=== PATIENT | male | born 2005 | race Caucasian/White ===

== ENCOUNTER 2025-04-20 10:02 | Emergency (ER) | payer MEDICAID, SELFPAY ==
--- NOTE | ~2025-04-20 | XR_ITS ---
CLINICAL HISTORY: s p g tube placement Two-view abdomen Comparison: None provided Findings: Contrast was injected via a gastrostomy tube. The gastrostomy tube is at the level of the distal body of the stomach. There is no gastrostomy tube leak. There is gaseous distention of small bowel without dilatation at visualized levels. There is moderate fecal retention within the colon. IMPRESSION: The gastrostomy tube is at the level of the distal body of the stomach. There is no gastrostomy tube leak. This document has been electronically signed by: Jolie Mcneil MD on 04/20/2025 13:07:23
[2025-04-20 10:10] VITALS: BP 112/78; PULSE 88; O2SAT 98
[2025-04-20 10:37] VITALS: BP 96/68; PULSE 90; RESP 22; TEMP 36.9; O2SAT 98; BMI 24.0
[2025-04-20 11:06] VITALS: BP 104/81; PULSE 84; RESP 20; O2SAT 96
--- NOTE | 2025-04-20 11:09 | PC.NURSE ---
19 M presents to ED from [facility] for pulling out his GT tube. PT is anxious, alert, nonverbal at baseline d/t TBI. RR even and elevated likely d/t appearing anxious. No visible s/s of distress.
--- OUTSIDE RECORDS SUMMARY | 2025-04-20 11:25 | XMS_ITS | Encounter Summary ---
Author Organization [facility] Address [address] [place] [address] Care Team Providers Care Vault Mechanic Name Role Phone Konrad Ivy MD Primary Care Provider [phone] Encounter Details Date Type Department Care Team (Late st Contact Info) Description 03/05/2025 Lab Requisition [facility] - Main Lab [address] [facility] [place] [address] Konrad Ivy MD [address] [place] [address] [address] [place] Diffuse traumatic brain injury with loss of consciousness of unspecified duration, sequela (CMS/HCC V24) Social History Tobacco Use Types Packs/Day Years Used Date Smoking Tobacco: Never Assessed Sex and Gender Information Value Date Recorded Sex Assigned at Not on file Legal Sex Male 7:36 AM EDT Gender Identity Not on file Sexual Orientation Not on file documented as of this encounter Plan of Treatment Not on file documented as of this encounter Procedures Procedure Name Priority Date/Time Associated Diagnosis Comments COMPREHENSIVE METABOLIC PANEL Routine 03/05/2025 6:48 AM EDT Diffuse traumatic brain injury with loss of consciousness of unspecified duration, sequela (CMS/HCC V24) documented in this encounter Results * (ABNORMAL) Comprehensive metabolic panel (03/05/2025 6:48 AM EDT) Sodium 129(L) 133 - 145 mmol/L LAB CHEMISTRY METHOD 03/05/2025 8:14 AM T [facility] Potassium 4.8 3.5 - 5.5 mmol/L LAB CHEMISTRY METHOD 03/05/2025 8:14 AM EDT [facility] Comment:Hemolysis present Chloride 98 96 - 110 mmol/L LAB CHEMISTRY METHOD 03/05/2025 8:14 AM [facility] CO2 27 21 - 32 mmol/L LAB CHEMISTRY METHOD 03/05/2025 8:14 AM [facility] Anion Gap 4 3 - 11 LAB CHEMISTRY METHOD 03/05/2025 8:14 AM [facility] Glucose 72 70 - 100 mg/dL LAB CHEMISTRY METHOD 03/05/2025 8:14 AM [facility] BUN 10 5 - 25 mg/dL LAB CHEMISTRY METHOD 03/05/2025 8:14 AM [facility] Creatinine 0.55(L) 0.70 - 1.30 mg/dL LAB CHEMISTRY METHOD 03/05/2025 8:14 AM [facility] eGFR 145 >=60 mL/min/1. 73m2 LAB CHEMISTRY METHOD 03/05/2025 8:14 AM [facility] Comment:Calculation based on the Chronic Kidney Disease Epidemiology Collaboration (CKD-EPI) equation refit without adjustment for race. BUN/Creatinine Ratio 18.2 LAB CHEMISTRY METHOD 03/05/2025 8:14 AM [facility] Calcium 9.4 8.5 - 10.5 mg/dL LAB CHEMISTRY METHOD 03/05/2025 8:14 AM [facility] AST (SGOT) 16 10 - 42 unit/L LAB CHEMISTRY METHOD 03/05/2025 8:14 AM [facility] Comment:Hemolysis present ALT (SGPT) 28 10 - 60 unit/L LAB CHEMISTRY METHOD 03/05/2025 8:14 AM [facility] Alkaline Phosphatase 142(H) 42 - 121 unit/L LAB CHEMISTRY METHOD 03/05/2025 8:14 AM [facility] Total Protein 6.6 6.0 - 8.0 g/dL LAB CHEMISTRY METHOD 03/05/2025 8:14 AM [facility] Albumin 3.8 3.2 - 5.0 g/dL LAB CHEMISTRY METHOD 03/05/2025 8:14 AM EDT [facility] Total Bilirubin 0.2 0.0 - 1.4 mg/dL LAB CHEMISTRY METHOD 03/05/2025 8:14 AM EDT [facility] Blood Venous blood specimen / Unknown 03/05/2025 6:48 AM EDT 03/05/2025 7:37 AM EDT us Konrad Ivy MD LAB BLOOD ORDERABLES Final Resul t [facility] [address] [place] [address], documented in this encounter Visit Diagnoses Diagnosis Diffuse traumatic brain injury with loss of consciousness of unspecified duration, sequela (CMS/HCC V24) documented in this encounter Care Teams Vault Mechanic Relationship Specialty Start Date End Date Konrad Ivy MD [address] [place] [address] Dr [address] [place], [place] PCP - General Internal Medicine 12/03/24 documented as of this encounter
--- OUTSIDE RECORDS SUMMARY | 2025-04-20 11:25 | XMS_ITS | Encounter Summary ---
Author Organization [employer] Address [address] [place] [address] Care Team Providers Care Vacuum Cleaner Operator Name Role Phone Konrad Ivy MD Primary Care Provider [phone] Encounter Details Date Type Department Care Team (Late st Contact Info) Description 12/03/2024 Lab Requisition [facility] - Main Lab [address] [facility] [place] [address] Konrad Ivy MD [address] [place] [address] Dr [address] [place] Epilepsy, unspecified, not intractable, without status epilepticus (CMS/HCC V24, CMS/HCC V28) Social History Tobacco Use Types Packs/Day Years [...] Procedure Name Priority Date/Time Associated Diagnosis Comments CLOBAZAM AND METABOLITE Routine 12/03/2024 7:05 AM EDT Epilepsy, unspecified, not intractable, without status epilepticus (CMS/HCC V24, CMS/HCC V28) LIPID PANEL WITH REFLEX TO DIRECT LDL Routine 12/03/2024 7:05 AM EDT Epilepsy, unspecified, not intractable, without status epilepticus (CMS/HCC V24, CMS/HCC V28) LACOSAMIDE, SERUM OR PLASMA Routine 12/03/2024 7:05 AM EDT Epilepsy, unspecified, not intractable, without status epilepticus (CMS/HCC V24, CMS/HCC V28) CBC WITH AUTO DIFFERENTIAL Routine 12/03/2024 7:05 AM EDT Epilepsy, unspecified, not intractable, without status epilepticus (CMS/HCC V24, CMS/HCC V28) OXCARBAZEPINE LEVEL Routine 12/03/2024 7 :05 AM EDT Epilepsy, unspecified, not intractable, without status epilepticus (CMS/HCC V24, CMS/HCC V28) CBC AND DIFFERENTIAL Routine 12/03/2024 7:05 AM EDT Epilepsy, unspecified, not intractable, without status epilepticus (CMS/HCC V24, CMS/HCC V28) THYROID STIMULATING HORMONE Routine 12/03/2024 7:05 AM EDT Epilepsy, unspecified, not intractable, without status epilepticus (CMS/HCC V24, CMS/HCC V28) COMPREHENSIVE METABOLIC PANEL Routine 12/03/2024 7:05 AM EDT Epilepsy, unspecified, not intractable, without status epilepticus (CMS/HCC V24, CMS/HCC V28) documented in this encounter Results * Lacosamide level (12/03/2024 7:05 AM EDT) [facility] Lacosamide 2.1 mcg/mL 12/12/2024 4:40 PM EDT [facility] Comment: (Note) Expected concentrations of Lacosamide in patients receiving recommended daily dosages: Up to 15.0 mcg/mL.Toxic range not established. This test was developed and its analytical performance characteristics have been determined by [employer]. It has not been cleared or approved by the FDA. This assay has been validated pursuant to the CLIA regulations and is used for clinical purposes. [facility] [address] [place] [address],[address] [facility] [address] Mirna Cano MD, PhD Test Performed at: [facility] [address] [place] [address], [address] [place] [address] James Cano MD, PhD Blood Venous blood specimen / Unknown 12/03/2024 7:05 AM EDT 12/06/2024 12:04 PM EDT us Konrad Ivy MD LAB BLOOD ORDERABLES Final Resul [place] [address] * (ABNORMAL) CBC auto differential (12/03/2024 7:05 AM EDT) WBC 8.8 4.8 - 10.8 K/mcL LAB HEMETOLOGY METHOD 12/03/2024 8:47 AM EDT [facility] RBC 4.60 4.50 - 5.50 M/mcL LAB HEMETOLOGY METHOD 12/03/2024 8:47 AM [facility] Hemoglobin 13.8 13.5 - 17.5 g/dL LAB HEMETOLOGY METHOD 12/03/2024 8:47 AM [facility] Hematocrit 40.8(L) 42.0 - 54.0 % LAB HEMETOLOGY METHOD 12/03/2024 8:47 AM [facility] MCV 89.7 79.0 - 98.0 FL LAB HEMETOLOGY METHOD 12/03/2024 8:47 AM [facility] MCH 30.3 27.0 - 32.0 pcg LAB HEMETOLOGY METHOD 12/03/2024 8:47 AM [facility] MCHC 33.8 32.0 - 37.0 g/dL LAB HEMETOLOGY METHOD 12/03/2024 8:47 AM [facility] RDW 15.3(H) 11.0 - 15.0 % LAB HEMETOLOGY METHOD 12/03/2024 8:47 AM [facility] Platelets 225 130 - 400 K/mcL LAB HEMETOLOGY METHOD 12/03/2024 8:47 AM [facility] Comment:occ plt clump seen o n slide MPV 13.0(H) 7.0 - 11.0 FL LAB HEMETOLOGY METHOD 12/03/2024 8:47 AM [facility] NRBC 0.0 <1.0 % LAB HEMETOLOGY METHOD 12/03/2024 8:47 AM [facility] NRBC Absolute 0.00 <0.10 K/mcL LAB HEMETOLOGY METHOD 12/03/2024 8:47 AM [facility] Neutrophils Relative 48.3 % LAB HEMETOLOGY METHOD 12/03/2024 8:47 AM [facility] Comment:This is an appended report. These results have been appended to a previously preliminary verified report. Lymphocytes Relative 27.5 % LAB HEMETOLOGY METHOD 12/03/2024 8:47 AM [facility] Comment:This is an appended report. These results have been appended to a previously preliminary verified report. Monocytes Relative 21.0 % LAB HEMETOLOGY METHOD 12/03/2024 8:47 AM [facility] Comment:This is an appended report. These results have been appended to a previously preliminary verified report. Eosinophils Relative 2.0 % LAB HEMETOLOGY METHOD 12/03/2024 8:47 AM [facility] Comment:This is an appended report. These results have been appended to a previously preliminary verified report. Basophils Relative 1.1 % LAB HEMETOLOGY METHOD 12/03/2024 8:47 AM [facility] Comment:This is an appended report. These results have been appended to a previously preliminary verified report. Immature Granulocytes Relative 0.1 % LAB HEMETOLOGY METHOD 12/03/2024 8:47 AM [facility] Comment:This is an appended report. These results have been appended to a previously preliminary verified report. Neutrophils Absolute 4.26 1.50 - 7.00 K/mcL LAB HEMETOLOGY METHOD 12/03/2024 8:47 AM [facility] Comment:This is an appended report. These results have been appended to a previously preliminary verified report. Lymphocytes Absolute 2.43 1.00 - 5.00 K/mcL LAB HEMETOLOGY METHOD 12/03/2024 8:47 AM EDT [facility] Comment:This is an appended report. These results have been appended to a previously preliminary verified report. Monocytes Absolute 1.85(H) 0.20 - 1.00 K/[facility] 12/03/2024 8:47 AM EDT [facility] Comment:This is an appended report. These results have been appended to a previously preliminary verified report. Eosinophils Absolute 0.18 0.00 - 0.50 K/[facility] 12/03/2024 8:47 AM EDT [facility] Comment:This is an appended report. These results have been appended to a previously preliminary verified report. Basophils Absolute 0.10 0.00 - 0.20 K/[facility] LAB HEMETOLOGY METHOD 12/03/2024 8:47 AM EDT [facility] Comment:This is an appended report. These results have been appended to a previously preliminary verified report. Immature Granulocytes Absolute 0.01 0.00 - 0.03 K/[facility] 12/03/2024 8:47 AM EDT [facility] Comment:This is an appended report. These results have been appended to a previously preliminary verified report. Blood Venous blood specimen / Unknown 12/03/2024 7:05 AM EDT 12/03/2024 7:44 AM EDT us Konrad Ivy MD LAB BLOOD ORDERABLES Final Resul t [facility] ([facility]) [facility] [address] [place] [address], * Thyroid stimulating hormone (12/03/2024 7:05 AM EDT) TSH 1.04 0.40 - 4.00 mcIU/mL LAB CHEMISTRY METHOD 12/03/2024 10:58 AM EDT [facility] Blood Venous blood specimen / Unknown 12/03/2024 7:05 AM EDT 12/03/2024 7:44 AM EDT us Konrad Ivy MD LAB BLOOD ORDERABLES Final Resul t Performing Organization Address [facility]/ZIP Co de Phone Number [facility] [address] [place] [address], [place] [phone] * Oxcarbazepine level (12/03/2024 7:05 AM EDT) Oxcarbazepine 13.4 10 - 35 ug/mL 12/05/2024 1:46 PM EDT [facility] Comment: If applicable, any drug confirmation testing reported here was developed and the performance characteristics determined by [facility]. This confirmation testing has not been cleared or approved by the FDA. The laboratory is regulated under CLIA as qualified to perform high-complexity testing. This test is used for patient testing purposes. It should not be regarded as investigational or for research. Test performed at [facility], [address], [place] [address] Paris Brand MD, PhD - Fur Storage Clerk Blood Venous blood specimen / Unknown 12/03/2024 7:05 AM EDT 12/03/2024 7:44 AM EDT us Konrad Ivy MD LAB BLOOD ORDERABLES Final Resul t Performing Organization Address City/[facility]/ZIP Co de Phone Number [facility] [address] [place] [address] * (ABNORMAL) Clobazam and metabolite (12/03/2024 7:05 AM EDT) Clobazam 117 30 - 300 ng/mL 12/09/2024 7:43 AM EDT [facility] Comment: INTERPRETIVE INFORMATION: Clobazam and Metabolite, Quant, S/P Clobazam Therapeutic Range: 30-300 ng/mL Toxic Range: Greater than 500 ng/mL N-Desmethylclobazam Therapeutic Range: 300-3000 ng/mL Toxic Range: Greater than 5000 ng/mL Clobazam is a benzodiazepine drug indicated for adjunctive treatment for seizures associated with Erasmo-Gastaut syndrome in patients 2 years and older. The therapeutic range is based on serum, pre-dose (trough) draw collection at steady-state concentration. The pharmacokinetics of clobazam are influenced by drug-drug interactions and by poor [id number] metabolism. The metabolite, N-desmethylclobazam has about 20% activity of clobazam. Adverse effects may include constipation, somnolence, sedation and skin rash. The concomitant use of clobazam with other central nervous system (PROJECT MANAGEMENT DIRECTOR) depressants may increase the risk of somnolence and sedation. Test developed and characteristics determined by [facility] [employer] See Compliance Statement B: Ch[place]/CS N-Desmethylclobazam 3375(H) 300 - 3000 ng/mL 12/09/2024 7:43 AM EDT [facility] Comment: Performed By: [facility] [address] [place] [address] Coin Teller: Emeka Granados MD, PhD CLIA Number: [id number] Blood Venous blood specimen / Unknown 12/03/2024 7:05 AM EDT 12/03/2024 7:44 AM EDT us Konrad Ivy MD LAB BLOOD ORDERABLES Final Resul t [facility] [address] [place] [address] * Lipid panel with reflex to direct LDL (12/03/2024 7:05 AM EDT) [facility] Cholesterol 156 0 - 200 mg/dL LAB CHEMISTRY METHOD 12/03/2024 8:55 AM EDT [facility] Triglycerides 67 0 - 150 mg/dL LAB CHEMISTRY METHOD 12/03/2024 8:55 AM EDT [facility] HDL 52 >=40 mg/dL LAB CHEMISTRY METHOD 12/03/2024 8:55 AM EDT [facility] LDL Calculated 91 0 - 100 mg/dL LAB CHEMISTRY METHOD 12/03/2024 8:55 AM EDT [facility] VLDL Cholesterol Adam 13.4 mg/dL LAB CHEMISTRY METHOD 12/03/2024 8:55 AM [facility] Non HDL Chol. (LDL+VLDL) 104 <145 mg/dL LAB CHEMISTRY METHOD 12/03/2024 8:55 AM T [facility] Chol/HDL Ratio 3.0 0.0 - 4.4 LAB CHEMISTRY METHOD 12/03/2024 8:55 AM [facility] Blood Venous blood specimen / Unknown 12/03/2024 7:05 AM EDT 12/03/2024 7:44 AM EDT us Konrad Ivy MD LAB BLOOD ORDERABLES Final Resul t [facility] [address] [place] [address], [place] [phone] * (ABNORMAL) Comprehensive metabolic panel (12/03/2024 7:05 AM EDT) Sodium 133 133 - 145 mmol/L LAB CHEMISTRY METHOD 12/03/2024 8:55 AM [facility] Potassium 4.3 3.5 - 5.5 mmol/L LAB CHEMISTRY METHOD 12/03/2024 8:55 AM [facility] Comment:Hemolysis present Chloride 101 96 - 110 mmol/L LAB CHEMISTRY METHOD 12/03/2024 8:55 AM [facility] CO2 25 21 - 32 mmol/L LAB CHEMISTRY METHOD 12/03/2024 8:55 AM [facility] Anion Gap 7 3 - 11 LAB CHEMISTRY METHOD 12/03/2024 8:55 AM [facility] Glucose 80 70 - 100 mg/dL LAB CHEMISTRY METHOD 12/03/2024 8:55 AM [facility] BUN 9 5 - 25 mg/dL LAB CHEMISTRY METHOD 12/03/2024 8:55 AM [facility] Creatinine 0.40(L) 0.70 - 1.30 mg/dL LAB CHEMISTRY METHOD 12/03/2024 8:55 AM [facility] eGFR 161 >=60 mL/min/1. 73m2 LAB CHEMISTRY METHOD 12/03/2024 8:55 AM [facility] Comment:Calculation based on the Chronic Kidney Disease Epidemiology Collaboration (CKD-EPI) equation refit without adjustment for race. BUN/Creatinine Ratio 22.5 LAB CHEMISTRY METHOD 12/03/2024 8:55 AM [facility] Calcium 9.4 8.5 - 10.5 mg/dL LAB CHEMISTRY METHOD 12/03/2024 8:55 AM [facility] AST (SGOT) 20 10 - 42 unit/L LAB CHEMISTRY METHOD 12/03/2024 8:55 AM [facility] Comment:Hemolysis present ALT (SGPT) 23 10 - 60 unit/L LAB CHEMISTRY METHOD 12/03/2024 8:55 AM [facility] Alkaline Phosphatase 144(H) 42 - 121 unit/L LAB CHEMISTRY METHOD 12/03/2024 8:55 AM [facility] Total Protein 6.7 6.0 - 8.0 g/dL LAB CHEMISTRY METHOD 12/03/2024 8:55 AM [facility] Albumin 3.5 3.2 - 5.0 g/dL LAB CHEMISTRY METHOD 12/03/2024 8:55 AM [facility] Total Bilirubin 0.3 0.0 - 1.4 mg/dL LAB CHEMISTRY METHOD 12/03/2024 8:55 AM [facility] Blood Venous blood specimen / Unknown 12/03/2024 7:05 AM EDT 12/03/2024 7:44 AM EDT Konrad Ivy MD LAB BLOOD ORDERABLES Final Resul t [facility] ([facility]) [facility] [address] [place] [address], documented in this encounter Visit Diagnoses Diagnosis Epilepsy, unspecified, not intractable, without status epilepticus (CMS/HCC V24, CMS/HCC V28) documented in this encounter Care Teams Vacuum Cleaner Operator Relationship Specialty Start Date End Date Konrad Ivy MD [address] [place] [address] Dr [address] [place], [place] PCP - General Internal Medicine 12/03/24 documented as of this encounter
--- OUTSIDE RECORDS SUMMARY | 2025-04-20 11:26 | XMS_ITS | Clinical Summary ---
Author Organization [address] [facility] Address [address] [place] [address] Phone Care Team Providers Care Mud Mixer Helper Name Role Phone Konrad Ivy MD Primary Care Provider [phone] Encounters Date Type Department Care Team Description 03/28/2025 Lab Requisition [facility] [address] [place] [phone] Konrad Ivy MD Hypo-osmolality and hyponatremia 03/21/2025 Lab Requisition [facility] [address] [place] [phone] Konrad Ivy MD Other senior care (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; Hypo-osmolality and hyponatremia 03/12/2025 Lab Requisition [facility] [address] [place] [phone] Konrad Ivy MD Other senior care (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 03/05/2025 Lab Requisition [facility] [address] [place] [phone] Konrad Ivy MD Diffuse traumatic brain injury with loss of consciousness of unspecified duration, sequela (CMS/HCC V24) from Last 3 Months Social History Tobacco Use Types Packs/Day Years Used Date Smoking Tobacco: Never Assessed Sex and Gender Information Value Date Recorded Sex Assigned at Not on file Legal Sex Male 7:36 AM EDT Gender Identity Not on file Sexual Orientation Not on file Plan of Treatment Health Maintenance Due Date Last Done Comments Varicella Vaccines (1 of 2 - 13+ 2-dose series) 2017 HPV Vaccines (1 - Male 3-dos e series) 10/08/2019 Meningococcal B Vaccine (1 o f 2 - Standard) 2020 DTaP,Tdap,and Td Vaccines (1 - Tdap) 10/08/2023 Hepatitis B Vaccines (1 of 3 - 19+ 3-dose series) 10/08/2023 Depression Screening 07/31/2024 Annual Well Child Visit (3-2 1 years old) 12/03/2024 HIV Screening 12/03/2024 Hepatitis C Screening 12/03/2024 Social Influencers of Health Screening 12/03/2024 COVID-19 Vaccine (1 - 2023-2 5 season) 2025 Influenza Vaccine (#1) 2025 Cholesterol Screening (Lipid Panel) 12/03/2029 12/03/2024 RSV Immunization Adult Patie nts (1 - 1-dose 75+ series) 10/08/2079 HIB Vaccines Aged Out No longer eligi ble based on patient's age to complete this topic Hepatitis A Vaccines Aged Out No long er eligible based on patient's age to complete this topic IPV Vaccines Aged Out No longer eligi ble based on patient's age to complete this topic MMR Vaccines Aged Out No longer eligi ble based on patient's age to complete this topic Meningococcal ACWY Vaccine Aged Out N o longer eligible based on patient's age to complete this topic Pneumococcal Vaccine: Pediat rics (0 to 5 Years) and At-Risk Patients (6 to 49 Years) Aged Out No longer eligi ble based on patient's age to complete this topic RSV Immunization Patients Un felipe 20 months Aged Out No longer eligible b ased on patient's age to complete this topic Procedures Procedure Name Priority Date/Time Associated Diagnosis Comments COMPREHENSIVE METABOLIC PANEL Routine 03/28/2025 7:12 AM EDT Hypo-osmolality and hyponatremia OXCARBAZEPINE LEVEL Routine 03/21/2025 6 :15 AM EDT 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 Hypo-osmolality and hyponatremia BASIC METABOLIC PANEL Routine 03/21/2025 6:15 AM EDT Other senior care (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 Hypo-osmolality and hyponatremia COMPREHENSIVE METABOLIC PANEL Routine 03/12/2025 6:15 AM EDT Other senior care (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 COMPREHENSIVE METABOLIC PANEL Routine 03/05/2025 6:48 AM EDT Diffuse traumatic brain injury with loss of consciousness of unspecified duration, sequela ([facility] V24) LIPID PANEL WITH REFLEX TO DIRECT LDL Routine 12/03/2024 7:05 AM EDT Epilepsy, unspecified, not intractable, without status epilepticus ([facility] V24, [facility] V28) from Last 3 Months or Most Recently Relevant to Health Maintenance Results * (ABNORMAL) Comprehensive metabolic panel (03/28/2025 7:12 AM EDT) Only the most recent of3 resultswithin the time period is included. Sodium 131(L) 133 - 145 mmol/L LAB CHEMISTRY METHOD 03/28/2025 8:26 AM [facility] Potassium 4.8 3.5 - 5.5 mmol/L LAB CHEMISTRY METHOD 03/28/2025 8:26 AM [facility] Chloride 97 96 - 110 mmol/L LAB CHEMISTRY METHOD 03/28/2025 8:26 AM [facility] CO2 29 21 - 32 mmol/L LAB CHEMISTRY METHOD 03/28/2025 8:26 AM [facility] Anion Gap 5 3 - 11 LAB CHEMISTRY METHOD 03/28/2025 8:26 AM [facility] Glucose 76 70 - 100 mg/dL LAB CHEMISTRY METHOD 03/28/2025 8:26 AM [facility] BUN 12 5 - 25 mg/dL LAB CHEMISTRY METHOD 03/28/2025 8:26 AM [facility] Creatinine 0.53(L) 0.70 - 1.30 mg/dL LAB CHEMISTRY METHOD 03/28/2025 8:26 AM [facility] eGFR 147 >=60 mL/min/1. 73m2 LAB CHEMISTRY METHOD 03/28/2025 8:26 AM [facility] Comment:Calculation based on the Chronic Kidney Disease Epidemiology Collaboration (CKD-EPI) equation refit without adjustment for race. BUN/Creatinine Ratio 22.6 LAB CHEMISTRY METHOD 03/28/2025 8:26 AM T [facility] Calcium 9.2 8.5 - 10.5 mg/dL LAB CHEMISTRY METHOD 03/28/2025 8:26 AM [facility] AST (SGOT) 16 10 - 42 unit/L LAB CHEMISTRY METHOD 03/28/2025 8:26 AM [facility] ALT (SGPT) 26 10 - 60 unit/L LAB CHEMISTRY METHOD 03/28/2025 8:26 AM [facility] Alkaline Phosphatase 141(H) 42 - 121 unit/L LAB CHEMISTRY METHOD 03/28/2025 8:26 AM [facility] Total Protein 6.7 6.0 - 8.0 g/dL LAB CHEMISTRY METHOD 03/28/2025 8:26 AM [facility] Albumin 3.8 3.2 - 5.0 g/dL LAB CHEMISTRY METHOD 03/28/2025 8:26 AM [facility] Total Bilirubin 0.3 0.0 - 1.4 mg/dL LAB CHEMISTRY METHOD 03/28/2025 8:26 AM [facility] Blood Venous blood specimen / Unknown 03/28/2025 7:12 AM EDT 03/28/2025 7:58 AM EDT us Konrad Ivy MD LAB BLOOD ORDERABLES Final Resul t [facility] [address] [place] [address], * Oxcarbazepine level (03/21/2025 6:15 AM EDT) Oxcarbazepine 29.7 10 - 35 ug/mL 03/24/2025 2:40 PM EDT [facility] Comment: If applicable, any drug confirmation testing reported here was developed and the performance characteristics determined by [facility]. This confirmation testing has not been cleared or approved by the FDA. The laboratory is regulated under CLIA as qualified to perform high-complexity testing. This test is used for patient testing purposes. It should not be regarded as investigational or for research. Test performed at [facility], [address], [place] [address] Paris Brand MD, PhD - Team Facilitator Blood Venous blood specimen / Unknown 03/21/2025 6:15 AM EDT 03/21/2025 6:52 AM EDT us Konrad Ivy MD LAB BLOOD ORDERABLES Final Resul t [facility] [address] [place] [address] * (ABNORMAL) Basic metabolic panel (03/21/2025 6:15 AM EDT) Sodium 128(L) 133 - 145 mmol/L LAB CHEMISTRY METHOD 03/21/2025 7:30 AM [facility] Potassium 5.5 3.5 - 5.5 mmol/L LAB CHEMISTRY METHOD 03/21/2025 7:30 AM [facility] Chloride 95(L) 96 - 110 mmol/L LAB CHEMISTRY METHOD 03/21/2025 7:30 AM [facility] CO2 24 21 - 32 mmol/L LAB CHEMISTRY METHOD 03/21/2025 7:30 AM [facility] Anion Gap 9 3 - 11 LAB CHEMISTRY METHOD 03/21/2025 7:30 AM [facility] Glucose 73 70 - 100 mg/dL LAB CHEMISTRY METHOD 03/21/2025 7:30 AM [facility] BUN 11 5 - 25 mg/dL LAB CHEMISTRY METHOD 03/21/2025 7:30 AM [facility] Creatinine 0.42(L) 0.70 - 1.30 mg/dL LAB CHEMISTRY METHOD 03/21/2025 7:30 AM EDT [facility] eGFR 158 >=60 mL/min/1. 73m2 LAB CHEMISTRY METHOD 03/21/2025 7:30 AM T [facility] Comment:Calculation based on the Chronic Kidney Disease Epidemiology Collaboration (CKD-EPI) equation refit without adjustment for race. BUN/Creatinine Ratio 26.2 LAB CHEMISTRY METHOD 03/21/2025 7:30 AM [facility] Calcium 9.5 8.5 - 10.5 mg/dL LAB CHEMISTRY METHOD 03/21/2025 7:30 AM [facility] Blood Venous blood specimen / Unknown 03/21/2025 6:15 AM EDT 03/21/2025 6:52 AM EDT us Konrad Ivy MD LAB BLOOD ORDERABLES Final Resul t [facility] [address] [place] [address], [place] [phone] * Lipid panel with reflex to direct LDL (12/03/2024 7:05 AM EDT) Cholesterol 156 0 - 200 mg/dL LAB CHEMISTRY METHOD 12/03/2024 8:55 AM [facility] Triglycerides 67 0 - 150 mg/dL LAB CHEMISTRY METHOD 12/03/2024 8:55 AM EDT [facility] HDL 52 >=40 mg/dL LAB CHEMISTRY METHOD 12/03/2024 8:55 AM EDT [facility] LDL Calculated 91 0 - 100 mg/dL LAB CHEMISTRY METHOD 12/03/2024 8:55 AM T [facility] VLDL Cholesterol Adam 13.4 mg/dL LAB CHEMISTRY METHOD 12/03/2024 8:55 AM EDT [facility] Non HDL Chol. (LDL+VLDL) 104 <145 mg/dL LAB CHEMISTRY METHOD 12/03/2024 8:55 AM EDT [facility] Chol/HDL Ratio 3.0 0.0 - 4.4 LAB CHEMISTRY METHOD 12/03/2024 8:55 AM EDT [facility] Blood Venous blood specimen / Unknown 12/03/2024 7:05 AM EDT 12/03/2024 7:44 AM EDT us Konrad Ivy MD LAB BLOOD ORDERABLES Final Resul t [facility] [address] [place] [address], from Last 3 Months or Most Recently Relevant to Health Maintenance Insurance MEDICAID - [place] [facility] Care Teams Mud Mixer Helper Relationship Specialty Start Date End Date Konrad Ivy MD [address] [place] [address] [address] DIL[place]aff[place] PCP - General Internal Medicine 12/03/24
--- OUTSIDE RECORDS SUMMARY | 2025-04-20 11:26 | XMS_ITS | Encounter Summary ---
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 Social History Tobacco Use Types Packs/Day Years [...] Associated Diagnosis Comments COMPREHENSIVE METABOLIC PANEL Routine 03/12/2025 6:15 AM EDT Other correction (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 documented in this encounter Results * (ABNORMAL) Comprehensive metabolic panel (03/12/2025 6:15 AM EDT) Sodium 132(L) 133 - 145 mmol/L LAB CHEMISTRY METHOD 03/12/2025 8:11 AM EDT [facility] Potassium 4.7 3.5 - 5.5 mmol/L LAB CHEMISTRY METHOD 03/12/2025 8:11 AM EDT [facility] Chloride 98 96 - 110 mmol/L LAB CHEMISTRY METHOD 03/12/2025 8:11 AM [facility] CO2 28 21 - 32 mmol/L LAB CHEMISTRY METHOD 03/12/2025 8:11 AM [facility] Anion Gap 6 3 - 11 LAB CHEMISTRY METHOD 03/12/2025 8:11 AM [facility] Glucose 70 70 - 100 mg/dL LAB CHEMISTRY METHOD 03/12/2025 8:11 AM [facility] BUN 8 5 - 25 mg/dL LAB CHEMISTRY METHOD 03/12/2025 8:11 AM [facility] Creatinine 0.47(L) 0.70 - 1.30 mg/dL LAB CHEMISTRY METHOD 03/12/2025 8:11 AM [facility] eGFR 153 >=60 mL/min/1. 73m2 LAB CHEMISTRY METHOD 03/12/2025 8:11 AM [facility] Comment:Calculation based on the Chronic Kidney Disease Epidemiology Collaboration (CKD-EPI) equation refit without adjustment for race. BUN/Creatinine Ratio 17.0 LAB CHEMISTRY METHOD 03/12/2025 8:11 AM [facility] Calcium 9.3 8.5 - 10.5 mg/dL LAB CHEMISTRY METHOD 03/12/2025 8:11 AM [facility] AST (SGOT) 17 10 - 42 unit/L LAB CHEMISTRY METHOD 03/12/2025 8:11 AM [facility] ALT (SGPT) 21 10 - 60 unit/L LAB CHEMISTRY METHOD 03/12/2025 8:11 AM [facility] Alkaline Phosphatase 170(H) 42 - 121 unit/L LAB CHEMISTRY METHOD 03/12/2025 8:11 AM [facility] Total Protein 7.4 6.0 - 8.0 g/dL LAB CHEMISTRY METHOD 03/12/2025 8:11 AM [facility] Albumin 4.0 3.2 - 5.0 g/dL LAB CHEMISTRY METHOD 03/12/2025 8:11 AM [facility] Total Bilirubin 0.3 0.0 - 1.4 mg/dL LAB CHEMISTRY METHOD 03/12/2025 8:11 AM EDT [facility] Blood Venous blood specimen / Unknown 03/12/2025 6:15 AM EDT 03/12/2025 6:47 AM EDT us Konrad Ivy MD LAB BLOOD ORDERABLES Final Resul t [facility] [address] [place] [address], documented in this encounter Visit Diagnoses Diagnosis 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
--- OUTSIDE RECORDS SUMMARY | 2025-04-20 11:26 | XMS_ITS | Encounter Summary ---
[facility] Address [address] [place] [address] Care Team Providers Care Head Still Operator Name Role Phone Konrad Ivy MD Primary Care Provider [phone] Encounter Details Date Type Department Care Team (Late st Contact Info) Description 03/28/[address] [facility] - Main Lab [address] [place] [address] Konrad Ivy MD [address] [place] [address] Dr [address] [place] Hypo-osmolality and hyponatremia Social History Tobacco Use Types Packs/Day Years [...] 03/28/2025 7:12 AM EDT Hypo-osmolality and hyponatremia documented in this encounter Results * (ABNORMAL) Comprehensive metabolic panel (03/28/2025 7:12 AM EDT) Sodium 131(L) 133 - 145 mmol/L LAB CHEMISTRY METHOD 03/28/2025 8:26 AM EDT [facility] Potassium 4.8 3.5 - 5.5 mmol/L LAB CHEMISTRY METHOD 03/28/2025 8:26 AM EDT [facility] Chloride 97 96 - 110 mmol/L LAB CHEMISTRY METHOD 03/28/2025 8:26 AM T [facility] CO2 29 21 - 32 mmol/L LAB CHEMISTRY METHOD 03/28/2025 8:26 AM [facility] Anion Gap 5 3 - 11 LAB CHEMISTRY METHOD 03/28/2025 8:26 AM [facility] Glucose 76 70 - 100 mg/dL LAB CHEMISTRY METHOD 03/28/2025 8:26 AM [facility] BUN 12 5 - 25 mg/dL LAB CHEMISTRY METHOD 03/28/2025 8:26 AM [facility] Creatinine 0.53(L) 0.70 - 1.30 mg/dL LAB CHEMISTRY METHOD 03/28/2025 8:26 AM [facility] eGFR 147 >=60 mL/min/1. 73m2 LAB CHEMISTRY METHOD 03/28/2025 8:26 AM [facility] Comment:Calculation based on the Chronic Kidney Disease Epidemiology Collaboration (CKD-EPI) equation refit without adjustment for race. BUN/Creatinine Ratio 22.6 LAB CHEMISTRY METHOD 03/28/2025 8:26 AM [facility] Calcium 9.2 8.5 - 10.5 mg/dL LAB CHEMISTRY METHOD 03/28/2025 8:26 AM [facility] AST (SGOT) 16 10 - 42 unit/L LAB CHEMISTRY METHOD 03/28/2025 8:26 AM [facility] ALT (SGPT) 26 10 - 60 unit/L LAB CHEMISTRY METHOD 03/28/2025 8:26 AM [facility] Alkaline Phosphatase 141(H) 42 - 121 unit/L LAB CHEMISTRY METHOD 03/28/2025 8:26 AM [facility] Total Protein 6.7 6.0 - 8.0 g/dL LAB CHEMISTRY METHOD 03/28/2025 8:26 AM [facility] Albumin 3.8 3.2 - 5.0 g/dL LAB CHEMISTRY METHOD 03/28/2025 8:26 AM [facility] Total Bilirubin 0.3 0.0 - 1.4 mg/dL LAB CHEMISTRY METHOD 03/28/2025 8:26 AM EDT [facility] Blood Venous blood specimen / Unknown 03/28/2025 7:12 AM EDT 03/28/2025 7:58 AM EDT us Konrad Ivy MD LAB BLOOD ORDERABLES Final Resul t [facility] [address] [place] [address], documented in this encounter Visit Diagnoses Diagnosis Hypo-osmolality and hyponatremia documented in this encounter Care Teams Head Still Operator Relationship Specialty Start Date End Date Konrad Ivy MD [address] [place] [address] Dr [address] [place], [place] PCP - General Internal Medicine 12/03/24 documented as of this encounter
--- OUTSIDE RECORDS SUMMARY | 2025-04-20 11:26 | XMS_ITS | Encounter Summary ---
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; Hypo-osmolality and hyponatremia Social History Tobacco Use [...] Procedure Name Priority Date/Time Associated Diagnosis Comments OXCARBAZEPINE LEVEL Routine 03/21/2025 6 :15 AM EDT 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 This confirmation testing has not been cleared or approved by the FDA. The laboratory is regulated under CLIA as qualified to perform high-complexity testing. This test is used for patient testing purposes. It should not be regarded as investigational or for research. Test performed at [facility], [address], [place] [address] Paris Brand MD, PhD - Retail Supervisor Blood Venous blood specimen / Unknown 03/21/2025 6:15 AM EDT 03/21/2025 6:52 AM EDT us Konrad Ivy MD LAB BLOOD ORDERABLES Final Resul t [facility] [address] [place] [address] * (ABNORMAL) Basic metabolic panel (03/21/2025 6:15 AM EDT) Sodium 128(L) 133 - 145 mmol/L LAB CHEMISTRY METHOD 03/21/2025 7:30 AM [facility] Potassium 5.5 3.5 - 5.5 mmol/L LAB CHEMISTRY METHOD 03/21/2025 7:30 AM [facility] Chloride 95(L) 96 - 110 mmol/L LAB CHEMISTRY METHOD 03/21/2025 7:30 AM [facility] CO2 24 21 - 32 mmol/L LAB CHEMISTRY METHOD 03/21/2025 7:30 AM [facility] Anion Gap 9 3 - 11 LAB CHEMISTRY METHOD 03/21/2025 7:30 AM [facility] Glucose 73 70 - 100 mg/dL LAB CHEMISTRY METHOD 03/21/2025 7:30 AM [facility] BUN 11 5 - 25 mg/dL LAB CHEMISTRY METHOD 03/21/2025 7:30 AM [facility] Creatinine 0.42(L) 0.70 - 1.30 mg/dL LAB CHEMISTRY METHOD 03/21/2025 7:30 AM [facility] eGFR 158 >=60 mL/min/1. 73m2 LAB CHEMISTRY METHOD 03/21/2025 7:30 AM EDT [facility] Comment:Calculation based on the Chronic Kidney Disease Epidemiology Collaboration (CKD-EPI) equation refit without adjustment for race. 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
--- NOTE | 2025-04-20 11:31 | ED_ITS ---
HPI - General Adult General Chief complaint: General Medical Stated complaint: g-tube out Time Seen by Provider: 04/20/25 10:25 Source: EMS and RN notes reviewed Mode of arrival: EMS Limitations: no limitations History of Present Illness ED Provider: DR. Baker HPI narrative: 19-year-old male from care 1 came in by ambulance for G-tube placement. Patient is nonverbal non historian old records are not available to review patient's history. Related Data Allergies Allergy/AdvReac Type Severity Reaction Status Date / Time cefepime Allergy Unknown Verified 04/20/25 10:42 Sulfa (Sulfonamide Allergy Unknown Verified 04/20/25 10:42 Antibiotics) trimethoprim Allergy Unknown Verified 04/20/25 10:42 Review of Systems Review of Systems: All other systems are reviewed and are negative Constitutional: Reports as per HPI and Reports no additional constitutional complaints Eyes: Reports as per HPI and Reports no additional eye complaints Reports system reviewed and no additional complaints, except as documented Cardiovascular: Reports as per HPI and Reports no additional cardiovascular complaints Respiratory: Reports as per HPI and Reports no additional respiratory complaints Gastrointestinal: Reports as per HPI and Reports no additional gastrointestinal complaints Genitourinary: Reports no additional female genitourinary complaints Musculoskeletal: Reports no additional musculoskeletal complaints Skin/Breast: Reports system reviewed and no additional complaints, except as docu Psychiatric: Reports no additional psychiatric complaints Endocrine: Reports no additional endocrine complaints Hematologic/Lymphatic: Reports no additional hematologic/lymphatic complaints Allergic/Immunologic: Reports no additional allergic/immunologic complaints Reports system reviewed and no additional complaints, except as documented and Reports Abnormal speech present [facility] Social History Social History Smoked in Last 30 Days: No Advance Directives: No Advance Directives Information Provided: No Do you have a plan to hurt others: No Plan Physical Exam ED Vital Signs: Vital Signs - 24 hr 04/20/25 10:37 04/20/25 11:06 04/20/25 12:00 Temperature 98.5 F 97.4 F Pulse Rate 90 84 91 Respiratory Rate 22 H 20 16 Blood Pressure 96/68 104/81 94/54 L Pulse Oximetry 98 96 95 Oxygen Delivery Method Room Air Room Air Room Air BMI result Body Mass Index 24.0 Vital signs have been reviewed and appear to be correct. Blood pressure elevated. Heart rate normal. Respiratory rate normal. Temperature normal. Oxygen saturation normal. Appearance: Alert. Nonverbal, No acute distress. Head: Normal external exam. Normocephalic. Atraumatic. No Suarez signs noted. No raccoon eyes noted Eyes: PERRLA. EOMI. Conjunctiva and sclera normal. Eyelids normal. ENT: TM's Normal. Pharynx normal. Uvula midline. Moist mucous membranes. No trismus noted. No drooling noted. No muffled voice noted. Neck: Normal inspection. Neck supple. FROM. No adenopathy. Thyroid Normal. No meningeal signs. No neck mass noted. CVS: Normal heart rate and rhythm. Heart sound normal. No murmurs noted. Pulses normal throughout. Respiratory: No respiratory distress. Painless inspiration. Breath sounds normal. No wheezes/rales/rhonchi noted. Chest nontender. No accessory muscle usage noted or decreased air movement noted. Abdomen: Soft and nontender. Bowel sounds normal in all 4 quadrants. No distention noted. No organomegaly noted. No visible injury noted. Back: No CVA tenderness. Full range of motion noted. Skin: Skin warm and dry. Normal skin color. Normal skin turgor. No rashes/lesions/lacerations noted. Extremities: No lower extremity edema. Extremities exhibit normal range of motion. Extremities nontender. Neuro: Nonverbal. Course Reevaluation(s) Reevaluation #1: G-tube placement, KUB with Gastrografin confirmed placement. Time: 12:30 Medications Administered Discontinued Medications Generic Name Dose Route Start Last Admin Trade Name Freq PRN Reason Stop Dose Admin Diatrizoate Meglum/Diatrizoate Sod 30 ml 04/20/25 11:55 04/20/25 11:56 Diatrizoate Meglumine, Sodium 30 Ml Solution PO 04/20/25 11:56 30 ml ONCE ONE Administration Medical Decision Making Differential Diagnosis Differential Diagnoses: The differential diagnosis associated with the presentation includes (G-tube insertion, small-bowel obstruction.) Admission/Observation Consideration of admission/observation: Escalation of care including admission/observation considered Independent Interpretation I performed an independent interpretation of an: Plain X-Ray (KUB with Gastrografin:Time: Date: 04/20/25 Provider: DR. Baker Patient in physician observation for psychiatric evaluation.? No acute events reported overnight. No current complaints. VS stable.? Patient is in bed search status. Will continue to monitor.) Radiology Impression Discussion of test interpretation with radiology: I have reviewed the radiologist's reading. Discharge Plan Discharge Clinical Impression: Gastrojejunostomy tube dislodgement Patient Disposition: Home, Self-Care Instructions: Tube Feeding (DC) Print Language: Croatian
[2025-04-20 12:00] VITALS: BP 94/54; PULSE 91; RESP 16; TEMP 36.3; O2SAT 95
--- NOTE | 2025-04-20 13:36 | PHA.MEDREC ---
Addendum entered by Dinora Ignacio RPh 04/20/25 16:31: MED REC REVIEWED BY [facility] Original Note: Pharmacy Consult ? Medication Reconciliation Pharmacy has completed the medication reconciliation. Utilized list from [facility] to confirm med list.
[2025-04-20 14:28] VITALS: BP 105/42; RESP 20
--- NOTE | 2025-04-20 14:32 | PC.NURSE ---
Report called to [facility] Ye[place] ROMERO. Report accept. Ambulance ride en-route.
== END 2025-04-20 15:01 ==
PROVIDERS: Emergency Provider Emergency Medicine; PCP Hospitalist
DX: K94.23 Gastrostomy malfunction (principal)
CPT/HCPCS: 74018; 99283; 99284

== ENCOUNTER → 2025-04-20 11:29 | Outpatient (BNV) | payer MEDICAID, SELFPAY | PROVIDERS: Emergency Provider Emergency Medicine; PCP Hospitalist; Visit Provider Radiology Diagnostic Radiology | DX: Z46.82 Encounter for fitting and adjustment of non-vascular catheter (principal) | CPT/HCPCS: 74018 ==

== ENCOUNTER 2025-04-21 18:02 | Emergency (ER) | payer OTHER, MEDICAID, SELFPAY ==
--- OUTSIDE RECORDS SUMMARY | 2025-04-17 10:30 | XMS_ITS | Encounter Summary ---
Author Organization [facility] Address [address] [place] [address] Care Team Providers Care Ui Lead Developer Name Role Phone Unavailable Primary Care Provider Unavailabl e Encounter Details Date Type Department Care Team (Late st Contact Info) Description 04/17/2025 10:30 AM EDT Office Visit [facility] [address] [place] [address] Daphne Luther, DDS [address] [place] [address] Social History Tobacco Use Types Packs/Day Years Used Date Smoking Tobacco: Never Assessed Sex and Gender Information Value Date Recorded Sex Assigned at Male 02/11/2025 2:23 PM EDT Legal Sex Male 2:12 PM EDT Gender Identity Male 02/11/2025 2:24 PM EDT Sexual Orientation Don't know 02/11/2025 2: 23 PM EDT documented as of this encounter Last Filed Vital Signs Vital Sign Reading Time Taken Comments Blood Pressure - - Pulse - - Temperature - - Respiratory Rate - - Oxygen Saturation - - Inhaled Oxygen Concentration - - Weight 65.3 kg (144 lb) 04/17/2025 9:00 AM EDT Height - - Body Mass Index - - documented in this encounter Progress Notes * Cher Baer DDS - 04/17/2025 10:30 AM EDT INTAKE Chief complaint: Desns appointment Time out performed verifying patient's name and Manufacturing Quality Manager needed: No VITALS Height: No data recorded Weight: 144 lb (65.3 kg) BMI: No previous contact with both weight and height data on file. MEDICAL HISTORY Medical History[1] Current Medications[2] Allergies[3] DENTAL HISTORY Brushing: Yes Flossing: No FINDINGS FROM EXAM Fabio: Unable to assess Mallampati: unable to assess Extraoral soft tissue: No significant findings Intraoral soft tissue: Patient has inflamed and bleeding gingiva Oral hygiene: Poor Radiographic: unable to obtain Caries present: No caries DENTAL OCCLUSION Dental Exam TREATMENT RECOMMENDATIONS Patient has oral thrush, patient for 1 additional month continue brushing the tongue with oral thrush, thrush appears to have improved greatly since last visit. Some coating on tongue remains, but not as significant as last visit. Speech therapist will work with the patient on keeping his mouth open for appointments. DISCUSSION Presented treatment recommendations- risks, benefits, and alternatives including no treatment. Shared decision-making approach used. Age-appropriate anticipatory guidance given (oral hygiene, fluoride, diet/nutrition, non-nutritive habits, trauma prevention, and growth and development). Discussed to contact [facility] during business hours or report to [facility] after hours in the event of a dental emergency. Parent/legal guardian had all questions answered. TREATMENT PROVIDED Dental procedures in this visit D9910 - DESENSITIZATION TREATMENT (Completed) Service provider: Cher Baer DDS Billing provider: Daphne Luther DDS [id number] - CASE PRESENTATION, DETAILED AND EXTENSIVE TREATMENT PLANNING (Completed) Service provider: Cher Baer DDS Billing provider: Daphne Luther DDS DENTAL PROVIDERS Dental Live Games Dealer: Ariella Fletcher Resident: Cher Baer DDS Attending: Daphne Luther DDS BEHAVIOR Frankl rating: F1 Behavior description: Patient had great improvement since last appointment, patient was able to receive a cleaning, light scaling on the lower right side, and fluoride varnish. Patient seemed to respond very well to the suction, something he was familiar with. He actually was able to keep his mouthopen without prompting when the suction was involved. I think at the next appointment it is something we should incorporate more to encourage mouth opening. The patient and care team will work on opening his mouth and oral stimulation activities. 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 of consciousness (more than 24 hours) without return to pre- existing level, subsequent encounter Other constipation Other hydrocephalus (CMS/HCC) Other nonspecific abnormal finding of lung field Other specified paralytic syndromes (CMS/HCC) Personal history of pneumonia (recurrent) Presence of cerebrospinal fluid drainage device Seborrheic dermatitis, unspecified Unspecified protein-calorie malnutrition ([facility]) [2] Current Outpatient Medications: acetaminophen (Tylenol) 160 MG/5ML suspension, Take 650 mg by mouth every 6 (six) hours if needed for mild pain., Disp: , Rfl: adapalene (Differin) 0.1 % cream, Apply 1 Application. topically at bedtime., Disp: , Rfl: aspirin 81 MG EC tablet, Take 81 mg by mouth Once per day., Disp: , Rfl: baclofen (Lioresal) 10 MG tablet, Take by mouth 3 times daily., Disp: , Rfl: baclofen (Lioresal) 10 MG tablet, Take by mouth 3 times daily., Disp: , Rfl: bisacodyl (Fleet Bisacodyl) 10 MG/30ML enema, Insert 10 mg into the rectum 1 (one) time., Disp: , Rfl: cloBAZam 20 MG film, Take 20 mg by mouth every 12 (twelve) hours., Disp: , Rfl: diazePAM (Valium) 5 mg/mL solution auto-injector injection, Inject 5 mg into the muscle if needed.,Disp: , Rfl: gabapentin (Neurontin) 300 MG capsule, Take 300 mg by mouth 3 times daily., Disp: , Rfl: ketoconazole (NIZOral) 2 % shampoo, Apply 1 Application. topically 2 (two) times a week., Disp: , Rfl: lacosamide (Vimpat) 10 mg/mL oral liquid, 200 mg by Per G Tube route every 12 (twelve) hours., Disp: , Rfl: magnesium hydroxide (Milk of Magnesia) 400 MG/5ML suspension, Take 30 mL by mouth at bedtime., Disp: , Rfl: OXcarbazepine (Trileptal) 300 MG tablet, 300 mg by Per G Tube route in the morning and 300 mg in the evening., Disp: , Rfl: polyethylene glycol, PEG, 3350 (Glycolax) 17 GM/SCOOP powder, 17 g by Per G Tube route 1 (one) time., Disp: , Rfl: white petrolatum gel, Apply 1 Application. topically if needed for dry skin., Disp: , Rfl: [3] Allergies Allergen Reactions Cefepime Chiaqu-Hmeiy-Ciywsvjrbfnz Allergic to adhesive tape Sulfadiazine Sulfamerazine Unknown Trimethoprim Unknown Vancomycin Unknown * Daphne Luther DDS - 04/17/2025 10:30 AM EDT I saw and evaluated the patient, participating in the russell portions of the service. I reviewed the resident???s note. I agree with the resident???s findings and plan. Daphne Luther DDS * Daphne Luther DDS - 04/17/2025 10:30 AM EDT I saw and evaluated the patient, participating in the russell portions of the service. I reviewed the resident???s note. I agree with the resident???s findings and plan. Daphne Luther DDS * Daphne Luther DDS - 04/17/2025 10:30 AM EDT I saw and evaluated the patient, participating in the russell portions of the service. I reviewed the resident???s note. I agree with the resident???s findings and plan. Daphne Luther DDS documented in this encounter Plan of Treatment Upcoming Encounters Date Type Department Care Team (Late st Contact Info) Description 05/22/2025 10:30 AM EDT Office Visit [facility] [address], [place] [id number] Arminda Harrell, CED [address] [place] [address] documented as of this encounter Procedures Procedure Name Priority Date/Time Associated Diagnosis Comments DESENSITIZATION TREATMENT Routine 2024 10:30 AM EDT CASE PRESENTATION, DETAILED AND EXTENSIVE TREATMENT PLANNING Routine 04/17/2025 10:30 AM EDT documented in this encounter Visit Diagnoses Not on filedocumented in this encounter
--- NOTE | ~2025-04-21 | XR_ITS ---
CLINICAL HISTORY: s p g tube placement 2 view abdomen Comparison: CR - XR KUB - 04/20/25 11:38 EDT Findings: No pneumoperitoneum or pneumatosis. No abnormal calcifications. No acute fractures. Left upper quadrant percutaneous gastrostomy tube is seen. The injected oral contrast is seen within the gastric fundus. No extravasation of the contrast is identified. IMPRESSION: Left upper quadrant percutaneous gastrostomy tube with injected oral contrast noted within the gastric fundus. No extravasation of the contrast is identified. This document has been electronically signed by: Brooke De La O MD on 04/21/2025 20:02:42
[2025-04-21 18:12] VITALS: BP 110/54; PULSE 71; RESP 16; TEMP 36.3; O2SAT 99
[2025-04-21 18:13] VITALS: BP 118/70; PULSE 73; O2SAT 97
[2025-04-21 18:17] VITALS: BMI 20.2
--- NOTE | 2025-04-21 18:25 | ED.GENADULT ---
HPI - General Adult General Chief complaint: General Medical Stated complaint: G-tube placement Time Seen by Provider: 04/21/25 18:09 Source: patient, EMS, RN notes reviewed and old records reviewed Mode of arrival: EMS Limitations: no limitations History of Present Illness ED Provider: DR. Baker HPI narrative: 19-year-old male history of TBI, nonverbal, bed ridden, came in for replacement of the G-tube. patient was here yesterday for G-tube replacement. Related Data Home Medications ?Medication ?Instructions ?Recorded ?Confirmed acetaminophen 160 mg/5 mL oral 650 mg feeding tube Q6H PRN Fever 04/20/25 04/20/25 elixir Or Pain adapalene 0.1 % topical cream 1 appl topical BEDTIME 04/20/25 04/20/25 (Differin) aspirin 81 mg chewable tablet 81 mg feeding tube DAILY 04/20/25 04/20/25 baclofen 10 mg tablet 30 mg feeding tube TID 04/20/25 04/20/25 bisacodyl 10 mg rectal suppository 10 mg GA DAILY PRN Constipation 04/20/25 04/20/25 clobazam 20 mg tablet 20 mg feeding tube BID 04/20/25 04/20/25 diazepam 5 mg/mL injection solution 5 mg IM ONCE PRN Seizures 04/20/25 04/20/25 docusate sodium 50 mg/5 mL oral 100 mg feeding tube DAILY PRN 04/20/25 04/20/25 liquid Constipation gabapentin 300 mg/6 mL (6 mL) oral 600 mg feeding tube TID 04/20/25 04/20/25 solution ketoconazole 2 % shampoo 1 appl topical MOWEFRSA 04/20/25 04/20/25 lacosamide 10 mg/mL oral solution 200 mg feeding tube BID 04/20/25 04/20/25 magnesium hydroxide 400 mg/5 mL 30 ml feeding tube DAILY PRN 04/20/25 04/20/25 oral suspension (Milk of Magnesia) Constipation nystatin 100,000 unit/mL oral 15 ml PO BID 04/20/25 04/20/25 suspension oxcarbazepine 300 mg/5 mL (60 900 mg feeding tube BID 04/20/25 04/20/25 mg/mL) oral suspension polyethylene glycol 3350 17 17 g feeding tube DAILY 04/20/25 04/20/25 gram/dose oral powder (Miralax) sennosides 8.8 mg/5 mL oral syrup 10 ml feeding tube Q48H PRN 04/20/25 04/20/25 (senna) Constipation sodium phosphates 19 gram-7 118 ml GA DAILY PRN Constipation 04/20/25 04/20/25 gram/118 mL enema (Fleet Enema) white petrolatum 1 appl topical Q2H PRN 04/20/25 04/20/25 dryness/irritation Allergies Allergy/AdvReac Type Severity Reaction Status Date / Time cefepime Allergy Unknown Verified 04/21/25 18:18 Sulfa (Sulfonamide Allergy Unknown Verified 04/21/25 18:18 Antibiotics) trimethoprim Allergy Unknown Verified 04/21/25 18:18 Review of Systems Review of Systems: Yes Unobtainable due to mental condition [facility] Social History Social History Advance Directives: No Advance Directives Information Provided: No Physical Exam ED Vital Signs: Vital Signs - 24 hr 04/21/25 18:12 Temperature 97.4 F Pulse Rate 71 Respiratory Rate 16 Blood Pressure 110/54 L Pulse Oximetry 99 Oxygen Delivery Method Room Air BMI result Body Mass Index 20.2 Vital signs have been reviewed and appear to be correct. Blood pressure elevated. Heart rate normal. Respiratory rate normal. Temperature normal. Oxygen saturation normal. Appearance: Alert. nonverbal, No acute distress. Head: Normal external exam. Normocephalic. Atraumatic. No Suarez signs noted. No raccoon eyes noted Eyes: PERRLA. EOMI. Conjunctiva and sclera normal. Eyelids normal. ENT: TM's Normal. Pharynx normal. Uvula midline. Moist mucous membranes. No trismus noted. No drooling noted. No muffled voice noted. Neck: Normal inspection. Neck supple. FROM. No adenopathy. Thyroid Normal. No meningeal signs. No neck mass noted. CVS: Normal heart rate and rhythm. Heart sound normal. No murmurs noted. Pulses normal throughout. Respiratory: No respiratory distress. Painless inspiration. Breath sounds normal. No wheezes/rales/rhonchi noted. Chest nontender. No accessory muscle usage noted or decreased air movement noted. Abdomen: Soft and nontender. Bowel sounds normal in all 4 quadrants. No distention noted. No organomegaly noted. No visible injury noted. Back: No CVA tenderness. Full range of motion noted. Skin: Skin warm and dry. Normal skin color. Normal skin turgor. No rashes/lesions/lacerations noted. Extremities: No lower extremity edema. Extremities exhibit normal range of motion. Extremities nontender. Neuro: nonverbal. Cranial nerve exam: II-XII are grossly intact No motor deficit. No sensory deficit. Reflexes normal. Course Reevaluation(s) Reevaluation #1: s/p G-tube placement in the ED with post placement x-ray confirmation. Will discharge the patient back to the [facility]. Time: 20:17 Medications Administered Discontinued Medications Generic Name Dose Route Start Last Admin Trade Name Freq PRN Reason Stop Dose Admin Diatrizoate Meglum/Diatrizoate Sod 30 ml 04/21/25 18:47 04/21/25 18:48 Diatrizoate Meglumine, Sodium 30 Ml Solution PO 04/21/25 18:48 30 ml ONCE ONE Administration Procedures Procedure Narrative Procedure Narrative: Placement of gastrostomy tube. Under sterile technique size 18 G-tube was easily passed through the hole in the left upper quadrant area, inflated with 10 cc of normal saline, Gastrografin was injected through the tube and x-ray post procedure confirmed placement. Medical Decision Making Differential Diagnosis Differential Diagnoses: The differential diagnosis associated with the presentation includes ( G-tube placement, Small-bowel obstruction.) Discharge Plan Discharge Clinical Impression: Gastrojejunostomy tube dislodgement Patient Disposition: Xfer SNF Instructions: Tube Feeding (DC) Prescriptions: No Action docusate sodium 50 mg/5 mL Liquid 100 mg feeding tube DAILY PRN (Reason: Constipation) Rx Instructions: If M.O.M ineffective nystatin 100,000 unit/mL suspension 15 ml PO BID Rx Instructions: use toothbrush wit nystatin solution to brush tongue ketoconazole 2 % shampoo 1 appl topical MOWEFRSA Rx Instructions: apply to scalp sennosides [senna] 8.8 mg/5 mL Syrup 10 ml feeding tube Q48H PRN (Reason: Constipation) adapalene [Differin] 0.1 % Cream 1 appl TOPICAL BEDTIME Rx Instructions: apply to back/neck and trunk magnesium hydroxide [Milk of Magnesia] 400 mg/5 mL Suspension 30 ml feeding tube DAILY PRN (Reason: Constipation) Rx Instructions: If no BM in 3 days white petrolatum Ointment 1 appl TOPICAL Q2H PRN (Reason: dryness/irritation) Rx Instructions: while awake Fleet Enema 19-7 gram/118 mL Enema 118 ml GA DAILY PRN (Reason: Constipation) Rx Instructions: If Bisacodyl Supp. ineffective polyethylene glycol 3350 [Miralax] 17 gram/dose Powder 17 g feeding tube DAILY oxcarbazepine 300 mg/5 mL (60 mg/mL) suspension 900 mg feeding tube BID lacosamide 10 mg/mL solution 200 mg feeding tube BID gabapentin 300 mg/6 mL (6 mL) Solution 600 mg feeding tube TID diazepam 5 mg/mL solution 5 mg IM ONCE PRN (Reason: Seizures) Rx Instructions: MAY REPEAT AFTER 5 MINUTES IF INEFFECTIVE baclofen 10 mg tablet 30 mg feeding tube TID bisacodyl 10 mg Suppository 10 mg GA DAILY PRN (Reason: Constipation) aspirin 81 mg Tablet,Chewable 81 mg feeding tube DAILY acetaminophen 160 mg/5 mL Elixir 650 mg feeding tube Q6H PRN (Reason: Fever Or Pain) clobazam 20 mg tablet 20 mg feeding tube BID Print Language: Taiwanese
--- NOTE | 2025-04-21 19:09 | PC.NURSE ---
this RN assumed care of this pt @1900, pending xray result, mother at the bedside, repositioned for comfort, no apparent distress noted
--- OUTSIDE RECORDS SUMMARY | 2025-04-21 19:32 | XMS_ITS | Encounter Summary ---
Author Organization [facility] Address [address] [place] [address] Phone Care Team Providers Care Sharepoint Application Architect Name Role Phone Nisa Starks MD Primary Care Provider [phone] Encounter Details Date Type Department Care Team (Late st Contact Info) Description 08/04/2015 Documentation [facility] [place] [address] [place] [address] Family Medicine, Physician [address] [place] [address] Social History Tobacco Use Types Packs/Day Years Used Date Smoking Tobacco: Never Assessed Sex and Gender Information Value Date Recorded Sex Assigned at Male 03/03/2023 6:16 PM EDT Legal Sex Male 3:44 PM EST Gender Identity Male 03/03/2023 6:16 PM EDT Sexual Orientation Straight 03/03/2023 6: 16 PM EDT documented as of this encounter Plan of Treatment Not on file documented as of this encounter Visit Diagnoses Not on filedocumented in this encounter Care Teams Sharepoint Application Architect Relationship Specialty Start Date End Date Nisa Starks MD [address] [place] [address] PCP - General 05/13/22 documented as of this encounter
--- OUTSIDE RECORDS SUMMARY | 2025-04-21 19:32 | XMS_ITS | Encounter Summary ---
Author Organization [facility] Address [address] [place] [address] Phone Care Team Providers Care Jawbone Puller Name Role Phone Nisa Starks MD Primary Care Provider [phone] Encounter Details Date Type Department Care Team (Late st Contact Info) Description 08/31/2022 Conversion Encounter [facility] [address] [place] [address] [address] [place] [address] Rossana Tijerina MD [address] [place] [address] [address] [place] [address] Social History Tobacco Use Types Packs/Day Years Used Date Smoking Tobacco: Never Comments:never used-aware of risks Sex and Gender Information Value Date Recorded Sex Assigned at Male 03/03/2023 6:16 PM EDT Legal Sex Male 3:44 PM EST Gender Identity Male 03/03/2023 6:16 PM EDT Sexual Orientation Straight 03/03/2023 6: 16 PM EDT documented as of this encounter Plan of Treatment Not on file documented as of this encounter Visit Diagnoses Not on filedocumented in this encounter Care Teams Jawbone Puller Relationship Specialty Start Date End Date Nisa Starks MD [address] [place] [phone] PCP - General 05/13/22 documented as of this encounter
--- OUTSIDE RECORDS SUMMARY | 2025-04-21 19:32 | XMS_ITS | Encounter Summary ---
Author Organization [facility] Address [address] [place] [address] Phone Care Team Providers Care Transit Bus Operator Name Role Phone Nisa Starks MD Primary Care Provider [phone] Encounter Details Date Type Department Care Team (Late st Contact Info) Description 08/15/2018 Immunization [facility] [place] [address] [place] [address] Family Medicine, Physician Count includes the [facility] [place] [address] Social History Tobacco Use Types Packs/Day Years [...] on filedocumented in this encounter Care Teams Transit Bus Operator Relationship Specialty Start Date End Date Nisa Starks MD [address] [place] [address] PCP - General 05/13/22 documented as of this encounter
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
--- OUTSIDE RECORDS SUMMARY | 2025-04-21 19:32 | XMS_ITS | Clinical Summary ---
Author Organization [employer] [facility] Address [address] [facility] [address] [place] [address] Care Team Providers Care Manager Education Name Role Phone Unavailable Primary Care Provider Unavailabl e Allergies Active Allergy Reactions Criticality Noted Date Comments Cefepime 02/14/2025 Bpzfpr-Vgdyn-Mdysuqpjwfdy 02/14/2025 Allergic to adhesive tape Sulfadiazine 02/14/2025 Sulfamerazine Unknown 02/14/2025 Trimethoprim Unknown 02/14/2025 Vancomycin Unknown 02/14/2025 Medications acetaminophen (Tylenol) 160 MG/5ML suspension Take 650 mg by mouth every 6 (six) hours if needed for mild pain. Active aspirin 81 MG EC tablet Take 81 mg by mouth Once per day. Active baclofen (Lioresal) 10 MG tablet Take by mouth 3 times daily. Active baclofen (Lioresal) 10 MG tablet Take by mouth 3 times daily. Active bisacodyl (Fleet Bisacodyl) 10 MG/30ML enema Insert 10 mg into the rectum 1 (one) time. Active cloBAZam 20 MG film Take 20 mg by mouth every 12 (twelve) hours. Active diazePAM (Valium) 5 mg/mL solution auto-injector injection Inject 5 mg into the muscle if needed. Active adapalene (Differin) 0.1 % cream Apply 1 Application. topically at bedtime. Active gabapentin (Neurontin) 300 MG capsule Take 300 mg by mouth 3 times daily. Active ketoconazole (NIZOral) 2 % shampoo Apply 1 Application. topically 2 (two) times a week. Active lacosamide (Vimpat) 10 mg/mL oral liquid 200 mg by Per G Tube route every 12 (twelve) hours. Active magnesium hydroxide (Milk of Magnesia) 400 MG/5ML suspension Take 30 mL by mouth at bedtime. Active polyethylene glycol, PEG, 3350 (Glycolax) 17 GM/SCOOP powder 17 g by Per G Tube route 1 (one) time. Active OXcarbazepine (Trileptal) 300 MG tablet 300 mg by Per G Tube route in the morning and 300 mg in the evening. Active white petrolatum gel Apply 1 Application. topically if needed for dry skin. Active Encounters Date Type Department Care Team Description 04/17/2025 10:30 AM EDT Office Visit [facility] [address] [place] [phone] Daphne Luther DDS 02/17/2025 Telephone [facility] [address] [place] [phone] Cher Baer DDS 02/14/2025 8:15 AM EDT Office Visit [facility] [address] [place] [phone] Cher aBer DDS from Last 3 Months Social History Tobacco Use Types Packs/Day Years Used Date Smoking Tobacco: Never Assessed Sex and Gender Information Value Date Recorded Sex Assigned at Male 02/11/2025 2:23 PM EDT Legal Sex Male 2:12 PM EDT Gender Identity Male 02/11/2025 2:24 PM EDT Sexual Orientation Don't know 02/11/2025 2: 23 PM EDT Last Filed Vital Signs Vital Sign Reading Time Taken Comments Blood Pressure - - Pulse - - Temperature - - Respiratory Rate - - Oxygen Saturation - - Inhaled Oxygen Concentration - - Weight 65.3 kg (144 lb) 04/17/2025 9:00 AM EDT Height - - Body Mass Index - - Plan of Treatment Upcoming Encounters Date Type Department Care Team (Late st Contact Info) Description 05/22/2025 10:30 AM EDT Office Visit [facility] [address] [place] [phone] Arminda Harrell DDS [address] [place] [phone] Health Maintenance Due Date Last Done Comments Chlamydia and Gonorrhea Screening 2004 Dental X-Ray: Bitewings 2004 Dental X-Ray: Full Mouth 2004 Depression Screening 2004 HIV Screening 2004 SDOH Screening 2004 Disability Screening 2004 Alcohol/Substance Use Screening 2016 Tobacco Screening 2016 Family Planning (PISQ) 10/08/2019 HPV Vaccines (1 - Male 3-dos e series) 10/08/2019 Meningococcal B Vaccine (1 o f 2 - Standard) 2020 Hepatitis C Screening 2022 DTaP/Tdap/Td Vaccines (1 - Tdap) 10/08/2023 Hepatitis B Vaccines (1 of 3 - 19+ 3-dose series) 10/08/2023 COVID-19 Vaccine (1 - 2023-2 5 season) 2025 Influenza Vaccine (#1) 2025 Dental Oral Exam 08/18/2025 02/14/2025 Dental Prophylaxis 08/18/2025 02/14/2025 Zoster Vaccines (1 of 2) 2054 RSV Patients and Pa tients Aged 60 years or older (1 - 1-dose 75+ series) 10/08/2079 HIB Vaccines Aged Out No longer eligi ble based on patient's age to complete this topic Hepatitis A Vaccines Aged Out No long er eligible based on patient's age to complete this topic IPV Vaccines Aged Out No longer eligi ble based on patient's age to complete this topic Meningococcal Vaccine Aged Out No mehnaz salomon eligible based on patient's age to complete this topic Pneumococcal Vaccine: Pediat rics (0 to 5 Years) and At-Risk Patients (6 to 49) Years Aged Out No longer eligi ble based on patient's age to complete this topic RSV under 20 months Aged Out No longe r eligible based on patient's age to complete this topic Rotavirus Vaccines Aged Out No longer eligible based on patient's age to complete this topic Procedures Procedure Name Priority Date/Time Associated Diagnosis Comments CASE PRESENTATION, DETAILED AND EXTENSIVE TREATMENT PLANNING Routine 04/17/2025 10:30 AM EDT DESENSITIZATION TREATMENT Routine 2024 10:30 AM EDT CASE PRESENTATION, DETAILED AND EXTENSIVE TREATMENT PLANNING Routine 02/14/2025 8:15 AM EDT TOPICAL APPLICATION OF FLUORIDE VARNISH Routine 02/14/2025 8:15 AM EDT ORAL HYGIENE INSTRUCTIONS Routine 2024 8:15 AM EDT PROPHYLAXIS - ADULT Routine 02/14/2025 8 :15 AM EDT COMPREHENSIVE ORAL EVALUATION - NEW OR ESTABLISHED PATIENT Routine 02/14/2025 8:15 AM EDT from Last 3 Months Insurance DENTAL - [facility] MEDICAID DDS CHILD
[2025-04-21 20:33] VITALS: BP 93/63; PULSE 78; RESP 16; TEMP 36.3; O2SAT 94
[2025-04-21 21:09] VITALS: BP 93/63; PULSE 78; RESP 16; TEMP 36.3; O2SAT 94
== END 2025-04-21 21:15 | disposition skilled nursing facility (03) ==
PROVIDERS: Emergency Provider Emergency Medicine
DX: K94.23 Gastrostomy malfunction (principal); R10.2 Pelvic and perineal pain; Z79.899 Other long term (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
CPT/HCPCS: 43762; 74019; 99283; 99284

== ENCOUNTER → 2025-04-21 18:14 | Outpatient (BNV) | payer OTHER, MEDICAID, SELFPAY | PROVIDERS: Emergency Provider Emergency Medicine; Visit Provider Student in an Organized Health Care Education/Training Program | DX: Z46.82 Encounter for fitting and adjustment of non-vascular catheter (principal) | CPT/HCPCS: 74019 ==

== ENCOUNTER 2025-05-15 20:01 | Inpatient (IN) | payer OTHER, MEDICAID, SELFPAY ==
--- NOTE | ~2025-05-15 | XR_ITS ---
CLINICAL HISTORY: SHUNT SERIES 1 view abdomen Comparison: X-ray of the abdomen from 04/21/2025 Findings: Mild left basilar atelectasis and/or scarring. No defined defect of the imaged catheter from left hemithorax with likely termination of the right hemiabdomen. Portions of the catheter obscured in the abdomen with coiling and loops. Severe stool burden noted, including cecum and distally. Partly obscured by apparent enteric contrast. No small bowel obstruction defined. Imaged rib deformities appear old/chronic. Spine and pelvis are mostly obscured. Superficial opacities noted. IMPRESSION: 1. No defined defect of the imaged catheter for PAPER SALES REPRESENTATIVE shunt. 2. Severe stool burden with enteric contrast. 3. No small bowel obstruction. This document has been electronically signed by: Freddy Chen MD on 05/15/2025 22:34:49
--- NOTE | ~2025-05-15 | CT_ITS ---
CLINICAL HISTORY: TBI hx, AMS non focal CT head without contrast Comparison: None provided Findings: No acute intracranial hemorrhages accounting for dural thickening, scarring, and multifocal calcifications. Comminution of the intra-axial extra-axial calcifications noted. Of note, encephalomalacia includes right perirolandic gyri. Hydrocephalus is nonspecific and likely mild-moderate accentuated by multifocal encephalomalacia, including frontal lobes and both temporal lobes. No significant midline shift at this time. Left posterior approach ventricular catheter noted for MEMBER CERTIFICATION MANAGER shunt. Opaque portions of the shunt catheter appear contiguous, with left superficial convexity reservoir. Bony remodeling and resorption including about right convexity craniotomy changes. Including revisions considered by imaging. No definite acute skull fracture accounting for lucencies, vessel channels, and previous catheter tracts, including left frontal bone. Mild fluid and mucosal thickening of the paranasal sinuses. Imaged mastoid air cells are well aerated. Asymmetric pneumatization of the petrous apices. IMPRESSION: 1. No acute intracranial hemorrhage. 2. Ventriculomegaly is nonspecific without comparison imaging. Combination of the mild-moderate hydrocephalus and volume loss status encephalomalacia are considered at this time. 3. Left posterior approach MEMBER CERTIFICATION MANAGER shunt catheter noted. 5. No significant midline shift. This document has been electronically signed by: Freddy Chen MD on 05/15/2025 21:58:14
--- NOTE | ~2025-05-15 | XR_ITS ---
CLINICAL HISTORY: SHUNT SERIES 1 view cervical spine Comparison: None provided Findings: Frontal radiograph is performed with partial occlusion of the cervical spine. No definite discontinuity of the partially imaged left-sided catheter for BRAZER RESISTANCE shunt. Imaged lung apices are unremarkable. Left clavicle deformity appears old/chronic in the [id number]. IMPRESSION: No defined defect of the imaged left-sided catheter for BRAZER RESISTANCE shunt. This document has been electronically signed by: Freddy Chen MD on 05/15/2025 22:26:27
--- NOTE | ~2025-05-15 | XR_ITS ---
CLINICAL HISTORY: ams, TBI pt, hypotension 1 view chest x-ray Comparison: None provided Findings: Left-sided catheter likely BROTH SETTER shunt partly obscured. Enteric contrast noted in the [id number]. Bilateral pulmonary opacities nonspecific and may reflect combination of the atelectasis/pneumonitis; left worse than right. No definite pneumothorax or pleural effusion with obscuration of the left lung base. Imaged rib deformities appear old/chronic. Borderline cardiomegaly accentuated by AP technique. Surgical clips of the left chest wall appears superficial. IMPRESSION: Mild bibasilar atelectasis/pneumonitis, left worse than right. Scarring also considered given old left-sided rib fractures. This document has been electronically signed by: Freddy Chen MD on 05/15/2025 21:05:59
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
[2025-05-15 20:15] VITALS: BP 90/53
[2025-05-15 20:17] VITALS: BP 77/41; BP 91/50; PULSE 55; PULSE 60; RESP 15; TEMP 36.8; O2SAT 97; BMI 21.9
[2025-05-15 20:20] VITALS: BP 90/55
[2025-05-15 20:30] VITALS: BP 94/61; PULSE 59; O2SAT 97
--- OUTSIDE RECORDS SUMMARY | 2025-05-15 20:38 | XMS_ITS | Encounter Summary ---
Author Organization [facility] Address [address] [place] [address] Phone Care Team Providers Care Research Librarian Name Role Phone Nisa Starks MD Primary Care Provider [phone] Encounter Details Date Type Department Care Team (Late st Contact Info) Description 08/04/2015 Documentation [facility] Family Medicine [address] [place] [address] Family Medicine, Physician [address] [place] [address] Social History Tobacco Use Types Packs/Day Years [...] on filedocumented in this encounter Care Teams Research Librarian Relationship Specialty Start Date End Date Nsia Starks MD [address] [place] [address] PCP - General 05/13/22 documented as of this encounter
--- OUTSIDE RECORDS SUMMARY | 2025-05-15 20:39 | XMS_ITS | Encounter Summary ---
Author Organization [facility] Address [address] [place] [address] Phone Care Team Providers Care Preschool Teacher'S Assistant Name Role Phone Nisa Starks MD Primary Care Provider [phone] Encounter Details Date Type Department Care Team (Late st Contact Info) Description 08/15/2018 Immunization [facility] Family Medicine [address] [place] [address] Family Medicine, Physician [facility] [place] [address] Social History Tobacco Use Types Packs/Day Years [...] on filedocumented in this encounter Care Teams Preschool Teacher'S Assistant Relationship Specialty Start Date End Date Nisa Starks MD [address] [place] [address] PCP - General 05/13/22 documented as of this encounter"
--- OUTSIDE RECORDS SUMMARY | 2025-05-15 20:39 | XMS_ITS | Encounter Summary ---
Author Organization [facility] Address [address] [place] [address] Phone Care Team Providers Care Electrotherapist Name Role Phone Nisa Starks MD Primary Care Provider [phone] Encounter Details Date Type Department Care Team (Late st Contact Info) Description 08/31/2022 Conversion Encounter [facility] [address] [place] [address] [address] [place] [address] Rossana Tijerina MD [address] [place] [address] [address] [place] [address] Social History Tobacco Use Types Packs/Day Years [...] on filedocumented in this encounter Care Teams Electrotherapist Relationship Specialty Start Date End Date Nisa Starks MD [address] [place] [id number] PCP - General 05/13/22 documented as of this encounter
--- OUTSIDE RECORDS SUMMARY | 2025-05-15 20:39 | XMS_ITS | Clinical Summary ---
Author Organization [employer] [facility] Address [address] [place] [address] Care Team Providers Care Regulatory Affairs Analyst Name Role Phone Unavailable Primary Care Provider Unavailabl e Allergies Active Allergy Reactions Criticality Noted Date Comments Cefepime 02/14/2025 [id number] 02/14/2025 Allergic to adhesive tape Sulfadiazine 02/14/2025 [...] Description 04/17/2025 10:30 AM EDT Office Visit [facility] [address] [place] [id number] Daphne Luther DDS 02/17/2025 Telephone [facility] [address] [place] [phone] Cher Baer DDS 02/14/2025 8:15 AM EDT Office Visit [facility] [address] [place] [id number] Cher Baer DDS from Last 3 Months Social History [...] Description 05/22/2025 10:30 AM EDT Office Visit [facility] [address] [place] [id number] Arminda Harrell DDS [address] [place] [id number] Health Maintenance Due Date Last Done Comments [...] from Last 3 Months Insurance DENTAL - [facility] MEDICAID DDS CHILD
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
[2025-05-15 20:45] VITALS: BP 98/54; PULSE 59; RESP 16
[2025-05-15 20:52] LABS: MANUAL DIFF FLAG NO
--- NOTE | 2025-05-15 21:15 | PC.NURSE ---
500mL NSS was meant to be a bolus dose, MD verbal.
[2025-05-15 21:36] LABS: MANUAL DIFF FLAG NO
[2025-05-15 21:37] LABS: Hematocrit 36.1 % (42.0-52.0); Hemoglobin 12.8 g/dl (14.0-18.0); Imm Gran Abs Auto 0.01 X10*3/uL (0.00-0.03); Imm Gran Pct Auto 0.1 % (0.0-0.4); Lymphocytes Absolute Auto 3.3 X10*3/uL (1.2-4.9); Mean Corpuscular HGB Conc 35.5 g/dl (31.0-36.0); Mean Corpuscular Hemoglobin 33.4 pg (27.0-33.0); Mean Corpuscular Volume 94.3 fL (80.0-98.0); NRBC Abs Auto 0.000 X10*3/uL (0.0-0.012); NRBC Pct Auto 0.0 /100WBC (0.0-0.2); Platelet Count 394 X10*3/uL (160-400); Red Blood Count 3.83 X10*6/uL (4.60-5.80); Reticulocytes Absolute 0.080 X10*6/uL (0.026-0.095); White Blood Count 10.3 X10*3/uL (4.8-10.8)
[2025-05-15 21:49] LABS: Glucose, Whole Blood 201 mg/dL (60-115)
[2025-05-15 21:49] LABS: Glucose, Whole Blood 56 mg/dL (60-115)
[2025-05-15 21:49] LABS: Glucose, Whole Blood 183 mg/dL (60-115)
[2025-05-15 21:53] LABS: Iron 23 mcg/dL (45-160); Percent Iron Saturation 11 % (15-50); Total Iron Binding Capacity 214 mcg/dL (228-428); Unsaturated Iron Binding 191 ug/dL
[2025-05-15 21:57] LABS: Anion Gap 12 (12-20); Blood Urea Nitrogen 10 mg/dL (9-16); Calcium 8.5 mg/dL (8.4-10.2); Carbon Dioxide 23 mmol/L (22-29); Chloride 98 mmol/L (96-108); Creatinine Clr Calc Pharmacy 226.3; Estimated Glomerular Filt Rate > 60; Magnesium 2.0 mg/dL (1.6-2.6); Potassium 3.7 mmol/L (3.3-5.1); Sodium 129 mmol/L (135-145)
[2025-05-15 22:24] LABS: Appearance Urine Cloudy; Glucose Urine UA 250 mg/dL (Negative); PH 7.5 (5.0-9.0); Specific Gravity - Urine 1.015 (1.005-1.025)
[2025-05-15 22:34] LABS: Cannabinoid Screen Urine Not Detected (Not Detect)
[2025-05-16] VITALS (8 sets, daily range): BP systolic 93–101; BP diastolic 38–68; PULSE 68–82; RESP 13–22; TEMP 36.5–37.2; O2SAT 95–98; BMI 21.9; BMI 22.2
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
[2025-05-16] MEDS: 0.9 % Sodium Chloride Flush 3 ML SYRINGE IVFLUSH ×2 (07:21→15:39)
--- NOTE | 2025-05-16 07:22 | PC.NURSE ---
This Rn assumed care of patient @ 0700 Patient awake Mother at bedside Right gerard in place on patient, to prevent pulling at g tube IV 22 left hand VSS and up to date Patient awaiting bed placement
[2025-05-16 07:35] LABS: Glucose, Whole Blood 83 mg/dL (60-115)
--- NOTE | 2025-05-16 09:00 | PHA.MEDREC ---
Addendum entered by Dinora Ignacio RPh 05/16/25 10:53: MED REC REVIEWED BY [facility] Original Note: Pharmacy Consult ? Medication Reconciliation Pharmacy has reviewed the medication reconciliation done by nursing. Utilized list from [facility] to confirm med list.
[2025-05-16 09:14] LABS: MANUAL DIFF FLAG NO
[2025-05-16 09:16] LABS: Hematocrit 37.1 % (42.0-52.0); Hemoglobin 13.1 g/dl (14.0-18.0); Imm Gran Abs Auto 0.02 X10*3/uL (0.00-0.03); Imm Gran Pct Auto 0.3 % (0.0-0.4); Lymphocytes Absolute Auto 2.0 X10*3/uL (1.2-4.9); Mean Corpuscular HGB Conc 35.3 g/dl (31.0-36.0); Mean Corpuscular Hemoglobin 33.2 pg (27.0-33.0); Mean Corpuscular Volume 94.2 fL (80.0-98.0); NRBC Abs Auto 0.000 X10*3/uL (0.0-0.012); NRBC Pct Auto 0.0 /100WBC (0.0-0.2); Platelet Count 311 X10*3/uL (160-400); Red Blood Count 3.94 X10*6/uL (4.60-5.80); White Blood Count 7.8 X10*3/uL (4.8-10.8)
--- NOTE | 2025-05-16 09:31 | PC.NURSE ---
Patient noted to be incontinent of urine Patient unable to communicate needs [place] cath placed on patient Patient tolerated cath placement Mom remains at bedside
[2025-05-16 09:49] LABS: Alanine Aminotransferase 18 U/L (0-40); Albumin Level 4.0 g/dL (3.5-5.0); Alkaline Phosphatase 133 U/L (39-117); Anion Gap 11 (12-20); Aspartate Amino Transferase 18 U/L (5-37); Blood Urea Nitrogen 8 mg/dL (9-16); Calcium 8.8 mg/dL (8.4-10.2); Carbon Dioxide 24 mmol/L (22-29); Chloride 99 mmol/L (96-108); Creatinine Clr Calc Pharmacy 217.3; Estimated Glomerular Filt Rate > 60; Potassium 4.9 mmol/L (3.3-5.1); Sodium 129 mmol/L (135-145); Total Protein 6.6 g/dL (6.5-8.0)
--- NOTE | 2025-05-16 09:54 | MHC.CM.PN ---
CM met with Patient and his Mother/Guardian/Frances at bedside, in the ED. Patient will return to [facility] at time of dc, via BLS; CM has initiated and will follow for dc planning.PCP is Dr. Nisa Starks.
--- NOTE | 2025-05-16 10:21 | MHC.CLN ---
CONSULT PT IS NONVERBAL AND UNRESPONSIVE PT HAS PEG TUBE; PULLED OUT X4 OVER LAST 4 DAYS AND REPLACED AT [facility] PT WITH RIGHT MITT ON HAND TO PREVENT PULLING OUT TUBE PT USES LIQUID HOPE TUBE FEEDING BROUGHT IN WITH FAMILY FOR TUBE FEEDING ORDER LIQUID HOPE (12OZ PACK EACH) TF BOLUS QID GIVEN AT 8AM, 12PM, 4PM AND 8PM WITH 300ML FREE WATER FLUSHES Q 6 HRS TO PROVIDE 1728KCALS (25KCALS/KG), 86G PROTEIN (1.2G/KG), 1912ML TOTAL WATER FROM FORMULA AND FLUSHES (27ML/KG) MONITOR TOLERANCE AND LYTES; FOLLOW SERUM NA CLOSELY SEE FULL CLINICAL NUTRITION ASSESSMENT DATED 05/16/25
[2025-05-16 10:58] LABS: Osmolality, Serum 265 mosm/kg (281-305)
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
[2025-05-16] MEDS: GABAPENTIN 250 MG/5 ML 600 EACH G-TUBE (20:35)
[2025-05-16] MEDS: Lacosamide Oral Solution 100 MG/10 ML SOLUTION 200 MG G-TUBE (20:53)
[2025-05-16 21:55] LABS: Glucose, Whole Blood 80 mg/dL (60-115)
[2025-05-16 23:07] LABS: Glucose, Whole Blood 84 mg/dL (60-115)
[2025-05-17] MEDS: 0.9 % Sodium Chloride Flush 3 ML SYRINGE IVFLUSH (01:18)
[2025-05-17 03:56] VITALS: BP 95/53; PULSE 64; RESP 18; TEMP 36.5; O2SAT 96
[2025-05-17 06:01] LABS: Glucose, Whole Blood 80 mg/dL (60-115)
[2025-05-17 07:45] VITALS: BP 102/55; PULSE 74; RESP 18; TEMP 36.6; O2SAT 99
[2025-05-17 07:55] LABS: Glucose, Whole Blood 61 mg/dL (60-115)
[2025-05-17] MEDS: GABAPENTIN 250 MG/5 ML 600 EACH G-TUBE ×3 (08:18→20:07)
[2025-05-17 09:39] LABS: Osmolality, Serum 275 mosm/kg (281-305)
[2025-05-17 09:51] LABS: Anion Gap 16 (12-20); Blood Urea Nitrogen 9 mg/dL (9-16); Calcium 9.4 mg/dL (8.4-10.2); Carbon Dioxide 22 mmol/L (22-29); Chloride 100 mmol/L (96-108); Creatinine Clr Calc Pharmacy 230.2; Estimated Glomerular Filt Rate > 60; Potassium 4.9 mmol/L (3.3-5.1); Sodium 133 mmol/L (135-145)
[2025-05-17] MEDS: Lacosamide Oral Solution 100 MG/10 ML SOLUTION 200 MG G-TUBE ×2 (09:57→20:08)
[2025-05-17 11:35] VITALS: BP 107/58; PULSE 72; RESP 18; TEMP 36.6; O2SAT 98
[2025-05-17 11:57] LABS: Glucose, Whole Blood 79 mg/dL (60-115)
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
[2025-05-17 15:16] VITALS: BP 93/48; PULSE 62; RESP 18; TEMP 37; O2SAT 98
[2025-05-17 16:12] LABS: Glucose, Whole Blood 84 mg/dL (60-115)
[2025-05-17 19:33] VITALS: BP 92/64; PULSE 77; RESP 18; TEMP 36.7; O2SAT 96
[2025-05-17 20:05] LABS: Glucose, Whole Blood 79 mg/dL (60-115)
[2025-05-17 23:51] VITALS: BP 88/49; PULSE 61; O2SAT 93
[2025-05-18] LABS: Glucose, Whole Blood 85 mg/dL (60-115)
[2025-05-18] MEDS: 0.9 % Sodium Chloride Flush 3 ML SYRINGE IVFLUSH (00:09)
--- NOTE | 2025-05-18 00:24 | PC.NURSE ---
05/17/25 Nursing Note [id number]. Patient's mother at bedside, reports son appears to be back at baseline mentation and would like to give her son the next schedule tube feeding bolus at 1999 with scheduled medications. Per Nursing communication order, providers have granted permission for mother to administer patient's own tube feed as patient receives bolus feeds 4x day with none given overnight.. IVF's completed as ordered and patient POC 79 prior to receiving nutrition. Patient linens and gown changed and personal care provided. Camera provided in the room as patient's mom requested as she went home to sleep for the night. Seizure precautions in place, Assessment as documented and report provided to oncalana Castano RN.
[2025-05-18 00:39] VITALS: BP 96/53; PULSE 57
[2025-05-18 02:19] VITALS: BP 104/51; PULSE 53
[2025-05-18 04:00] VITALS: BP 91/46; PULSE 65; RESP 18; TEMP 37.2; O2SAT 96
[2025-05-18 06:59] LABS: Glucose, Whole Blood 75 mg/dL (60-115)
[2025-05-18 07:39] VITALS: PULSE 64; RESP 18; TEMP 36.7
[2025-05-18] MEDS: Lacosamide Oral Solution 100 MG/10 ML SOLUTION 200 MG G-TUBE (09:07)
[2025-05-18 09:22] LABS: Anion Gap 14 (12-20); Blood Urea Nitrogen 7 mg/dL (9-16); Calcium 9.1 mg/dL (8.4-10.2); Carbon Dioxide 24 mmol/L (22-29); Chloride 100 mmol/L (96-108); Creatinine Clr Calc Pharmacy 235.1; Estimated Glomerular Filt Rate > 60; Potassium 4.6 mmol/L (3.3-5.1); Sodium 133 mmol/L (135-145)
[2025-05-18] MEDS: GABAPENTIN 250 MG/5 ML 600 EACH G-TUBE ×2 (10:38→15:26)
[2025-05-18 10:55] VITALS: BP 96/53; PULSE 83; RESP 18; TEMP 36.8; O2SAT 95
[2025-05-18 10:58] LABS: Glucose, Whole Blood 77 mg/dL (60-115)
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
--- NOTE | 2025-05-18 15:27 | MHC.CM.PN ---
PT MEDICALLY CLEARED TO DC BACK TO [facility] CM SPOKE TO RN SALES ARCHITECT AT [facility], UPDATES WERE FAXED SHE DOES NOT HAVE ACCESS TO [facility] SHE REQUESTED PT RETURN BEFORE 1700 HOURS SO SHE CAN COMPLETE THE ADMISSION DURING HER SHIFT BLS TRANSPORT BOOKED WITH [facility] FOR 1600 HOURS PTS MOTHER INFORMED AT BEDSIDE
[2025-05-18 16:00] VITALS: BP 94/52; PULSE 73; RESP 18; TEMP 36.7; O2SAT 96
== END 2025-05-18 16:29 | DRG 394 ==
LOC: HO.ED 05-16 00:44 → HO.EDOVER 05-16 01:14 → HO.IMC 05-16 20:04
PROVIDERS: Emergency Medicine; Nurse Practitioner Family; Admitting Provider Internal Medicine; Emergency Provider Emergency Medicine; Visit Provider Hospitalist
DX: K94.23 Gastrostomy malfunction (principal); E22.2 Syndrome of inappropriate secretion of antidiuretic hormone; G91.9 Hydrocephalus, unspecified; S06.9XAS Unspecified intracranial injury with loss of consciousness status unknown, sequela; V89.2XXS Person injured in unspecified motor-vehicle accident, traffic, sequela; E86.1 Hypovolemia; J98.4 Other disorders of lung; G40.909 Epilepsy, unspecified, not intractable, without status epilepticus; K59.00 Constipation, unspecified; W06.XXXA Fall from bed, initial encounter; Z98.2 Presence of cerebrospinal fluid drainage device; E16.2 Hypoglycemia, unspecified; Z74.01 Bed confinement status; Z79.82 Long term (current) use of aspirin; Z79.899 Other long term (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
CPT/HCPCS: 36415; 70450; 71045; 72020; 74018; 80048; 80053; 80235; 80307; 80339; 81003; 82550; 82947; 83540; 83605; 83615; 83735; 83930; 83935; 84300; 84443; 85025; 85045; 86850; 86900; 86901; 87040; 99285; J1650; J1956

== ENCOUNTER → 2025-05-15 20:09 | Outpatient (BNV) | payer OTHER, MEDICAID, SELFPAY | PROVIDERS: Emergency Provider Emergency Medicine; Visit Provider Radiology Neuroradiology | DX: I95.9 Hypotension, unspecified (principal); Z45.41 Encounter for adjustment and management of cerebrospinal fluid drainage device; R41.82 Altered mental status, unspecified; Z87.820 Personal history of traumatic brain injury | CPT/HCPCS: 70450; 71045; 72020; 74018 ==

== ENCOUNTER → 2025-05-16 01:09 | Outpatient (BNV) | payer OTHER, MEDICAID, SELFPAY | PROVIDERS: Admitting Provider Internal Medicine; Emergency Provider Emergency Medicine; Visit Provider Psychiatry & Neurology Neurology | DX: R40.0 Somnolence (principal) | CPT/HCPCS: 99222 ==

== ENCOUNTER → 2025-05-16 01:09 | Outpatient (BNV) | payer OTHER, MEDICAID, SELFPAY | PROVIDERS: Admitting Provider Internal Medicine; Emergency Provider Emergency Medicine; Visit Provider Nurse Practitioner Family | DX: E16.2 Hypoglycemia, unspecified (principal); Z78.9 Other specified health status; E87.1 Hypo-osmolality and hyponatremia; Z93.1 Gastrostomy status; K59.00 Constipation, unspecified; R32 Unspecified urinary incontinence; R15.9 Full incontinence of feces; D50.9 Iron deficiency anemia, unspecified; R40.0 Somnolence; Z98.2 Presence of cerebrospinal fluid drainage device; S06.9XAA Unspecified intracranial injury with loss of consciousness status unknown, initial encounter; R56.9 Unspecified convulsions; R47.01 Aphasia | CPT/HCPCS: 99223; 99233; 99239 ==

== ENCOUNTER 2025-06-17 11:43 | Emergency (ER) | payer OTHER, MEDICAID, SELFPAY ==
--- NOTE | ~2025-06-17 | XR_ITS ---
EXAMINATION: XR CHEST CLINICAL INFORMATION: vp strategy shunt eval COMPARISON: Previous chest x-ray April 2025 TECHNIQUE: Frontal view of the chest was obtained. FINDINGS: CHIEF ULTRASOUND TECHNOLOGIST shunt catheter ejects over the the left neck and left and midline chest. This appears similar to prior chest x-ray and intact. Lungs are clear. Cardiac and mediastinal contours are stable. No pleural effusion or pneumothorax. Old left rib fractures. Surgical clip in the left lateral chest wall. Curvature of the lower thoracic spine to the left. XR/XR chest 1V IMPRESSION: Intact appearing CHIEF ULTRASOUND TECHNOLOGIST shunt catheter. Electronically signed by: Kinsey Pimentel MD 06/17/2025 02:05 PM JEANINE
--- NOTE | ~2025-06-17 | XR_ITS ---
EXAMINATION: XR SOFT TISSUE NECK CLINICAL INDICATION: JOCKEY AGENT shunt eval COMPARISON: Head CT and cervical spine x-ray April 2025 TECHNIQUE: 2 views of the soft tissue neck were obtained. FINDINGS: JOCKEY AGENT shunt catheter in the left neck. Catheter appears intact and unchanged from prior exams. No bone or soft tissue abnormality. XR/XR soft tissue neck IMPRESSION: Intact JOCKEY AGENT shunt catheter. Electronically signed by: Kinsey Pimentel MD 06/17/2025 02:09 PM JEANINE
--- NOTE | ~2025-06-17 | XR_ITS ---
EXAMINATION: XR ABDOMEN KUB CLINICAL INDICATION: group marketing vp shunt eval COMPARISON: Previous KUB April 2025 TECHNIQUE: AP view of the abdomen. FINDINGS: PRESSER HAND shunt catheter in the right abdomen with tip coiled in the central pelvis. The PRESSER HAND shunt catheter is intact. Question G-tube projecting over the stomach new from prior exam. Increased stool in the colon and constipation. No free air. No suspicious calcifications. Mild curvature of the lumbar sacral spine to the right. XR/XR KUB IMPRESSION: Intact PRESSER HAND shunt catheter. Electronically signed by: Kinsey Pimentel MD 06/17/2025 02:07 PM EST
--- NOTE | 2025-06-17 11:50 | ECG_ITS ---
Test Reason : SEIZURE Blood Pressure : */* mmHG Vent. Rate : 77 BPM Atrial Rate : 77 BPM P-R Int : 164 ms QRS Dur : 94 ms QT Int : 370 ms P-R-T Axes : 57 35 40 degrees QTcB Int : 418 ms Normal sinus rhythm Incomplete right bundle branch block Borderline ECG No previous ECGs available Referred By: Shandra Trimble Electronically Signed By: DESEAN SCALES
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
[2025-06-17 11:56] VITALS: BP 73/68; PULSE 90; O2SAT 97
[2025-06-17 11:57] VITALS: BP 117/64; PULSE 77; RESP 18; TEMP 37.2; O2SAT 98; BMI 19.2
[2025-06-17 12:22] LABS: MANUAL DIFF FLAG NO
[2025-06-17 12:34] LABS: Hematocrit 41.8 % (42.0-52.0); Hemoglobin 14.4 g/dl (14.0-18.0); Imm Gran Abs Auto 0.02 X10*3/uL (0.00-0.03); Imm Gran Pct Auto 0.2 % (0.0-0.4); Lymphocytes Absolute Auto 2.4 X10*3/uL (1.2-4.9); Mean Corpuscular HGB Conc 34.4 g/dl (31.0-36.0); Mean Corpuscular Hemoglobin 33.4 pg (27.0-33.0); Mean Corpuscular Volume 97.0 fL (80.0-98.0); NRBC Abs Auto 0.000 X10*3/uL (0.0-0.012); NRBC Pct Auto 0.0 /100WBC (0.0-0.2); Platelet Count 371 X10*3/uL (160-400); Red Blood Count 4.31 X10*6/uL (4.60-5.80); White Blood Count 8.9 X10*3/uL (4.8-10.8)
[2025-06-17 12:49] LABS: Alanine Aminotransferase 23 U/L (0-40); Albumin Level 4.4 g/dL (3.5-5.0); Alkaline Phosphatase 135 U/L (39-117); Anion Gap 12 (12-20); Aspartate Amino Transferase 21 U/L (5-37); Blood Urea Nitrogen 10 mg/dL (9-16); Calcium 9.4 mg/dL (8.4-10.2); Carbon Dioxide 24 mmol/L (22-29); Chloride 101 mmol/L (96-108); Creatinine Clr Calc Pharmacy 185.4; Estimated Glomerular Filt Rate > 60; Potassium 4.7 mmol/L (3.3-5.1); Sodium 132 mmol/L (135-145); Total Protein 7.3 g/dL (6.5-8.0)
[2025-06-17 13:00] LABS: Resp Syncy Virus RNA Qual PCR NEGATIVE (Negative); SARS COV2 PCR INHOUSE NEGATIVE (Negative)
[2025-06-17 13:27] LABS: Glucose, Whole Blood 95 mg/dL (60-115)
[2025-06-17 13:37] LABS: Appearance Urine Cloudy; Glucose Urine UA Negative (Negative); PH 8.5 (5.0-9.0); Specific Gravity - Urine 1.010 (1.005-1.025); UMIC TRIGGER UACC YES
[2025-06-17 14:13] LABS: Other Crystals Urine Present
--- NOTE | 2025-06-17 17:56 | PC.NURSE ---
IV removed, report given to ems, Mom given copy of discharge paperwork
[2025-06-17 17:57] VITALS: BP 117/64; PULSE 77; RESP 18; TEMP 37.2; O2SAT 98
--- NOTE | 2025-06-17 17:59 | PC.NURSE ---
Report given to NICK Perez at [facility], mom aware of transfer
== END 2025-06-17 17:59 | disposition home or self-care (01) ==
PROVIDERS: Registered Nurse Emergency; Emergency Provider Emergency Medicine; PCP Hospitalist
DX: R56.9 Unspecified convulsions (principal); Z93.1 Gastrostomy status; Z87.820 Personal history of traumatic brain injury; Z98.2 Presence of cerebrospinal fluid drainage device; Z03.818 Encounter for observation for suspected exposure to other biological agents ruled out; Z88.1 Allergy status to other antibiotic agents; Z88.2 Allergy status to sulfonamides; Z88.8 Allergy status to other drugs, medicaments and biological substances
CPT/HCPCS: 36415; 51701; 70360; 71045; 74018; 80053; 81001; 82947; 83605; 85025; 87637; 93005; 99283; 99284

== ENCOUNTER → 2025-06-17 11:50 | Outpatient (BNV) | payer OTHER, MEDICAID, SELFPAY | PROVIDERS: Emergency Provider Emergency Medicine; PCP Hospitalist; Visit Provider Internal Medicine | DX: I45.10 Unspecified right bundle-branch block (principal) | CPT/HCPCS: 93010 ==

== ENCOUNTER → 2025-06-17 11:55 | Outpatient (BNV) | payer OTHER, MEDICAID, SELFPAY | PROVIDERS: Emergency Provider Emergency Medicine; PCP Hospitalist; Visit Provider Radiology Diagnostic Radiology | DX: Z98.2 Presence of cerebrospinal fluid drainage device (principal) | CPT/HCPCS: 70360; 71045; 74018 ==

== ENCOUNTER 2025-07-23 13:53 | Outpatient (AMB) | payer OTHER, MEDICAID, SELFPAY ==
--- OUTSIDE RECORDS SUMMARY | 2025-07-23 13:55 | XMS_ITS | Encounter Summary ---
Author Organization [facility] Address [address] [place] [address] Care Team Providers Care Used Car Sales Supervisor Name Role Phone Konrad Ivy MD Primary Care Provider [phone] Encounter Details Date Type Department Care Team (Late st Contact Info) Description 03/05/2025 Lab Requisition [facility] - Main Lab 299 [facility] [place] [address] Kornad Ivy MD [address] [place] [address] Dr [address] [place] Diffuse traumatic brain injury with loss of [...] LAB CHEMISTRY METHOD 03/05/2025 8:14 AM T [facility] Potassium 4.8 3.5 - 5.5 mmol/L LAB CHEMISTRY METHOD 03/05/2025 8:14 AM EDT [facility] Comment:Hemolysis present Chloride 98 96 - 110 mmol/L LAB CHEMISTRY METHOD 03/05/2025 8:14 AM [facility] CO2 27 21 - 32 mmol/L LAB CHEMISTRY METHOD 03/05/2025 8:14 AM [facility] Anion Gap 4 3 - 11 LAB CHEMISTRY METHOD 03/05/2025 8:14 AM [facility] Glucose 72 70 - 100 mg/dL LAB CHEMISTRY METHOD 03/05/2025 8:14 AM [facility] BUN 10 5 - 25 mg/dL LAB CHEMISTRY METHOD 03/05/2025 8:14 AM [facility] Creatinine 0.55(L) 0.70 - 1.30 mg/dL LAB CHEMISTRY METHOD 03/05/2025 8:14 AM [facility] eGFR 145 >=60 mL/min/1. 73m2 LAB CHEMISTRY METHOD 03/05/2025 8:14 AM [facility] Comment:Calculation based on the Chronic Kidney Disease Epidemiology Collaboration (CKD-EPI) equation refit without adjustment for race. BUN/Creatinine Ratio 18.2 LAB CHEMISTRY METHOD 03/05/2025 8:14 AM [facility] Calcium 9.4 8.5 - 10.5 mg/dL LAB CHEMISTRY METHOD 03/05/2025 8:14 AM [facility] AST (SGOT) 16 10 - 42 unit/L LAB CHEMISTRY METHOD 03/05/2025 8:14 AM [facility] Comment:Hemolysis present ALT (SGPT) 28 10 - 60 unit/L LAB CHEMISTRY METHOD 03/05/2025 8:14 AM [facility] Alkaline Phosphatase 142(H) 42 - 121 unit/L LAB CHEMISTRY METHOD 03/05/2025 8:14 AM [facility] Total Protein 6.6 6.0 - 8.0 g/dL LAB CHEMISTRY METHOD 03/05/2025 8:14 AM [facility] Albumin 3.8 3.2 - 5.0 g/dL LAB CHEMISTRY METHOD 03/05/2025 8:14 AM EDT [facility] Total Bilirubin 0.2 0.0 - 1.4 mg/dL LAB CHEMISTRY METHOD 03/05/2025 8:14 AM EDT [facility] Blood Venous blood specimen / Unknown 03/05/2025 6:48 AM EDT 03/05/2025 7:37 AM EDT us Konrad Ivy MD LAB BLOOD ORDERABLES Final Resul t [facility] [address] [place] [address], documented in this encounter Visit Diagnoses Diagnosis Diffuse traumatic brain injury with loss of consciousness of unspecified duration, sequela (CMS/HCC V24) documented in this encounter Care Teams Used Car Sales Supervisor Relationship Specialty Start Date End Date Konrad Ivy MD [address] [place] [address] Dr [address] [place], [place] PCP - General Internal Medicine 12/03/24 documented as of this encounter
--- OUTSIDE RECORDS SUMMARY | 2025-07-23 13:56 | XMS_ITS | Encounter Summary ---
[facility] Organization [facility] Address [address] [place] [address] Care Team Providers Care Primary Therapist Name Role Phone Konrad Ivy MD Primary Care Provider [phone] Encounter Details Date Type Department Care Team (Late st Contact Info) Description 05/30/2025 Lab Requisition [facility] - Main Lab 299 [facility] [place] [address] Konrad Ivy MD [address] [place] [address] Dr [address] [place], [place] Hypo-osmolality and hyponatremia Social History Tobacco Use [...] Associated Diagnosis Comments COMPREHENSIVE METABOLIC PANEL Routine 05/30/2025 6:50 AM EDT Hypo-osmolality and hyponatremia documented in this encounter Results * (ABNORMAL) Comprehensive metabolic panel (05/30/2025 6:50 AM EDT) Sodium 133 133 - 145 mmol/L LAB CHEMISTRY METHOD 05/30/2025 8:21 AM EDT [facility] Potassium 4.6 3.5 - 5.5 mmol/L LAB CHEMISTRY METHOD 05/30/2025 8:21 AM EDT [facility] Chloride 97 96 - 110 mmol/L LAB CHEMISTRY METHOD 05/30/2025 8:21 AM EDT [facility] CO2 31 21 - 32 mmol/L LAB CHEMISTRY METHOD 05/30/2025 8:21 AM EDT [facility] Anion Gap 5 3 - 11 LAB CHEMISTRY METHOD 05/30/2025 8:21 AM [facility] Glucose 84 70 - 100 mg/dL LAB CHEMISTRY METHOD 05/30/2025 8:21 AM [facility] BUN 12 5 - 25 mg/dL LAB CHEMISTRY METHOD 05/30/2025 8:21 AM [facility] Creatinine 0.50(L) 0.70 - 1.30 mg/dL LAB CHEMISTRY METHOD 05/30/2025 8:21 AM [facility] eGFR 150 >=60 mL/min/1. 73m2 LAB CHEMISTRY METHOD 05/30/2025 8:21 AM [facility] Comment:Calculation based on the Chronic Kidney Disease Epidemiology Collaboration (CKD-EPI) equation refit without adjustment for race. BUN/Creatinine Ratio 24.0 LAB CHEMISTRY METHOD 05/30/2025 8:21 AM [facility] Calcium 9.3 8.5 - 10.5 mg/dL LAB CHEMISTRY METHOD 05/30/2025 8:21 AM [facility] AST (SGOT) 14 10 - 42 unit/L LAB CHEMISTRY METHOD 05/30/2025 8:21 AM [facility] ALT (SGPT) 31 10 - 60 unit/L LAB CHEMISTRY METHOD 05/30/2025 8:21 AM [facility] Alkaline Phosphatase 150(H) 42 - 121 unit/L LAB CHEMISTRY METHOD 05/30/2025 8:21 AM [facility] Total Protein 7.1 6.0 - 8.0 g/dL LAB CHEMISTRY METHOD 05/30/2025 8:21 AM [facility] Albumin 3.6 3.2 - 5.0 g/dL LAB CHEMISTRY METHOD 05/30/2025 8:21 AM [facility] Total Bilirubin 0.2 0.0 - 1.4 mg/dL LAB CHEMISTRY METHOD 05/30/2025 8:21 AM EDT [facility] Blood Venous blood specimen / Unknown 05/30/2025 6:50 AM EDT 05/30/2025 7:19 AM EDT us Konrad Ivy MD LAB BLOOD ORDERABLES Final Resul t [facility] [address] [place] [address], documented in this encounter Visit Diagnoses Diagnosis Hypo-osmolality and hyponatremia documented in this encounter Care Teams Primary Therapist Relationship Specialty Start Date End Date Konrad Ivy MD [address] [place] [address] Dr [address] [place], [place] PCP - General Internal Medicine 12/03/24 documented as of this encounter
--- OUTSIDE RECORDS SUMMARY | 2025-07-23 13:56 | XMS_ITS | Encounter Summary ---
Author Organization [facility] Address [address] [place] [address] Care Team Providers Care Railroad Signal Operator Name Role Phone Konrad Ivy MD Primary Care Provider [phone] Encounter Details Date Type Department Care Team (Late st Contact Info) Description 07/08/2025 Lab Requisition [facility] - Main Lab 299 [facility] [place] [address] Konrad Ivy MD [address] [place] [address] [address] [place] Hypo-osmolality and hyponatremia; Epilepsy, unspecified, not intractable, without status epilepticus (CMS/HCC V24, CMS/[facility] V28) Social History Tobacco Use Types Packs/Day [...] Associated Diagnosis Comments COMPREHENSIVE METABOLIC PANEL Routine 07/08/2025 6:23 AM EST Hypo-osmolality and hyponatremia Epilepsy, unspecified, not intractable, without status epilepticus (CMS/[facility] V24, CMS/[facility] V28) documented in this encounter Results * (ABNORMAL) Comprehensive metabolic panel (07/08/2025 6:23 AM EST) Sodium 141 133 - 145 mmol/L 07/08/2025 8:24 AM EST [facility] Potassium 4.2 3.5 - 5.5 mmol/L 07/08/2025 8:24 AM EST [facility] Chloride 103 96 - 110 mmol/L 07/08/2025 8:24 AM [facility] CO2 28 21 - 32 mmol/L 07/08/2025 8:24 AM [facility] Anion Gap 10 3 - 11 07/08/2025 8:24 AM [facility] Glucose 74 70 - 100 mg/dL 07/08/2025 8:24 AM [facility] BUN 14 5 - 25 mg/dL 07/08/2025 8:24 AM [facility] Creatinine 0.70 0.70 - 1.30 mg/dL 07/08/2025 8:24 AM [facility] eGFR 135 >=60 mL/min/1. 73m2 07/08/2025 8:24 AM [facility] Comment:Calculation based on the Chronic Kidney Disease Epidemiology Collaboration (CKD-EPI) equation refit without adjustment for race. BUN/Creatinine Ratio 20.0 07/08/2025 8:24 AM [facility] Calcium 9.3 8.5 - 10.5 mg/dL 07/08/2025 8:24 AM [facility] AST (SGOT) 15 10 - 42 unit/L 07/08/2025 8:24 AM [facility] ALT (SGPT) 19 10 - 60 unit/L 07/08/2025 8:24 AM [facility] Alkaline Phosphatase 136(H) 42 - 121 unit/L 07/08/2025 8:24 AM [facility] Total Protein 7.0 6.0 - 8.0 g/dL 07/08/2025 8:24 AM [facility] Albumin 4.3 3.2 - 5.0 g/dL 07/08/2025 8:24 AM [facility] Total Bilirubin 0.4 0.0 - 1.4 mg/dL 07/08/2025 8:24 AM EST [facility] Blood Venous blood specimen / Unknown 07/08/2025 6:23 AM EST 07/08/2025 7:02 AM EST us Konrad Ivy MD LAB BLOOD ORDERABLES Final Resul t [facility] [address] [place] [address], documented in this encounter Visit Diagnoses Diagnosis Hypo-osmolality and hyponatremia Epilepsy, unspecified, not intractable, without status epilepticus (CMS/HCC V24, CMS/HCC V28) documented in this encounter Care Teams Railroad Signal Operator Relationship Specialty Start Date End Date Konrad Ivy MD [address] [place] [address] Dr [address] [place], [place] PCP - General Internal Medicine 12/03/24 documented as of this encounter
--- OUTSIDE RECORDS SUMMARY | 2025-07-23 13:56 | XMS_ITS | Encounter Summary ---
[facility] Address [address] [place] [address] Care Team Providers Care Construction Plant Operator Name Role Phone Konrad Ivy MD Primary Care Provider [phone] Encounter Details Date Type Department Care Team (Late st Contact Info) Description 05/21/2025 Lab Requisition [facility] - Main Lab 299 [facility] [place] [address] Konrad Ivy MD [address] [place] [address] Dr [address] [place], [place] Other disorders of electrolyte and fluid balance, not elsewhere classified Social History Tobacco Use Types Packs/Day Years [...] Associated Diagnosis Comments COMPREHENSIVE METABOLIC PANEL Routine 05/21/2025 7:05 AM EDT Other disorders of electrolyte and fluid balance, not elsewhere classified documented in this encounter Results * (ABNORMAL) Comprehensive metabolic panel (05/21/2025 7:05 AM EDT) Sodium 130(L) 133 - 145 mmol/L LAB CHEMISTRY METHOD 05/21/2025 10:12 AM EDT [facility] Potassium 4.9 3.5 - 5.5 mmol/L LAB CHEMISTRY METHOD 05/21/2025 10:12 AM T [facility] Chloride 94(L) 96 - 110 mmol/L LAB CHEMISTRY METHOD 05/21/2025 10:12 AM [facility] CO2 31 21 - 32 mmol/L LAB CHEMISTRY METHOD 05/21/2025 10:12 AM [facility] Anion Gap 5 3 - 11 LAB CHEMISTRY METHOD 05/21/2025 10:12 AM [facility] Glucose 84 70 - 100 mg/dL LAB CHEMISTRY METHOD 05/21/2025 10:12 AM [facility] BUN 8 5 - 25 mg/dL LAB CHEMISTRY METHOD 05/21/2025 10:12 AM [facility] Creatinine 0.52(L) 0.70 - 1.30 mg/dL LAB CHEMISTRY METHOD 05/21/2025 10:12 AM [facility] eGFR 148 >=60 mL/min/1. 73m2 LAB CHEMISTRY METHOD 05/21/2025 10:12 AM [facility] Comment:Calculation based on the Chronic Kidney Disease Epidemiology Collaboration (CKD-EPI) equation refit without adjustment for race. BUN/Creatinine Ratio 15.4 LAB CHEMISTRY METHOD 05/21/2025 10:12 AM [facility] Calcium 9.5 8.5 - 10.5 mg/dL LAB CHEMISTRY METHOD 05/21/2025 10:12 AM [facility] AST (SGOT) 13 10 - 42 unit/L LAB CHEMISTRY METHOD 05/21/2025 10:12 AM [facility] ALT (SGPT) 25 10 - 60 unit/L LAB CHEMISTRY METHOD 05/21/2025 10:12 AM [facility] Alkaline Phosphatase 150(H) 42 - 121 unit/L LAB CHEMISTRY METHOD 05/21/2025 10:12 AM [facility] Total Protein 7.2 6.0 - 8.0 g/dL LAB CHEMISTRY METHOD 05/21/2025 10:12 AM [facility] Albumin 3.8 3.2 - 5.0 g/dL LAB CHEMISTRY METHOD 05/21/2025 10:12 AM [facility] Total Bilirubin 0.5 0.0 - 1.4 mg/dL LAB CHEMISTRY METHOD 05/21/2025 10:12 AM EDT [facility] Blood Venous blood specimen / Unknown 05/21/2025 7:05 AM EDT 05/21/2025 7:39 AM EDT us Konrad Ivy MD LAB BLOOD ORDERABLES Final Resul t [facility] [address] [place] [address], [place] [phone] documented in this encounter Visit Diagnoses Diagnosis Other disorders of electrolyte and fluid balance, not elsewhere classified documented in this encounter Care Teams Construction Plant Operator Relationship Specialty Start Date End Date Konrad Ivy MD [address] [place] [address] Dr [address] [place] PCP - General Internal Medicine 12/03/24 documented as of this encounter
--- OUTSIDE RECORDS SUMMARY | 2025-07-23 13:56 | XMS_ITS | Encounter Summary ---
Author Organization [facility] Address [address] [place] [address] Care Team Providers Care Cartoonist Special Effects Name Role Phone Konrad Ivy MD Primary Care Provider [phone] Encounter Details Date Type Department Care Team (Late st Contact Info) Description 06/11/[address] [facility] - Main Lab 299 [facility] [place] [address] Konrad Ivy MD [address] [place] [address] Dr [address] [place] Epilepsy, unspecified, not intractable, without status epilepticus (CMS/HCC V24, CMS/HCC V28); Other seizures (CMS/HCC V24, CMS/HCC V28); [facility] 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 Social History Tobacco Use [...] Associated Diagnosis Comments CLOBAZAM AND METABOLITE Routine 06/11/2025 7:05 AM EST Epilepsy, unspecified, not intractable, without status epilepticus (CMS/HCC V24, CMS/HCC V28) Other seizures (CMS/HCC V24, CMS/HCC V28) Other 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 counterman (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 LACOSAMIDE, SERUM OR PLASMA Routine 06/11/2025 7:05 AM EST Epilepsy, unspecified, not intractable, without status epilepticus (CMS/HCC V24, CMS/HCC V28) Other seizures (CMS/HCC V24, CMS/HCC V28) [place] 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 LAVENDER - EDTA Routine 06/11/2025 7:05 AM EST Epilepsy, unspecified, not intractable, without status epilepticus (CMS/HCC V24, CMS/HCC V28) Other seizures (CMS/HCC V24, CMS/HCC V28) Other parts counterman (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 OXCARBAZEPINE LEVEL Routine 06/11/2025 7 :05 AM EST Epilepsy, unspecified, not intractable, without status epilepticus (CMS/HCC V24, CMS/HCC V28) Other seizures (CMS/HCC V24, CMS/HCC V28) Other parts counterman (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 COMPREHENSIVE METABOLIC PANEL Routine 06/11/2025 7:05 AM EST Epilepsy, unspecified, not intractable, without status epilepticus (CMS/HCC V24, CMS/HCC V28) Other seizures (CMS/HCC V24, CMS/HCC V28) Other [place] [facility] (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 documented in this encounter Results * Lavender tube (06/11/2025 7:05 AM EST) Extra Tube Hold for add-ons. 06/11/2025 9:01 AM EST [facility] Comment:Auto resulted. Blood Venous blood specimen / Unknown 06/11/2025 7:05 AM EST 06/11/2025 7:55 AM EST us Konrad Ivy MD LAB BLOOD ORDERABLES Final Resul t [facility] [address] [place] [address], * Lacosamide level (06/11/2025 7:05 AM EST) Lacosamide 4.5 mcg/mL 06/18/2025 10:38 AM EST [facility] Comment: (Note) Expected concentrations of Lacosamide in patients receiving recommended daily dosages: Up to 15.0 mcg/mL.Toxic range not established. This test was developed and its analytical performance characteristics have been determined by [facility]. It has not been cleared or approved by the FDA. This assay has been validated pursuant to the CLIA regulations and is used for clinical purposes. [facility] [address] [facility] [address] Mirna Cano MD, PhD Test Performed at: [facility] [address], [address] [place] [address] James Cano MD, PhD Blood Venous blood specimen / Unknown 06/11/2025 7:05 AM EST 06/11/2025 7:55 AM EST us Konrad Ivy MD LAB BLOOD ORDERABLES Final Resul t [facility] [address] [place] [address] * Oxcarbazepine level (06/11/2025 7:05 AM EST) Pathologist [facility] Oxcarbazepine 17.9 10 - 35 ug/mL 06/13/2025 1:23 PM EST [facility] Comment: If applicable, any drug confirmation testing reported here was developed and the performance characteristics determined by [facility]. This confirmation testing has not been cleared or approved by the FDA. The laboratory is regulated under CLIA as qualified to perform high-complexity testing. This test is used for patient testing purposes. It should not be regarded as investigational or for research. Test performed at [facility], [address] [facility], [place] [address] Paris Brand MD, PhD - Front Desk Assistant Blood Venous blood specimen / Unknown 06/11/2025 7:05 AM EST 06/11/2025 7:55 AM EST us Konrad Ivy MD LAB BLOOD ORDERABLES Final Resul t [facility] [address] [place] [address] * Clobazam and metabolite (06/11/2025 7:05 AM EST) Clobazam 202 30 - 300 ng/mL 06/18/2025 5:44 PM EST [facility] Comment: INTERPRETIVE INFORMATION: Clobazam and Metabolite, Quant, S/P Clobazam Therapeutic Range: 30-300 ng/mL Toxic Range: Greater than 500 ng/mL N-Desmethylclobazam Therapeutic Range: 300-3000 ng/mL Toxic Range: Greater than 5000 ng/mL Clobazam is a benzodiazepine drug indicated for adjunctive treatment for seizures associated with [place]-Gast[place] syndrome in patients 2 years and older. The therapeutic range is based on serum, pre-dose (trough) draw collection at steady-state concentration. The pharmacokinetics of clobazam are influenced by drug-drug interactions and by poor [id number] metabolism. The metabolite, N-desmethylclobazam has about 20% activity of clobazam. Adverse effects may include constipation, somnolence, sedation and skin rash. The concomitant use of clobazam with other central nervous system (DINKEY MECHANIC) depressants may increase the risk of somnolence and sedation. Test developed and characteristics determined by [facility]. See Compliance Statement B: [employer]/CS N-Desmethylclobazam 1764 300 - 3000 ng/mL 06/18/2025 5:44 PM EST [facility] Comment: Performed By: [facility] [address] [place] [address] Senior Officer: Emeka Granados MD, PhD CLIA Number: [id number] Blood Venous blood specimen / Unknown 06/11/2025 7:05 AM EST 06/11/2025 7:55 AM EST us Konrad Ivy MD LAB BLOOD ORDERABLES Final Resul t [facility] [address] [place] [address] * (ABNORMAL) Comprehensive metabolic panel (06/11/2025 7:05 AM EST) Sodium 139 133 - 145 mmol/L LAB CHEMISTRY METHOD 06/11/2025 8:32 AM EST [facility] Potassium 4.4 3.5 - 5.5 mmol/L LAB CHEMISTRY METHOD 06/11/2025 8:[address] [facility] Chloride 102 96 - 110 mmol/L LAB CHEMISTRY METHOD 06/11/2025 8:[address] [facility] CO2 32 21 - 32 mmol/L LAB CHEMISTRY METHOD 06/11/2025 8:[address] [facility] Anion Gap 5 3 - 11 LAB CHEMISTRY METHOD 06/11/2025 8:[address] [facility] Glucose 90 70 - 100 mg/dL LAB CHEMISTRY METHOD 06/11/2025 8:[address] [facility] BUN 15 5 - 25 mg/dL LAB CHEMISTRY METHOD 06/11/2025 8:[address] [facility] Creatinine 0.51(L) 0.70 - 1.30 mg/dL LAB CHEMISTRY METHOD 06/11/2025 8:[address] [facility] eGFR 149 >=60 mL/min/1. 73m2 LAB CHEMISTRY METHOD 06/11/2025 8:[address] [facility] Comment:Calculation based on the Chronic Kidney Disease Epidemiology Collaboration (CKD-EPI) equation refit without adjustment for race. BUN/Creatinine Ratio 29.4 LAB CHEMISTRY METHOD 06/11/2025 8:[address] [facility] Calcium 9.6 8.5 - 10.5 mg/dL LAB CHEMISTRY METHOD 06/11/2025 8:[address] [facility] AST (SGOT) 16 10 - 42 unit/L LAB CHEMISTRY METHOD 06/11/2025 8:[address] [facility] ALT (SGPT) 33 10 - 60 unit/L LAB CHEMISTRY METHOD 06/11/2025 8:[address] [facility] Alkaline Phosphatase 139(H) 42 - 121 unit/L LAB CHEMISTRY METHOD 06/11/2025 8:[address] [facility] Total Protein 6.9 6.0 - 8.0 g/dL LAB CHEMISTRY METHOD 06/11/2025 8:32 AM EST [facility] Albumin 3.7 3.2 - 5.0 g/dL LAB CHEMISTRY METHOD 06/11/2025 8:32 AM EST [facility] Total Bilirubin 0.3 0.0 - 1.4 mg/dL LAB CHEMISTRY METHOD 06/11/2025 8:32 AM EST [facility] Blood Venous blood specimen / Unknown 06/11/2025 7:05 AM EST 06/11/2025 7:55 AM EST us Konrad Ivy MD LAB BLOOD ORDERABLES Final Resul t [facility] [address] [place] [address], [place] [phone] documented in this encounter Visit Diagnoses Diagnosis Epilepsy, unspecified, not intractable, without status epilepticus (CMS/HCC V24, CMS/HCC V28) Other seizures (CMS/HCC V24, CMS/HCC V28) Other parts counterman (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 documented in this encounter Care Teams Cartoonist Special Effects Relationship Specialty Start Date End Date Konrad Ivy MD [address] [address] [place] [address] [place] [address] [place] PCP - General Internal Medicine 12/03/24 documented as of this encounter
--- OUTSIDE RECORDS SUMMARY | 2025-07-23 13:56 | XMS_ITS | Encounter Summary ---
[facility] Address [address] [place] [address] Care Team Providers Care Cooperative Manager Name Role Phone Konrad Ivy MD Primary Care Provider [phone] Encounter Details Date Type Department Care Team (Late st Contact Info) Description 03/28/2025 Lab Requisition [facility] - Main Lab [address] [place] [address] Konrad Ivy MD [address] [place] [address] Dr [address] [place] Hypo-osmolality and hyponatremia Social History Tobacco Use [...] LAB CHEMISTRY METHOD 03/28/2025 8:26 AM EDT [facility] Potassium 4.8 3.5 - 5.5 mmol/L LAB CHEMISTRY METHOD 03/28/2025 8:26 AM EDT [facility] Chloride 97 96 - 110 mmol/L LAB CHEMISTRY METHOD 03/28/2025 8:26 AM T [facility] CO2 29 21 - 32 mmol/L LAB CHEMISTRY METHOD 03/28/2025 8:26 AM [facility] Anion Gap 5 3 - 11 LAB CHEMISTRY METHOD 03/28/2025 8:26 AM [facility] Glucose 76 70 - 100 mg/dL LAB CHEMISTRY METHOD 03/28/2025 8:26 AM [facility] BUN 12 5 - 25 mg/dL LAB CHEMISTRY METHOD 03/28/2025 8:26 AM [facility] Creatinine 0.53(L) 0.70 - 1.30 mg/dL LAB CHEMISTRY METHOD 03/28/2025 8:26 AM [facility] eGFR 147 >=60 mL/min/1. 73m2 LAB CHEMISTRY METHOD 03/28/2025 8:26 AM [facility] Comment:Calculation based on the Chronic Kidney Disease Epidemiology Collaboration (CKD-EPI) equation refit without adjustment for race. BUN/Creatinine Ratio 22.6 LAB CHEMISTRY METHOD 03/28/2025 8:26 AM [facility] Calcium 9.2 8.5 - 10.5 mg/dL LAB CHEMISTRY METHOD 03/28/2025 8:26 AM [facility] AST (SGOT) 16 10 - 42 unit/L LAB CHEMISTRY METHOD 03/28/2025 8:26 AM [facility] ALT (SGPT) 26 10 - 60 unit/L LAB CHEMISTRY METHOD 03/28/2025 8:26 AM [facility] Alkaline Phosphatase 141(H) 42 - 121 unit/L LAB CHEMISTRY METHOD 03/28/2025 8:26 AM [facility] Total Protein 6.7 6.0 - 8.0 g/dL LAB CHEMISTRY METHOD 03/28/2025 8:26 AM [facility] Albumin 3.8 3.2 - 5.0 g/dL LAB CHEMISTRY METHOD 03/28/2025 8:26 AM [facility] Total Bilirubin 0.3 0.0 - 1.4 mg/dL LAB CHEMISTRY METHOD 03/28/2025 8:26 AM EDT [facility] Blood Venous blood specimen / Unknown 03/28/2025 7:12 AM EDT 03/28/2025 7:58 AM EDT us Konrad Ivy MD LAB BLOOD ORDERABLES Final Resul t [facility] [address] [place] [address], documented in this encounter Visit Diagnoses Diagnosis Hypo-osmolality and hyponatremia documented in this encounter Care Teams Cooperative Manager Relationship Specialty Start Date End Date Konrad Ivy MD [address] [place] [address] Dr [address] [place], [place] PCP - General Internal Medicine 12/03/24 documented as of this encounter
--- OUTSIDE RECORDS SUMMARY | 2025-07-23 13:56 | XMS_ITS | Encounter Summary ---
Author Organization [employer] Address [address] [place] [address] Care Team Providers Care Bead Wrapper Name Role Phone Konrad Ivy MD Primary Care Provider [phone] Encounter Details Date Type Department Care Team (Late st Contact Info) Description 06/06/2025 Lab Requisition [facility] - Main Lab [address] [facility] [place] [address] Konrad Ivy MD [address] [place] [address] Dr [address] [place] Epilepsy, unspecified, not intractable, without status epilepticus (CMS/HCC V24, CMS/HCC V28); Other half-way (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; Hypo-osmolality and hyponatremia Social [...] Associated Diagnosis Comments CLOBAZAM AND METABOLITE Routine 06/06/2025 7:30 AM EST Epilepsy, unspecified, not intractable, without status epilepticus (CMS/HCC V24, CMS/HCC V28) Other half-way (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 Hypo-osmolality and hyponatremia SST - GOLD Routine 06/06/2025 7:30 AM EST Epilepsy, unspecified, not intractable, without status epilepticus (CMS/HCC V24, CMS/HCC V28) 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 (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 Hypo-osmolality and hyponatremia LIPID PANEL WITH REFLEX TO DIRECT LDL Routine 06/06/2025 7:30 AM EST Epilepsy, unspecified, not intractable, without status epilepticus (CMS/HCC V24, CMS/HCC V28) Other half-way (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 Hypo-osmolality and hyponatremia LACOSAMIDE, SERUM OR PLASMA Routine 06/06/2025 7:30 AM EST Epilepsy, unspecified, not intractable, without status epilepticus (CMS/HCC V24, CMS/HCC V28) Other half-way (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 Hypo-osmolality and hyponatremia CBC WITH AUTO DIFFERENTIAL Routine 06/06/2025 7:30 AM EST Epilepsy, unspecified, not intractable, without status epilepticus (CMS/HCC V24, CMS/HCC V28) Other half-way (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 Hypo-osmolality and hyponatremia LAVENDER - EDTA Routine 06/06/2025 7:30 AM EST Epilepsy, unspecified, not intractable, without status epilepticus (CMS/HCC V24, CMS/HCC V28) Other half-way (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 Hypo-osmolality and hyponatremia OXCARBAZEPINE LEVEL Routine 06/06/2025 7 :30 AM EST Epilepsy, unspecified, not intractable, without status epilepticus (CMS/HCC V24, CMS/HCC V28) 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 (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 Hypo-osmolality and hyponatremia CBC AND DIFFERENTIAL Routine 06/06/2025 7:30 AM EST Epilepsy, unspecified, not intractable, without status epilepticus (CMS/HCC V24, CMS/HCC V28) 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 (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 Hypo-osmolality and hyponatremia THYROID STIMULATING HORMONE Routine 06/06/2025 7:30 AM EST Epilepsy, unspecified, not intractable, without status epilepticus (CMS/HCC V24, CMS/HCC V28) Other half-way (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 Hypo-osmolality and hyponatremia COMPREHENSIVE METABOLIC PANEL Routine 06/06/2025 7:30 AM EST Epilepsy, unspecified, not intractable, without status epilepticus (CMS/HCC V24, CMS/HCC V28) Other half-way (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 Hypo-osmolality and hyponatremia documented in this encounter Results * Lavender tube (06/06/2025 7:30 AM EST) Extra Tube Hold for add-ons. 06/06/2025 10:02 AM EST [facility] Comment:Auto resulted. Blood Venous blood specimen / Unknown 06/06/2025 7:30 AM EST 06/06/2025 8:32 AM EST us Konrad Ivy MD LAB BLOOD ORDERABLES Final Resul t Performing Organization Address [facility]/ZIP Co de Phone Number [facility] [address] [place] [address], [place] [phone] * SST tube (06/06/2025 7:30 AM EST) Extra Tube Hold for add-ons. 06/06/2025 10:02 AM EST [facility] Comment:Auto resulted. Blood Venous blood specimen / Unknown 06/06/2025 7:30 AM EST 06/06/2025 8:32 AM EST us Konrad Ivy MD LAB BLOOD ORDERABLES Final Resul t Performing Organization Address City/[facility]/ZIP Co de Phone Number [facility] [address] [place] [address], [place] [phone] * (ABNORMAL) Clobazam and metabolite (06/06/2025 7:30 AM EST) Clobazam 240 30 - 300 ng/mL 06/12/2025 3:08 PM EST [facility] Comment: INTERPRETIVE INFORMATION: Clobazam and Metabolite, [...] influenced by drug-drug interactions and by poor [id number] metabolism. The metabolite, N-desmethylclobazam has about 20% activity of clobazam. Adverse effects may include constipation, somnolence, sedation and skin rash. The concomitant use of clobazam with other central nervous system (OPEN DEVELOPER OPERATOR) depressants may increase the risk of somnolence and sedation. Test developed and characteristics determined by [employer]. See Compliance Statement B: [employer] N-Desmethylclobazam 3004(H) 300 - 3000 ng/mL 06/12/2025 3:08 PM EST [facility] Comment: Performed By: [facility] [address] [place] [id number] [employer]: Emeka Granados MD, PhD CLIA Number: [id number] Blood Venous blood specimen / Unknown 06/06/2025 7:30 AM EST 06/06/2025 8:32 AM EST us Konrad Ivy MD LAB BLOOD ORDERABLES Final Resul t [facility] [address] [place] [address] * (ABNORMAL) CBC auto differential (06/06/2025 7:30 AM EST) WBC 10.1 4.8 - 10.8 K/mcL LAB HEMETOLOGY METHOD 06/06/2025 8:44 AM EST [facility] RBC 4.00(L) 4.50 - 5.50 M/mcL LAB HEMETOLOGY METHOD 06/06/2025 8:44 AM EST [facility] Hemoglobin 13.1(L) 13.5 - 17.5 g/dL LAB HEMETOLOGY METHOD 06/06/2025 8:44 AM EST [facility] Hematocrit 39.0(L) 42.0 - 54.0 % LAB HEMETOLOGY METHOD 06/06/2025 8:44 AM [facility] MCV 98.5(H) 79.0 - 98.0 FL LAB HEMETOLOGY METHOD 06/06/2025 8:44 AM [facility] MCH 33.1(H) 27.0 - 32.0 pcg LAB HEMETOLOGY METHOD 06/06/2025 8:44 AM [facility] MCHC 33.6 32.0 - 37.0 g/dL LAB HEMETOLOGY METHOD 06/06/2025 8:44 AM [facility] RDW 12.7 11.0 - 15.0 % LAB HEMETOLOGY METHOD 06/06/2025 8:44 AM [facility] Platelets 455(H) 130 - 400 K/mcL LAB HEMETOLOGY METHOD 06/06/2025 8:44 AM [facility] MPV 10.5 7.0 - 11.0 FL LAB HEMETOLOGY METHOD 06/06/2025 8:44 AM [facility] NRBC 0.0 <1.0 % LAB HEMETOLOGY METHOD 06/06/2025 8:44 AM [facility] NRBC Absolute 0.00 <0.10 K/mcL LAB HEMETOLOGY METHOD 06/06/2025 8:44 AM [facility] Neutrophils Relative 67.2 % LAB HEMETOLOGY METHOD 06/06/2025 8:44 AM [facility] Lymphocytes Relative 16.9 % LAB HEMETOLOGY METHOD 06/06/2025 8:44 AM [facility] Monocytes Relative 13.5 % LAB HEMETOLOGY METHOD 06/06/2025 8:44 AM [facility] Eosinophils Relative 1.2 % LAB HEMETOLOGY METHOD 06/06/2025 8:44 AM [facility] Basophils Relative 0.9 % LAB HEMETOLOGY METHOD 06/06/2025 8:44 AM EST [facility] Immature Granulocytes Relative 0.3 % LAB HEMETOLOGY METHOD 06/06/2025 8:44 AM EST [facility] Neutrophils Absolute 6.79 1.50 - 7.00 K/mcL LAB HEMETOLOGY METHOD 06/06/2025 8:44 AM EST [facility] Lymphocytes Absolute 1.71 1.00 - 5.00 K/mcL LAB HEMETOLOGY METHOD 06/06/2025 8:44 AM EST [facility] Monocytes Absolute 1.36(H) 0.20 - 1.00 K/mcL LAB HEMETOLOGY METHOD 06/06/2025 8:44 AM EST [facility] Eosinophils Absolute 0.12 0.00 - 0.50 K/mcL LAB HEMETOLOGY METHOD 06/06/2025 8:44 AM EST [facility] Basophils Absolute 0.09 0.00 - 0.20 K/mcL LAB HEMETOLOGY METHOD 06/06/2025 8:44 AM EST [facility] Immature Granulocytes Absolute 0.03 0.00 - 0.03 K/mcL LAB HEMETOLOGY METHOD 06/06/2025 8:44 AM EST [facility] Blood Venous blood specimen / Unknown 06/06/2025 7:30 AM EST 06/06/2025 8:32 AM EST Konrad Ivy MD LAB BLOOD ORDERABLES Final Resul t [facility] [address] [place] [address], * Oxcarbazepine level (06/06/2025 7:30 AM EST) Oxcarbazepine 25.0 10 - 35 ug/mL 06/09/2025 11:19 AM EST [facility] Comment: If applicable, any drug confirmation testing reported here was developed and the performance characteristics determined by [facility]. This confirmation testing has not been cleared or approved by the FDA. The laboratory is regulated under CLIA as qualified to perform high-complexity testing. This test is used for patient testing purposes. It should not be regarded as investigational or for research. Test performed at [facility], [address] , [place] [address] Paris Brand MD, PhD - Stockroom Helper Blood Venous blood specimen / Unknown 06/06/2025 7:30 AM EST 06/06/2025 8:32 AM EST us Konrad Ivy MD LAB BLOOD ORDERABLES Final Resul t Performing Organization Address City/[facility]/ZIP Co de Phone Number [facility] [address] [place] [address] * Thyroid stimulating hormone (06/06/2025 7:30 AM EST) TSH 0.89 0.40 - 4.00 mcIU/mL LAB CHEMISTRY METHOD 06/06/2025 10:31 AM EST [facility] Blood Venous blood specimen / Unknown 06/06/2025 7:30 AM EST 06/06/2025 8:32 AM EST us Konrad Ivy MD LAB BLOOD ORDERABLES Final Resul t Performing Organization Address City/[facility]/ZIP Co de Phone Number [facility] [address] [place] [address], [place] [phone] * Lacosamide level (06/06/2025 7:30 AM EST) Lacosamide 4.9 mcg/mL 06/14/2025 1:44 AM EST [facility] Comment: (Note) Expected concentrations of Lacosamide in patients receiving recommended daily dosages: Up to 15.0 mcg/mL.Toxic range not established. This test was developed and its analytical performance characteristics have been determined by [employer]. It has not been cleared or approved by the FDA. This assay has been validated pursuant to the CLIA regulations and is used for clinical purposes. [facility] [address] [facility] [address] [facility] [address] Mirna Cano MD, PhD Test Performed at: [facility] [address], [address] [place] [address] James Cano MD, PhD Blood Venous blood specimen / Unknown 06/06/2025 7:30 AM EST 06/06/2025 8:32 AM EST us Konrad Ivy MD LAB BLOOD ORDERABLES Final Resul t [facility] [address] [place] [address] * (ABNORMAL) Lipid panel with reflex to direct LDL (06/06/2025 7:30 AM EST) Cholesterol 197 0 - 200 mg/dL LAB CHEMISTRY METHOD 06/06/2025 9:13 AM [facility] Triglycerides 55 0 - 150 mg/dL LAB CHEMISTRY METHOD 06/06/2025 9:13 AM [facility] HDL 66 >=40 mg/dL LAB CHEMISTRY METHOD 06/06/2025 9:13 AM [facility] LDL Calculated 120(H) 0 - 100 mg/dL LAB CHEMISTRY METHOD 06/06/2025 9:13 AM [facility] Comment:Estimated LDL Calcul ated using equation: Total cholesterol - HDL cholesterol - (Triglycerides/5) VLDL Cholesterol Adam 11 mg/dL LAB CHEMISTRY METHOD 06/06/2025 9:13 AM [facility] Non HDL Chol. (LDL+VLDL) 131 <145 mg/dL LAB CHEMISTRY METHOD 06/06/2025 9:13 AM [facility] Chol/HDL Ratio 3.0 0.0 - 4.4 LAB CHEMISTRY METHOD 06/06/2025 9:13 AM [facility] Blood Venous blood specimen / Unknown 06/06/2025 7:30 AM EST 06/06/2025 8:32 AM EST us Konrad Ivy MD LAB BLOOD ORDERABLES Final Resul t [facility] [address] [place] [address], [place] [phone] * (ABNORMAL) Comprehensive metabolic panel (06/06/2025 7:30 AM EST) Sodium 132(L) 133 - 145 mmol/L LAB CHEMISTRY METHOD 06/06/2025 9:13 AM [facility] Potassium 4.7 3.5 - 5.5 mmol/L LAB CHEMISTRY METHOD 06/06/2025 9:13 AM [facility] Chloride 98 96 - 110 mmol/L LAB CHEMISTRY METHOD 06/06/2025 9:13 AM [facility] CO2 30 21 - 32 mmol/L LAB CHEMISTRY METHOD 06/06/2025 9:13 AM [facility] Anion Gap 4 3 - 11 LAB CHEMISTRY METHOD 06/06/2025 9:13 AM [facility] Glucose 81 70 - 100 mg/dL LAB CHEMISTRY METHOD 06/06/2025 9:13 AM [facility] BUN 10 5 - 25 mg/dL LAB CHEMISTRY METHOD 06/06/2025 9:13 AM [facility] Creatinine 0.50(L) 0.70 - 1.30 mg/dL LAB CHEMISTRY METHOD 06/06/2025 9:13 AM [facility] eGFR 150 >=60 mL/min/1. 73m2 LAB CHEMISTRY METHOD 06/06/2025 9:13 AM [facility] Comment:Calculation based on the Chronic Kidney Disease Epidemiology Collaboration (CKD-EPI) equation refit without adjustment for race. BUN/Creatinine Ratio 20.0 LAB CHEMISTRY METHOD 06/06/2025 9:13 AM [facility] Calcium 9.1 8.5 - 10.5 mg/dL LAB CHEMISTRY METHOD 06/06/2025 9:13 AM [facility] AST (SGOT) 11 10 - 42 unit/L LAB CHEMISTRY METHOD 06/06/2025 9:13 AM [facility] ALT (SGPT) 29 10 - 60 unit/L LAB CHEMISTRY METHOD 06/06/2025 9:13 AM [facility] Alkaline Phosphatase 140(H) 42 - 121 unit/L LAB CHEMISTRY METHOD 06/06/2025 9:13 AM [facility] Total Protein 6.8 6.0 - 8.0 g/dL LAB CHEMISTRY METHOD 06/06/2025 9:13 AM [facility] Albumin 3.6 3.2 - 5.0 g/dL LAB CHEMISTRY METHOD 06/06/2025 9:13 AM [facility] Total Bilirubin 0.3 0.0 - 1.4 mg/dL LAB CHEMISTRY METHOD 06/06/2025 9:13 AM EST [facility] Blood Venous blood specimen / Unknown 06/06/2025 7:30 AM EST 06/06/2025 8:32 AM EST us Konrad Ivy MD LAB BLOOD ORDERABLES Final Resul t [facility] [address] [place] [address], documented in this encounter Visit Diagnoses Diagnosis Epilepsy, unspecified, not intractable, without status epilepticus (CMS/HCC V24, CMS/HCC V28) 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
--- OUTSIDE RECORDS SUMMARY | 2025-07-23 13:56 | XMS_ITS | Encounter Summary ---
[facility] Organization [facility] Address [address] [place] [address] Care Team Providers Care Director Of Restaurants Name Role Phone Konrad Ivy MD Primary Care Provider [phone] Encounter Details Date Type Department Care Team (Late st Contact Info) Description 06/27/2025 Lab Requisition [facility] - Main Lab [address] [facility] [place] [address] Konrad Ivy MD [address] [place] [address] Dr [address] [place] Other terminal makeup operator (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 Social History Tobacco [...] Associated Diagnosis Comments COMPREHENSIVE METABOLIC PANEL Routine 06/27/2025 6:20 AM EST Other terminal makeup operator (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 documented in this encounter Results * (ABNORMAL) Comprehensive metabolic panel (06/27/2025 6:20 AM EST) Sodium 137 133 - 145 mmol/L 06/27/2025 8:10 AM EST [facility] Potassium 4.8 3.5 - 5.5 mmol/L 06/27/2025 8:10 AM EST [facility] Chloride 98 96 - 110 mmol/L 06/27/2025 8:10 AM EST [facility] CO2 30 21 - 32 mmol/L 06/27/2025 8:10 AM EST [facility] Anion Gap 9 3 - 11 06/27/2025 8:[address] [facility] Glucose 80 70 - 100 mg/dL 06/27/2025 8:[address] [facility] BUN 10 5 - 25 mg/dL 06/27/2025 8:[address] [facility] Creatinine 0.60(L) 0.70 - 1.30 mg/dL 06/27/2025 8:[address] [facility] eGFR 142 >=60 mL/min/1. 73m2 06/27/2025 8:[address] [facility] Comment:Calculation based on the Chronic Kidney Disease Epidemiology Collaboration (CKD-EPI) equation refit without adjustment for race. BUN/Creatinine Ratio 16.7 06/27/2025 8:[address] [facility] Calcium 9.5 8.5 - 10.5 mg/dL 06/27/2025 8:[address] [facility] AST (SGOT) 17 10 - 42 unit/L 06/27/2025 8:[address] [facility] ALT (SGPT) 20 10 - 60 unit/L 06/27/2025 8:[address] [facility] Alkaline Phosphatase 144(H) 42 - 121 unit/L 06/27/2025 8:[address] [facility] Total Protein 7.0 6.0 - 8.0 g/dL 06/27/2025 8:[address] [facility] Albumin 4.3 3.2 - 5.0 g/dL 06/27/2025 8:[address] [facility] Total Bilirubin 0.3 0.0 - 1.4 mg/dL 06/27/2025 8:[address] [facility] Blood Venous blood specimen / Unknown 06/27/2025 6:20 AM EST 06/27/2025 6:51 AM EST us Konrad Ivy MD LAB BLOOD ORDERABLES Final Resul t [facility] [address] [place] [address], documented in this encounter Visit Diagnoses Diagnosis Other fdc (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 documented in this encounter Care Teams Director Of Restaurants Relationship Specialty Start Date End Date Konrad Ivy MD [address] [place] [address] Dr [address] [place], [place] PCP - General Internal Medicine 12/03/24 documented as of this encounter
--- OUTSIDE RECORDS SUMMARY | 2025-07-23 13:56 | XMS_ITS | Encounter Summary ---
[facility] Organization [facility] Address [address] [place] [address] Care Team Providers Care Coal Handler Name Role Phone Konrad Ivy MD Primary Care Provider [phone] Encounter Details Date Type Department Care Team (Late st Contact Info) Description 07/22/2025 Lab Requisition [facility] - Main Lab [address] [facility] [place] [address] Konrad Ivy MD [address] [place] [address] [address] [place] Other disorders of electrolyte and fluid balance, [...] Associated Diagnosis Comments COMPREHENSIVE METABOLIC PANEL Routine 07/22/2025 7:15 AM EST Other disorders of electrolyte and fluid balance, not elsewhere classified documented in this encounter Results * (ABNORMAL) Comprehensive metabolic panel (07/22/2025 7:15 AM EST) Sodium 135 133 - 145 mmol/L 07/22/2025 8:33 AM EST [facility] Potassium 4.6 3.5 - 5.5 mmol/L 07/22/2025 8:33 AM EST [facility] Chloride 98 96 - 110 mmol/L 07/22/2025 8:[address] [facility] CO2 29 21 - 32 mmol/L 07/22/2025 8:33 AM EST [facility] Anion Gap 8 3 - 11 07/22/2025 8:[address] [facility] Glucose 85 70 - 100 mg/dL 07/22/2025 8:[address] [facility] BUN 8 5 - 25 mg/dL 07/22/2025 8:[address] [facility] Creatinine 0.57(L) 0.70 - 1.30 mg/dL 07/22/2025 8:[address] [facility] eGFR 144 >=60 mL/min/1. 73m2 07/22/2025 8:[address] [facility] Comment:Calculation based on the Chronic Kidney Disease Epidemiology Collaboration (CKD-EPI) equation refit without adjustment for race. BUN/Creatinine Ratio 14.0 07/22/2025 8:[address] [facility] Calcium 9.1 8.5 - 10.5 mg/dL 07/22/2025 8:[address] [facility] AST (SGOT) 17 10 - 42 unit/L 07/22/2025 8:[address] [facility] ALT (SGPT) 21 10 - 60 unit/L 07/22/2025 8:[address] [facility] Alkaline Phosphatase 134(H) 42 - 121 unit/L 07/22/2025 8:[address] [facility] Total Protein 7.0 6.0 - 8.0 g/dL 07/22/2025 8:[address] [facility] Albumin 4.2 3.2 - 5.0 g/dL 07/22/2025 8:[address] [facility] Total Bilirubin 0.3 0.0 - 1.4 mg/dL 07/22/2025 8:[address] [facility] Blood Venous blood specimen / Unknown 07/22/2025 7:15 AM EST 07/22/2025 8:02 AM EST us Konrad Ivy MD LAB BLOOD ORDERABLES Final Resul t [facility]) [facility] [address] [place] [address], documented in this encounter Visit Diagnoses Diagnosis Other disorders of electrolyte and fluid balance, not elsewhere classified documented in this encounter Care Teams Coal Handler Relationship Specialty Start Date End Date Konrad Ivy MD [address] [place], [place] PCP - General Internal Medicine 12/03/24 documented as of this encounter
--- OUTSIDE RECORDS SUMMARY | 2025-07-23 13:56 | XMS_ITS | Encounter Summary ---
Author Organization [facility] Address [address] [place] [address] Care Team Providers Care Decorative Greens Cutter Name Role Phone Konrad Ivy MD Primary Care Provider [phone] Encounter Details Date Type Department Care Team (Late st Contact Info) Description 05/23/2025 Lab Requisition [facility] - Main Lab [address] [facility] [place] [address] Konrad Ivy MD [address] [place] [address] [address] [place] Other custodial (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; Hypo-osmolality and hyponatremia Social [...] Associated Diagnosis Comments CLOBAZAM AND METABOLITE Routine 05/23/2025 6:35 AM EDT Other custodial (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 Hypo-osmolality and hyponatremia SST - GOLD Routine 05/23/2025 6:35 AM EDT Other custodial (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 Hypo-osmolality and hyponatremia LACOSAMIDE, SERUM OR PLASMA Routine 05/23/2025 6:35 AM EDT Other custodial (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 Hypo-osmolality and hyponatremia LAVENDER - EDTA Routine 05/23/2025 6:35 AM EDT Other custodial (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 Hypo-osmolality and hyponatremia OXCARBAZEPINE LEVEL Routine 05/23/2025 6 :35 AM EDT Other custodial (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 Hypo-osmolality and hyponatremia COMPREHENSIVE METABOLIC PANEL Routine 05/23/2025 6:35 AM EDT Other custodial (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 Hypo-osmolality and hyponatremia documented in this encounter Results * Lavender tube (05/23/2025 6:35 AM EDT) Extra Tube Hold for add-ons. 05/23/2025 9:01 AM EDT [facility] Comment:Auto resulted. Blood Venous blood specimen / Unknown 05/23/2025 6:35 AM EDT 05/23/2025 7:30 AM EDT us Konrad Ivy MD LAB BLOOD ORDERABLES Final Resul t Performing Organization Address [facility]/ZIP Co de Phone Number [facility] [address] [place] [address], [place] [phone] * SST tube (05/23/2025 6:35 AM EDT) Extra Tube Hold for add-ons. 05/23/2025 9:01 AM EDT [facility] Comment:Auto resulted. Blood Venous blood specimen / Unknown 05/23/2025 6:35 AM EDT 05/23/2025 7:30 AM EDT us Konrad Ivy MD LAB BLOOD ORDERABLES Final Resul t Performing Organization Address [facility]/ZIP Co de Phone Number [facility] [address] [place] [address], [place] [phone] * Clobazam and metabolite (05/23/2025 6:35 AM EDT) Clobazam 212 30 - 300 ng/mL 05/29/2025 2:24 PM EDT [facility] Comment: INTERPRETIVE INFORMATION: Clobazam and [...] influenced by drug-drug interactions and by poor [id number] metabolism. The metabolite, N-desmethylclobazam has about 20% activity of clobazam. Adverse effects may include constipation, somnolence, sedation and skin rash. The concomitant use of clobazam with other central nervous system (INTAKE COORDINATOR) depressants may increase the risk of somnolence and sedation. Test developed and characteristics determined by [facility]. See Compliance Statement B: [employer] N-Desmethylclobazam 2333 300 - 3000 ng/mL 05/29/2025 2:24 PM EDT [facility] Comment: Performed By: [facility] [address] [place] [address] Donor Relations Associate: Emeka Granados MD, PhD CLIA Number: [id number] Blood Venous blood specimen / Unknown 05/23/2025 6:35 AM EDT 05/23/2025 7:30 AM EDT us Konrad Ivy MD LAB BLOOD ORDERABLES Final Resul t [facility] [address] [place] [address] * Lacosamide level (05/23/2025 6:35 AM EDT) Lacosamide 5.9 mcg/mL 05/29/2025 4:37 PM EDT [facility] Comment: (Note) Expected concentrations of Lacosamide in patients receiving recommended daily dosages: Up to 15.0 mcg/mL.Toxic range not established. This test was developed and its analytical performance characteristics have been determined by [employer]. It has not been cleared or approved by the FDA. This assay has been validated pursuant to the CLIA regulations and is used for clinical purposes. [facility] [address] [facility] [address] Mirna Cano MD, PhD Test Performed at: [facility] [address], [address] [place] [address] James Cano MD, PhD Blood Venous blood specimen / Unknown 05/23/2025 6:35 AM EDT 05/23/2025 7:30 AM EDT us Konrad Ivy MD LAB BLOOD ORDERABLES Final Resul t Performing Organization Address City/[facility]/ZIP Co de Phone Number [facility] [address] [place] [address] * Oxcarbazepine level (05/23/2025 6:35 AM EDT) Oxcarbazepine 24.0 10 - 35 ug/mL 05/26/2025 11:02 AM EDT [facility] Comment: If applicable, any drug confirmation testing reported here was developed and the performance characteristics determined by [facility]. This confirmation testing has not been cleared or approved by the FDA. The laboratory is regulated under CLIA as qualified to perform high-complexity testing. This test is used for patient testing purposes. It should not be regarded as investigational or for research. Test performed at [facility], [address] [place] [address] Paris Brand MD, PhD - Returned Materials Inspector Blood Venous blood specimen / Unknown 05/23/2025 6:35 AM EDT 05/23/2025 7:30 AM EDT us Konrad Ivy MD LAB BLOOD ORDERABLES Final Resul t Performing Organization Address City/[facility]/ZIP Co de Phone Number [facility] [address] [place] [address] * (ABNORMAL) Comprehensive metabolic panel (05/23/2025 6:35 AM EDT) Sodium 128(L) 133 - 145 mmol/L LAB CHEMISTRY METHOD 05/23/2025 8:11 AM [facility] Potassium 4.2 3.5 - 5.5 mmol/L LAB CHEMISTRY METHOD 05/23/2025 8:11 AM [facility] Chloride 91(L) 96 - 110 mmol/L LAB CHEMISTRY METHOD 05/23/2025 8:11 AM [facility] CO2 29 21 - 32 mmol/L LAB CHEMISTRY METHOD 05/23/2025 8:11 AM [facility] Anion Gap 8 3 - 11 LAB CHEMISTRY METHOD 05/23/2025 8:11 AM [facility] Glucose 85 70 - 100 mg/dL LAB CHEMISTRY METHOD 05/23/2025 8:11 AM [facility] BUN 8 5 - 25 mg/dL LAB CHEMISTRY METHOD 05/23/2025 8:11 AM [facility] Creatinine 0.42(L) 0.70 - 1.30 mg/dL LAB CHEMISTRY METHOD 05/23/2025 8:11 AM [facility] eGFR 158 >=60 mL/min/1. 73m2 LAB CHEMISTRY METHOD 05/23/2025 8:11 AM [facility] Comment:Calculation based on the Chronic Kidney Disease Epidemiology Collaboration (CKD-EPI) equation refit without adjustment for race. BUN/Creatinine Ratio 19.0 LAB CHEMISTRY METHOD 05/23/2025 8:11 AM [facility] Calcium 8.8 8.5 - 10.5 mg/dL LAB CHEMISTRY METHOD 05/23/2025 8:11 AM [facility] AST (SGOT) 11 10 - 42 unit/L LAB CHEMISTRY METHOD 05/23/2025 8:11 AM [facility] ALT (SGPT) 16 10 - 60 unit/L LAB CHEMISTRY METHOD 05/23/2025 8:11 AM EDT [facility] Alkaline Phosphatase 130(H) 42 - 121 unit/L LAB CHEMISTRY METHOD 05/23/2025 8:11 AM EDT [facility] Total Protein 6.4 6.0 - 8.0 g/dL LAB CHEMISTRY METHOD 05/23/2025 8:11 AM EDT [facility] Albumin 3.4 3.2 - 5.0 g/dL LAB CHEMISTRY METHOD 05/23/2025 8:11 AM EDT [facility] Total Bilirubin 0.4 0.0 - 1.4 mg/dL LAB CHEMISTRY METHOD 05/23/2025 8:11 AM EDT [facility] Blood Venous blood specimen / Unknown 05/23/2025 6:35 AM EDT 05/23/2025 7:30 AM EDT us Konrad Ivy MD LAB BLOOD ORDERABLES Final Resul t [facility] [address] [place] [address], [place] [phone] documented in this encounter Visit Diagnoses Diagnosis 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
--- OUTSIDE RECORDS SUMMARY | 2025-07-23 13:56 | XMS_ITS | Encounter Summary ---
Author Organization 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; Other nonspecific abnormal finding of lung field Social History Tobacco Use Types Packs/Day Years [...] Procedure Name Priority Date/Time Associated Diagnosis Comments COMPLETE BLOOD COUNT Routine 05/09/2025 7:10 AM EDT Other 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 Hemoglobin 13.6 13.5 - 17.5 g/dL LAB HEMETOLOGY METHOD 05/09/2025 8:29 AM [facility] Hematocrit 38.9(L) 42.0 - 54.0 % LAB HEMETOLOGY METHOD 05/09/2025 8:29 AM [facility] MCV 94.6 79.0 - 98.0 FL LAB HEMETOLOGY METHOD 05/09/2025 8:29 AM [facility] MCH 33.1(H) 27.0 - 32.0 pcg LAB HEMETOLOGY METHOD 05/09/2025 8:29 AM [facility] MCHC 35.0 32.0 - 37.0 g/dL LAB HEMETOLOGY METHOD 05/09/2025 8:29 AM [facility] RDW 12.7 11.0 - 15.0 % LAB HEMETOLOGY METHOD 05/09/2025 8:29 AM [facility] Platelets 516(H) 130 - 400 K/mcL LAB HEMETOLOGY METHOD 05/09/2025 8:29 AM [facility] MPV 9.8 7.0 - 11.0 FL LAB HEMETOLOGY METHOD 05/09/2025 8:29 AM [facility] NRBC 0.0 <1.0 % LAB HEMETOLOGY METHOD 05/09/2025 8:29 AM [facility] NRBC Absolute 0.00 <0.10 K/mcL LAB HEMETOLOGY METHOD 05/09/2025 8:29 AM [facility] Blood Venous blood specimen / Unknown 05/09/2025 7:10 AM EDT 05/09/2025 8:18 AM EDT us Konrad Ivy MD LAB BLOOD ORDERABLES Final Resul t [facility] [address] [place] [address], * (ABNORMAL) Basic metabolic panel (05/09/2025 7:10 AM EDT) Sodium 135 133 - 145 mmol/L LAB CHEMISTRY METHOD 05/09/2025 8:[address] [facility] Potassium 4.8 3.5 - 5.5 mmol/L LAB CHEMISTRY METHOD 05/09/2025 8:59 AM [facility] Chloride 100 96 - 110 mmol/L LAB CHEMISTRY METHOD 05/09/2025 8:59 AM [facility] CO2 29 21 - 32 mmol/L LAB CHEMISTRY METHOD 05/09/2025 8:59 AM [facility] Anion Gap 6 3 - 11 LAB CHEMISTRY METHOD 05/09/2025 8:59 AM [facility] Glucose 86 70 - 100 mg/dL LAB CHEMISTRY METHOD 05/09/2025 8:59 AM [facility] BUN 8 5 - 25 mg/dL LAB CHEMISTRY METHOD 05/09/2025 8:59 AM [facility] Creatinine 0.46(L) 0.70 - 1.30 mg/dL LAB CHEMISTRY METHOD 05/09/2025 8:59 AM [facility] eGFR 154 >=60 mL/min/1. 73m2 LAB CHEMISTRY METHOD 05/09/2025 8:59 AM [facility] Comment:Calculation based on the Chronic Kidney Disease Epidemiology Collaboration (CKD-EPI) equation refit without adjustment for race. BUN/Creatinine Ratio 17.4 LAB CHEMISTRY METHOD 05/09/2025 8:59 AM [facility] Calcium 9.5 8.5 - 10.5 mg/dL LAB CHEMISTRY METHOD 05/09/2025 8:59 AM [facility] Blood Venous blood specimen / Unknown 05/09/2025 7:10 AM EDT 05/09/2025 8:18 AM EDT Konrad Ivy MD LAB BLOOD ORDERABLES Final Resul t [facility] (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
--- OUTSIDE RECORDS SUMMARY | 2025-07-23 13:56 | XMS_ITS | Encounter Summary ---
[facility] Address [address] [place] [address] Care Team Providers Care Senior Erp Consultant Name Role Phone Konrad Ivy MD Primary Care Provider [phone] Encounter Details Date Type Department Care Team (Late st Contact Info) Description 03/12/2025 Lab Requisition [facility] - Main Lab [address] [facility] [place] [address] Konrad Ivy MD [address] [place] [address] [address] [place] Other long winder tender (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 Social History Tobacco Use [...] PANEL Routine 03/12/2025 6:15 AM EDT Other long winder tender (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 documented in this encounter Results * (ABNORMAL) Comprehensive metabolic panel (03/12/2025 6:15 AM EDT) Sodium 132(L) 133 - 145 mmol/L LAB CHEMISTRY METHOD 03/12/2025 8:11 AM EDT [facility] Potassium 4.7 3.5 - 5.5 mmol/L LAB CHEMISTRY METHOD 03/12/2025 8:11 AM EDT [facility] Chloride 98 96 - 110 mmol/L LAB CHEMISTRY METHOD 03/12/2025 8:11 AM [facility] CO2 28 21 - 32 mmol/L LAB CHEMISTRY METHOD 03/12/2025 8:11 AM [facility] Anion Gap 6 3 - 11 LAB CHEMISTRY METHOD 03/12/2025 8:11 AM [facility] Glucose 70 70 - 100 mg/dL LAB CHEMISTRY METHOD 03/12/2025 8:11 AM [facility] BUN 8 5 - 25 mg/dL LAB CHEMISTRY METHOD 03/12/2025 8:11 AM [facility] Creatinine 0.47(L) 0.70 - 1.30 mg/dL LAB CHEMISTRY METHOD 03/12/2025 8:11 AM [facility] eGFR 153 >=60 mL/min/1. 73m2 LAB CHEMISTRY METHOD 03/12/2025 8:11 AM [facility] Comment:Calculation based on the Chronic Kidney Disease Epidemiology Collaboration (CKD-EPI) equation refit without adjustment for race. BUN/Creatinine Ratio 17.0 LAB CHEMISTRY METHOD 03/12/2025 8:11 AM [facility] Calcium 9.3 8.5 - 10.5 mg/dL LAB CHEMISTRY METHOD 03/12/2025 8:11 AM [facility] AST (SGOT) 17 10 - 42 unit/L LAB CHEMISTRY METHOD 03/12/2025 8:11 AM [facility] ALT (SGPT) 21 10 - 60 unit/L LAB CHEMISTRY METHOD 03/12/2025 8:11 AM [facility] Alkaline Phosphatase 170(H) 42 - 121 unit/L LAB CHEMISTRY METHOD 03/12/2025 8:11 AM [facility] Total Protein 7.4 6.0 - 8.0 g/dL LAB CHEMISTRY METHOD 03/12/2025 8:11 AM [facility] Albumin 4.0 3.2 - 5.0 g/dL LAB CHEMISTRY METHOD 03/12/2025 8:11 AM [facility] Total Bilirubin 0.3 0.0 - 1.4 mg/dL LAB CHEMISTRY METHOD 03/12/2025 8:11 AM EDT [facility] Blood Venous blood specimen / Unknown 03/12/2025 6:15 AM EDT 03/12/2025 6:47 AM EDT us Konrad Ivy MD LAB BLOOD ORDERABLES Final Resul t [facility] [address] [place] [address], documented in this encounter Visit Diagnoses Diagnosis Other long winder tender (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 documented in this encounter Care Teams Senior Erp Consultant Relationship Specialty Start Date End Date Konrad Ivy MD [address] [place] [address] Dr [address] [place], [place] PCP - General Internal Medicine 12/03/24 documented as of this encounter
--- OUTSIDE RECORDS SUMMARY | 2025-07-23 13:56 | XMS_ITS | Encounter Summary ---
Author Organization [facility] Address [address] [place] [address] Care Team Providers Care Oyster Culturist Name Role Phone Konrad Ivy MD Primary Care Provider Encounter Details Date Type Department Care Team (Late st Contact Info) Description 05/22/2025 Lab Requisition [facility] - Main Lab [address] [place] [id number] Konrad Ivy MD [address] [place] [address] [address] [place], [place] Hypo-osmolality and hyponatremia Social History Tobacco [...] Procedure Name Priority Date/Time Associated Diagnosis Comments SODIUM, URINE, RANDOM Routine 05/22/2025 12:00 AM EDT Hypo-osmolality and hyponatremia documented in this encounter Results * Sodium, urine, random (05/22/2025 12:00 AM EDT) Sodium, Ur 14 mmol/L LAB CHEMISTRY METHOD 05/22/2025 10:[address] [facility] Urine Urinary bladder structure / Unknown 05/22/2025 05/22/2025 10:03 PM EDT us Konrad Ivy MD LAB URINE ORDERABLES Final Resul t [facility] [address] [place] [address], [place] [phone] documented in this encounter Visit Diagnoses Diagnosis Hypo-osmolality and hyponatremia documented in this encounter Care Teams Oyster Culturist Relationship Specialty Start Date End Date Konrad Ivy MD [address] [place] [address] [address] [place] PCP - General Internal Medicine 12/03/24 documented as of this encounter
--- OUTSIDE RECORDS SUMMARY | 2025-07-23 13:56 | XMS_ITS | Encounter Summary ---
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 Social History Tobacco Use [...] Associated Diagnosis Comments COMPREHENSIVE METABOLIC PANEL Routine 07/17/2025 6:00 AM EST 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 documented in this encounter Results * (ABNORMAL) Comprehensive metabolic panel (07/17/2025 6:00 AM EST) Sodium 135 133 - 145 mmol/L 07/17/2025 7:34 AM EST [facility] Potassium 4.8 3.5 - 5.5 mmol/L 07/17/2025 7:34 AM EST [facility] Chloride 96 96 - 110 mmol/L 07/17/2025 7:34 AM EST [facility] CO2 29 21 - 32 mmol/L 07/17/2025 7:34 AM EST [facility] Anion Gap 10 3 - 11 07/17/2025 7:34 AM [facility] Glucose 81 70 - 100 mg/dL 07/17/2025 7:34 AM [facility] BUN 8 5 - 25 mg/dL 07/17/2025 7:34 AM [facility] Creatinine 0.51(L) 0.70 - 1.30 mg/dL 07/17/2025 7:34 AM [facility] eGFR 149 >=60 mL/min/1. 73m2 07/17/2025 7:34 AM [facility] Comment:Calculation based on the Chronic Kidney Disease Epidemiology Collaboration (CKD-EPI) equation refit without adjustment for race. BUN/Creatinine Ratio 15.7 07/17/2025 7:34 AM [facility] Calcium 9.3 8.5 - 10.5 mg/dL 07/17/2025 7:34 AM [facility] AST (SGOT) 15 10 - 42 unit/L 07/17/2025 7:34 AM [facility] ALT (SGPT) 20 10 - 60 unit/L 07/17/2025 7:34 AM [facility] Alkaline Phosphatase 128(H) 42 - 121 unit/L 07/17/2025 7:34 AM [facility] Total Protein 6.8 6.0 - 8.0 g/dL 07/17/2025 7:34 AM [facility] Albumin 4.2 3.2 - 5.0 g/dL 07/17/2025 7:34 AM [facility] Total Bilirubin 0.4 0.0 - 1.4 mg/dL 07/17/2025 7:34 AM [facility] Blood Venous blood specimen / Unknown 07/17/2025 6:00 AM EST 07/17/2025 6:43 AM EST us Konrad Ivy MD LAB BLOOD ORDERABLES Final Resul t [facility] ([facility]) [facility] [address] [place] [address], documented in this encounter Visit Diagnoses Diagnosis Other chcf (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 documented in this encounter Care Teams Livestock Nutritionist Relationship Specialty Start Date End Date Konrad Ivy MD [address] [place] [address] Dr [address] [place], [place] PCP - General Internal Medicine 12/03/24 documented as of this encounter
--- OUTSIDE RECORDS SUMMARY | 2025-07-23 13:56 | XMS_ITS | Encounter Summary ---
Author Organization [facility] Address [address] [place] [address] Care Team Providers Care Trench Pipe Layer Name Role Phone Konrad Ivy MD Primary Care Provider [phone] Encounter Details Date Type Department Care Team (Late st Contact Info) Description 03/21/[address] 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 This confirmation testing has not been cleared or approved by the FDA. The laboratory is regulated under CLIA as qualified to perform high-complexity testing. This test is used for patient testing purposes. It should not be regarded as investigational or for research. Test performed at [facility], [address], [place] [address] Paris Brand MD, PhD - Student Union Consultant Blood Venous blood specimen / Unknown 03/21/2025 6:15 AM EDT 03/21/2025 6:52 AM EDT us Konrad Ivy MD LAB BLOOD ORDERABLES Final Resul t [facility] [address] [place] [address] * (ABNORMAL) Basic metabolic panel (03/21/2025 6:15 AM EDT) Sodium 128(L) 133 - 145 mmol/L LAB CHEMISTRY METHOD 03/21/2025 7:[address] [facility] Potassium 5.5 3.5 - 5.5 mmol/L LAB CHEMISTRY METHOD 03/21/2025 7:[address] [facility] Chloride 95(L) 96 - 110 mmol/L LAB CHEMISTRY METHOD 03/21/2025 7:[address] [facility] CO2 24 21 - 32 mmol/L LAB CHEMISTRY METHOD 03/21/2025 7:[address] [facility] Anion Gap 9 3 - 11 LAB CHEMISTRY METHOD 03/21/2025 7:[address] [facility] Glucose 73 70 - 100 mg/dL LAB CHEMISTRY METHOD 03/21/2025 7:[address] [facility] BUN 11 5 - 25 mg/dL LAB CHEMISTRY METHOD 03/21/2025 7:[address] [facility] Creatinine 0.42(L) 0.70 - 1.30 mg/dL LAB CHEMISTRY METHOD 03/21/2025 7:[address] [facility] eGFR 158 >=60 mL/min/1. 73m2 LAB CHEMISTRY METHOD 03/21/2025 7:30 AM EDT [facility] Comment:Calculation based on the Chronic Kidney Disease Epidemiology Collaboration (CKD-EPI) equation refit without adjustment for race. 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
--- OUTSIDE RECORDS SUMMARY | 2025-07-23 13:56 | XMS_ITS | Clinical Summary ---
Author Organization [address] Address [address] [place] [address] Phone Care Team Providers Care Recreation Therapy Aide Name Role Phone Konrad Ivy MD Primary Care Provider [phone] Encounters Date Type Department Care Team Description 07/22/2025 Lab Requisition [facility] [address] [place] [phone] Konrad Ivy MD Other disorders of electrolyte and fluid balance, not elsewhere classified 07/17/2025 Lab Requisition [facility] [address] [place] [phone] Konrad Ivy MD Other halfway (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 07/08/2025 Lab Requisition [facility] Lab [address] [place] [phone] Konrad Ivy MD Hypo-osmolality and hyponatremia; Epilepsy, unspecified, not intractable, without status epilepticus (CMS/HCC V24, CMS/HCC V28) 07/04/2025 Lab Requisition [facility] Lab [address] [place] [phone] Konrad Ivy MD Hypo-osmolality and hyponatremia 06/27/2025 Lab Requisition [facility] [address] [place] [phone] Konrad Ivy MD Other superintendent terminal (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 06/11/2025 Lab Requisition [facility] [address] [place] [phone] Konrad Ivy MD Epilepsy, unspecified, not intractable, without status epilepticus (CMS/HCC V24, CMS/HCC V28); Other seizures (CMS/HCC V24, [facility] V28); Other superintendent terminal (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 06/06/2025 Lab Requisition [facility] Lab [address] [place] [phone] Konrad Ivy MD Epilepsy, unspecified, not intractable, without status epilepticus ([facility] V24, [facility] V28); Other halfway (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; Hypo-osmolality and hyponatremia 05/30/2025 Lab Requisition [facility] [address] [place] [phone] Konrad Ivy MD Hypo-osmolality and hyponatremia 05/29/2025 Lab Requisition [facility] [address] [place] [phone] Konrad Ivy MD Hypo-osmolality and hyponatremia 05/23/2025 Lab Requisition [facility] [address] [place] [phone] Konrad Ivy MD Other halfway (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; Hypo-osmolality and hyponatremia 05/22/2025 Lab Requisition [facility] [address] [place] [phone] Konrad Ivy MD Hypo-osmolality and hyponatremia 05/21/2025 Lab Requisition [facility] [address] [place] [phone] Konrad Ivy MD Other disorders of electrolyte and fluid balance, not elsewhere classified 05/09/2025 Lab Requisition [facility] Lab [address] [place] [phone] Konrad Ivy MD Other superintendent terminal (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; Other nonspecific abnormal finding of lung field from Last 3 Months Social History Tobacco [...] Health Screening 12/03/2024 COVID-19 Vaccine (1 - 2024-2 6 season) 2025 Influenza Vaccine (#1) 2025 Cholesterol Screening (Lipid Panel) 06/06/2030 06/06/2025, 12/03/2024 RSV Immunization Adult Patients (1 - 1-dose 75+ series) 10/08/2079 HIB [...] age to complete this topic Pneumococcal Vaccine: Pediatrics (0 to 5 Years) and At-Risk Patients (6 to 49 Years) Aged Out No longer eligible b ased on patient's age to complete this topic RSV Immunization Patients Under 20 months Aged Out No longer eligible b ased on patient's age to complete this topic Procedures Procedure Name Priority Date/Time Associated Diagnosis Comments COMPREHENSIVE METABOLIC PANEL Routine 07/22/2025 7:15 AM EST Other disorders of electrolyte and fluid balance, not elsewhere classified COMPREHENSIVE METABOLIC PANEL Routine 07/17/2025 6:00 AM EST Other superintendent terminal (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 COMPREHENSIVE METABOLIC PANEL Routine 07/08/2025 6:23 AM EST Hypo-osmolality and hyponatremia Epilepsy, unspecified, not intractable, without status epilepticus (CMS/HCC V24, CMS/HCC V28) COMPREHENSIVE METABOLIC PANEL Routine 06/27/2025 6:20 AM EST Other halfway (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 LAVENDER - EDTA Routine 06/11/2025 7:05 AM EST Epilepsy, unspecified, not intractable, without status epilepticus (CMS/HCC V24, CMS/HCC V28) Other seizures (CMS/HCC V24, CMS/HCC V28) Other superintendent terminal (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 LACOSAMIDE, SERUM OR PLASMA Routine 06/11/2025 7:05 AM EST Epilepsy, unspecified, not intractable, without status epilepticus (CMS/HCC V24, CMS/HCC V28) Other seizures (CMS/HCC V24, CMS/HCC V28) Other halfway (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 OXCARBAZEPINE LEVEL Routine 06/11/2025 7 :05 AM EST Epilepsy, unspecified, not intractable, without status epilepticus (CMS/HCC V24, CMS/HCC V28) Other seizures (CMS/HCC V24, CMS/HCC V28) Other halfway (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 CLOBAZAM AND METABOLITE Routine 06/11/2025 7:05 AM EST Epilepsy, unspecified, not intractable, without status epilepticus (CMS/HCC V24, CMS/HCC V28) Other seizures (CMS/HCC V24, CMS/HCC V28) Other halfway (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 COMPREHENSIVE METABOLIC PANEL Routine 06/11/2025 7:05 AM EST Epilepsy, unspecified, not intractable, without status epilepticus (CMS/HCC V24, CMS/HCC V28) Other seizures (CMS/HCC V24, CMS/HCC V28) Other superintendent terminal (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 LAVENDER - EDTA Routine 06/06/2025 7:30 AM EST Epilepsy, unspecified, not intractable, without status epilepticus (CMS/HCC V24, CMS/HCC V28) Other halfway (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 Hypo-osmolality and hyponatremia SST - GOLD Routine 06/06/2025 7:30 AM EST Epilepsy, unspecified, not intractable, without status epilepticus (CMS/HCC V24, CMS/HCC V28) Other halfway (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 Hypo-osmolality and hyponatremia CLOBAZAM AND METABOLITE Routine 06/06/2025 7:30 AM EST Epilepsy, unspecified, not intractable, without status epilepticus (CMS/HCC V24, CMS/HCC V28) Other superintendent terminal (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 Hypo-osmolality and hyponatremia CBC WITH AUTO DIFFERENTIAL Routine 06/06/2025 7:30 AM EST Epilepsy, unspecified, not intractable, without status epilepticus (CMS/HCC V24, CMS/HCC V28) Other superintendent terminal (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 Hypo-osmolality and hyponatremia OXCARBAZEPINE LEVEL Routine 06/06/2025 7 :30 AM EST Epilepsy, unspecified, not intractable, without status epilepticus (CMS/HCC V24, CMS/HCC V28) Other superintendent terminal (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 Hypo-osmolality and hyponatremia THYROID STIMULATING HORMONE Routine 06/06/2025 7:30 AM EST Epilepsy, unspecified, not intractable, without status epilepticus (CMS/HCC V24, CMS/HCC V28) Other halfway (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 Hypo-osmolality and hyponatremia CBC AND DIFFERENTIAL Routine 06/06/2025 7:30 AM EST Epilepsy, unspecified, not intractable, without status epilepticus (CMS/HCC V24, CMS/HCC V28) Other halfway (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 Hypo-osmolality and hyponatremia LACOSAMIDE, SERUM OR PLASMA Routine 06/06/2025 7:30 AM EST Epilepsy, unspecified, not intractable, without status epilepticus (CMS/HCC V24, CMS/HCC V28) Other superintendent terminal (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 Hypo-osmolality and hyponatremia LIPID PANEL WITH REFLEX TO DIRECT LDL Routine 06/06/2025 7:30 AM EST Epilepsy, unspecified, not intractable, without status epilepticus (CMS/HCC V24, CMS/HCC V28) Other superintendent terminal (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 Hypo-osmolality and hyponatremia COMPREHENSIVE METABOLIC PANEL Routine 06/06/2025 7:30 AM EST Epilepsy, unspecified, not intractable, without status epilepticus (CMS/HCC V24, CMS/HCC V28) Other superintendent terminal (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 Hypo-osmolality and hyponatremia COMPREHENSIVE METABOLIC PANEL Routine 05/30/2025 6:50 AM EDT Hypo-osmolality and hyponatremia SODIUM, URINE, RANDOM Routine 05/29/2025 8:15 PM EDT Hypo-osmolality and hyponatremia LAVENDER - EDTA Routine 05/23/2025 6:35 AM EDT Other halfway (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 Hypo-osmolality and hyponatremia SST - GOLD Routine 05/23/2025 6:35 AM EDT Other superintendent terminal (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 Hypo-osmolality and hyponatremia CLOBAZAM AND METABOLITE Routine 05/23/2025 6:35 AM EDT Other halfway (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 Hypo-osmolality and hyponatremia LACOSAMIDE, SERUM OR PLASMA Routine 05/23/2025 6:35 AM EDT Other superintendent terminal (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 Hypo-osmolality and hyponatremia OXCARBAZEPINE LEVEL Routine 05/23/2025 6 :35 AM EDT Other superintendent terminal (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 Hypo-osmolality and hyponatremia COMPREHENSIVE METABOLIC PANEL Routine 05/23/2025 6:35 AM EDT Other superintendent terminal (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 Hypo-osmolality and hyponatremia SODIUM, URINE, RANDOM Routine 05/22/2025 12:00 AM EDT Hypo-osmolality and hyponatremia COMPREHENSIVE METABOLIC PANEL Routine 05/21/2025 7:05 AM EDT Other disorders of electrolyte and fluid balance, not elsewhere classified COMPLETE BLOOD COUNT Routine 05/09/2025 7:10 AM EDT Other superintendent terminal (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 Other nonspecific abnormal finding of lung field BASIC METABOLIC PANEL Routine 05/09/2025 7:10 AM EDT Other superintendent terminal (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 Other nonspecific abnormal finding of lung field from Last 3 Months Results * (ABNORMAL) Comprehensive metabolic panel (07/22/2025 7:15 AM EST) Only the most recent of9 resultswithin the time period is included. Sodium 135 133 - 145 mmol/L 07/22/2025 8:33 AM [facility] Potassium 4.6 3.5 - 5.5 mmol/L 07/22/2025 8:33 AM [facility] Chloride 98 96 - 110 mmol/L 07/22/2025 8:33 AM [facility] CO2 29 21 - 32 mmol/L 07/22/2025 8:33 AM [facility] Anion Gap 8 3 - 11 07/22/2025 8:33 AM [facility] Glucose 85 70 - 100 mg/dL 07/22/2025 8:33 AM [facility] BUN 8 5 - 25 mg/dL 07/22/2025 8:33 AM [facility] Creatinine 0.57(L) 0.70 - 1.30 mg/dL 07/22/2025 8:33 AM [facility] eGFR 144 >=60 mL/min/1. 73m2 07/22/2025 8:33 AM [facility] Comment:Calculation based on the Chronic Kidney Disease Epidemiology Collaboration (CKD-EPI) equation refit without adjustment for race. BUN/Creatinine Ratio 14.0 07/22/2025 8:33 AM [facility] Calcium 9.1 8.5 - 10.5 mg/dL 07/22/2025 8:33 AM [facility] AST (SGOT) 17 10 - 42 unit/L 07/22/2025 8:33 AM [facility] ALT (SGPT) 21 10 - 60 unit/L 07/22/2025 8:33 AM [facility] Alkaline Phosphatase 134(H) 42 - 121 unit/L 07/22/2025 8:33 AM [facility] Total Protein 7.0 6.0 - 8.0 g/dL 07/22/2025 8:33 AM [facility] Albumin 4.2 3.2 - 5.0 g/dL 07/22/2025 8:33 AM [facility] Total Bilirubin 0.3 0.0 - 1.4 mg/dL 07/22/2025 8:33 AM [facility] Blood Venous blood specimen / Unknown 07/22/2025 7:15 AM EST 07/22/2025 8:02 AM EST us Konrad Ivy MD LAB BLOOD ORDERABLES Final Resul t [facility] [address] [place] [address], * Clobazam and metabolite (06/11/2025 7:05 AM EST) Only the most recent of3 resultswithin the time period is included. Clobazam 202 30 - 300 ng/mL 06/18/2025 5:44 PM EST [facility] Comment: INTERPRETIVE INFORMATION: [...] influenced by drug-drug interactions and by poor [id number] metabolism. The metabolite, N-desmethylclobazam has about 20% activity of clobazam. Adverse effects may include constipation, somnolence, sedation and skin rash. The concomitant use of clobazam with other central nervous system (RECORDS CLERK) depressants may increase the risk of somnolence and sedation. Test developed and characteristics determined by [facility]. See Compliance Statement B: [employer] N-Desmethylclobazam 1764 300 - 3000 ng/mL 06/18/2025 5:44 PM EST [facility] Comment: Performed By: [facility] [address] [place] [address] Utility Operator: Emeka Granados MD, PhD CLIA Number: [id number] Blood Venous blood specimen / Unknown 06/11/2025 7:05 AM EST 06/11/2025 7:55 AM EST us Konrad Ivy MD LAB BLOOD ORDERABLES Final Resul t [facility] [address] [place] [address] * Lacosamide level (06/11/2025 7:05 AM EST) Only the most recent of3 resultswithin the time period is included. Lacosamide 4.5 mcg/mL 06/18/2025 10:38 AM EST [facility] Comment: (Note) Expected concentrations of Lacosamide in patients receiving recommended daily dosages: Up to 15.0 mcg/mL.Toxic range not established. This test was developed and its analytical performance characteristics have been determined by [facility]. It has not been cleared or approved by the FDA. This assay has been validated pursuant to the CLIA regulations and is used for clinical purposes. [facility] [address] [facility] [address] Mirna Cano MD, PhD Test Performed at: [facility] [address], [address] [place] [address] James Cano MD, PhD Blood Venous blood specimen / Unknown 06/11/2025 7:05 AM EST 06/11/2025 7:55 AM EST us Konrad Ivy MD LAB BLOOD ORDERABLES Final Resul t [facility] [address] [place] [address] * Lavender tube (06/11/2025 7:05 AM EST) Only the most recent of3 resultswithin the time period is included. Extra Tube Hold for add-ons. 06/11/2025 9:01 AM EST [facility] Comment:Auto resulted. Blood Venous blood specimen / Unknown 06/11/2025 7:05 AM EST 06/11/2025 7:55 AM EST us Konrad Ivy MD LAB BLOOD ORDERABLES Final Resul t Performing Organization Address [facility] Co de Phone Number [facility] [address] [place] [address], [place] [phone] * Oxcarbazepine level (06/11/2025 7:05 AM EST) Only the most recent of3 resultswithin the time period is included. Oxcarbazepine 17.9 10 - 35 ug/mL 06/13/2025 1:23 PM EST [facility] Comment: If applicable, any drug confirmation testing reported here was developed and the performance characteristics determined by [facility]. This confirmation testing has not been cleared or approved by the FDA. The laboratory is regulated under CLIA as qualified to perform high-complexity testing. This test is used for patient testing purposes. It should not be regarded as investigational or for research. Test performed at [facility], [address], [place] [address] Paris Brand MD, PhD - Is/It Project Manager Blood Venous blood specimen / Unknown 06/11/2025 7:05 AM EST 06/11/2025 7:55 AM EST us Konrad Ivy MD LAB BLOOD ORDERABLES Final Resul t [facility] [address] [place] [address] * SST tube (06/06/2025 7:30 AM EST) Only the most recent of2 resultswithin the time period is included. Pathologist [facility] Extra Tube Hold for add-ons. 06/06/2025 10:02 AM EST [facility] Comment:Auto resulted. Blood Venous blood specimen / Unknown 06/06/2025 7:30 AM EST 06/06/2025 8:32 AM EST us Konrad Ivy MD LAB BLOOD ORDERABLES Final Resul t Performing Organization Address City/[facility] Co de Phone Number [facility] [address] [place] [address], [place] [phone] * (ABNORMAL) Lipid panel with reflex to direct LDL (06/06/2025 7:30 AM EST) Cholesterol 197 0 - 200 mg/dL LAB CHEMISTRY METHOD 06/06/2025 9:13 AM EST [facility] Triglycerides 55 0 - 150 mg/dL LAB CHEMISTRY METHOD 06/06/2025 9:13 AM EST [facility] HDL 66 >=40 mg/dL LAB CHEMISTRY METHOD 06/06/2025 9:13 AM EST [facility] LDL Calculated 120(H) 0 - 100 mg/dL LAB CHEMISTRY METHOD 06/06/2025 9:13 AM [facility] Comment:Estimated LDL Calcul ated using equation: Total cholesterol - HDL cholesterol - (Triglycerides/5) VLDL Cholesterol Adam 11 mg/dL LAB CHEMISTRY METHOD 06/06/2025 9:13 AM [facility] Non HDL Chol. (LDL+VLDL) 131 <145 mg/dL LAB CHEMISTRY METHOD 06/06/2025 9:13 AM [facility] Chol/HDL Ratio 3.0 0.0 - 4.4 LAB CHEMISTRY METHOD 06/06/2025 9:13 AM [facility] Blood Venous blood specimen / Unknown 06/06/2025 7:30 AM EST 06/06/2025 8:32 AM EST us Konrad Ivy MD LAB BLOOD ORDERABLES Final Resul t [facility] [address] [place] [address], * (ABNORMAL) CBC auto differential (06/06/2025 7:30 AM EST) WBC 10.1 4.8 - 10.8 K/mcL LAB HEMETOLOGY METHOD 06/06/2025 8:44 AM [facility] RBC 4.00(L) 4.50 - 5.50 M/mcL LAB HEMETOLOGY METHOD 06/06/2025 8:44 AM [facility] Hemoglobin 13.1(L) 13.5 - 17.5 g/dL LAB HEMETOLOGY METHOD 06/06/2025 8:44 AM [facility] Hematocrit 39.0(L) 42.0 - 54.0 % LAB HEMETOLOGY METHOD 06/06/2025 8:44 AM [facility] MCV 98.5(H) 79.0 - 98.0 FL LAB HEMETOLOGY METHOD 06/06/2025 8:44 AM [facility] MCH 33.1(H) 27.0 - 32.0 pcg LAB HEMETOLOGY METHOD 06/06/2025 8:44 AM [facility] MCHC 33.6 32.0 - 37.0 g/dL LAB HEMETOLOGY METHOD 06/06/2025 8:44 AM [facility] RDW 12.7 11.0 - 15.0 % LAB HEMETOLOGY METHOD 06/06/2025 8:44 AM [facility] Platelets 455(H) 130 - 400 K/mcL LAB HEMETOLOGY METHOD 06/06/2025 8:44 AM [facility] MPV 10.5 7.0 - 11.0 FL LAB HEMETOLOGY METHOD 06/06/2025 8:44 AM [facility] NRBC 0.0 <1.0 % LAB HEMETOLOGY METHOD 06/06/2025 8:44 AM [facility] NRBC Absolute 0.00 <0.10 K/mcL LAB HEMETOLOGY METHOD 06/06/2025 8:44 AM [facility] Neutrophils Relative 67.2 % LAB HEMETOLOGY METHOD 06/06/2025 8:44 AM [facility] Lymphocytes Relative 16.9 % LAB HEMETOLOGY METHOD 06/06/2025 8:44 AM [facility] Monocytes Relative 13.5 % LAB HEMETOLOGY METHOD 06/06/2025 8:44 AM [facility] Eosinophils Relative 1.2 % LAB HEMETOLOGY METHOD 06/06/2025 8:44 AM [facility] Basophils Relative 0.9 % LAB HEMETOLOGY METHOD 06/06/2025 8:44 AM [facility] Immature Granulocytes Relative 0.3 % LAB HEMETOLOGY METHOD 06/06/2025 8:44 AM [facility] Neutrophils Absolute 6.79 1.50 - 7.00 K/mcL LAB HEMETOLOGY METHOD 06/06/2025 8:44 AM EST [facility] Lymphocytes Absolute 1.71 1.00 - 5.00 K/mcL LAB HEMETOLOGY METHOD 06/06/2025 8:44 AM EST [facility] Monocytes Absolute 1.36(H) 0.20 - 1.00 K/mcL LAB HEMETOLOGY METHOD 06/06/2025 8:44 AM EST [facility] Eosinophils Absolute 0.12 0.00 - 0.50 K/[facility] LAB HEMETOLOGY METHOD 06/06/2025 8:44 AM EST [facility] Basophils Absolute 0.09 0.00 - 0.20 K/[facility] LAB HEMETOLOGY METHOD 06/06/2025 8:44 AM EST [facility] Immature Granulocytes Absolute 0.03 0.00 - 0.03 K/[facility] LAB HEMETOLOGY METHOD 06/06/2025 8:44 AM EST [facility] Blood Venous blood specimen / Unknown 06/06/2025 7:30 AM EST 06/06/2025 8:32 AM EST us Konrad Ivy MD LAB BLOOD ORDERABLES Final Resul t Performing Organization Address City/[facility]/ZIP Co de Phone Number [facility] [address] [place] [address], * Thyroid stimulating hormone (06/06/2025 7:30 AM EST) TSH 0.89 0.40 - 4.00 mcIU/mL LAB CHEMISTRY METHOD 06/06/2025 10:31 AM EST [facility] Blood Venous blood specimen / Unknown 06/06/2025 7:30 AM EST 06/06/2025 8:32 AM EST us Konrad Ivy MD LAB BLOOD ORDERABLES Final Resul t [facility] [address] [place] [address], [place] [phone] * Sodium, urine, random (05/29/2025 8:15 PM EDT) Only the most recent of2 resultswithin the time period is included. [facility] Sodium, Ur 41 mmol/L LAB CHEMISTRY METHOD 05/29/2025 11:19 PM EDT [facility] Urine Urine specimen obtained by clean catch procedure / Unknown 05/29/2025 8:15 PM EDT 05/29/2025 11:01 PM EDT us Konrad Ivy MD LAB URINE ORDERABLES Final Resul t [facility] [address] [place] [address], [place] [phone] * (ABNORMAL) Complete blood count (05/09/2025 7:10 AM EDT) [facility] WBC 8.7 4.8 - 10.8 K/mcL LAB HEMETOLOGY [facility] RBC 4.10(L) 4.50 - 5.50 M/mcL LAB HEMETOLOGY METHOD 05/09/2025 8:[address] [facility] Hemoglobin 13.6 13.5 - 17.5 g/dL LAB HEMETOLOGY METHOD 05/09/2025 8:[address] [facility] Hematocrit 38.9(L) 42.0 - 54.0 % LAB HEMETOLOGY METHOD [facility] MCV 94.6 79.0 - 98.0 FL LAB HEMETOLOGY METHOD 05/09/2025 8:[address] [facility] MCH 33.1(H) 27.0 - 32.0 pcg LAB HEMETOLOGY METHOD 05/09/2025 8:[address] [facility] MCHC 35.0 32.0 - 37.0 g/dL LAB HEMETOLOGY METHOD 05/09/2025 8:29 AM EDT [facility] RDW 12.7 11.0 - 15.0 % LAB HEMETOLOGY METHOD 05/09/2025 8:29 AM EDT [facility] Platelets 516(H) 130 - 400 K/mcL LAB HEMETOLOGY METHOD 05/09/2025 8:29 AM EDT [facility] MPV 9.8 7.0 - 11.0 FL LAB HEMETOLOGY METHOD 05/09/2025 8:29 AM EDT [facility] NRBC 0.0 <1.0 % LAB HEMETOLOGY METHOD 05/09/2025 8:29 AM EDT [facility] NRBC Absolute 0.00 <0.10 K/mcL LAB HEMETOLOGY METHOD 05/09/2025 8:29 AM EDT [facility] Blood Venous blood specimen / Unknown 05/09/2025 7:10 AM EDT 05/09/2025 8:18 AM EDT us Konrad Ivy MD LAB BLOOD ORDERABLES Final Resul t [facility] [address] [place] [address], * (ABNORMAL) Basic metabolic panel (05/09/2025 7:10 AM EDT) Sodium 135 133 - 145 mmol/L LAB CHEMISTRY METHOD 05/09/2025 8:59 AM EDT [facility] Potassium 4.8 3.5 - 5.5 mmol/L LAB CHEMISTRY METHOD 05/09/2025 8:59 AM EDT [facility] Chloride 100 96 - 110 mmol/L LAB CHEMISTRY METHOD 05/09/2025 8:59 AM EDT [facility] CO2 29 21 - 32 mmol/L LAB CHEMISTRY METHOD 05/09/2025 8:59 AM EDT [facility] Anion Gap 6 3 - 11 LAB CHEMISTRY METHOD 05/09/2025 8:[address] [facility] Glucose 86 70 - 100 mg/dL LAB CHEMISTRY METHOD 05/09/2025 8:[address] [facility] BUN 8 5 - 25 mg/dL LAB CHEMISTRY METHOD 05/09/2025 8:[address] [facility] Creatinine 0.46(L) 0.70 - 1.30 mg/dL LAB CHEMISTRY METHOD 05/09/2025 8:[address] [facility] eGFR 154 >=60 mL/min/1. 73m2 LAB CHEMISTRY METHOD 05/09/2025 8:[address] [facility] Comment:Calculation based on the Chronic Kidney Disease Epidemiology Collaboration (CKD-EPI) equation refit without adjustment for race. BUN/Creatinine Ratio 17.4 LAB CHEMISTRY METHOD 05/09/2025 8:[address] [facility] Calcium 9.5 8.5 - 10.5 mg/dL LAB CHEMISTRY METHOD 05/09/2025 8:[address] [facility] Blood Venous blood specimen / Unknown 05/09/2025 7:10 AM EDT 05/09/2025 8:18 AM EDT us Konrad Ivy MD LAB BLOOD ORDERABLES Final Resul t [facility] [address] [place] [address], from Last 3 Months Insurance MEDICAID - [place] [facility] Care Teams Recreation Therapy Aide Relationship Specialty Start Date End Date Konrad Ivy MD [address] [place] [address] Dr [address] DILMA Gaffney PCP - General Internal Medicine 12/03/24
--- OUTSIDE RECORDS SUMMARY | 2025-07-23 13:56 | XMS_ITS | Encounter Summary ---
Author Organization [facility] Address [address] [place] [address] Care Team Providers Care Aviculturist Name Role Phone Konrad Ivy MD Primary Care Provider [phone] Encounter Details Date Type Department Care Team (Late st Contact Info) Description 07/04/2025 Lab Requisition [facility] [address] [place] [address] Konrad Ivy MD [address] [place] [address] Dr [address] [place], [place] Hypo-osmolality and hyponatremia Social History Tobacco [...] documented as of this encounter Visit Diagnoses Diagnosis Hypo-osmolality and hyponatremia documented in this encounter Care Teams Aviculturist Relationship Specialty Start Date End Date Konrad Ivy MD [address] [place] [address] Dr [address] [place], [place] PCP - General Internal Medicine 12/03/24 documented as of this encounter
--- OUTSIDE RECORDS SUMMARY | 2025-07-23 13:56 | XMS_ITS | Encounter Summary ---
Author Organization [employer] Address [address] [place] [address] Care Team Providers Care Truck Driver Teamster Name Role Phone Konrad Ivy MD Primary Care Provider Encounter Details Date Type Department Care Team (Late st Contact Info) Description 12/03/2024 Lab Requisition [facility] [address] [facility] [place] [address] Konrad Ivy MD [address] [place] [address] [address] [place] Epilepsy, unspecified, not intractable, without status epilepticus [...] * Lacosamide level (12/03/2024 7:05 AM EDT) [facility] Lacosamide 2.1 mcg/mL 12/12/2024 4:40 PM EDT [facility] Comment: (Note) Expected concentrations of Lacosamide in patients receiving recommended daily dosages: Up to 15.0 mcg/mL.Toxic range not established. This test was developed and its analytical performance characteristics have been determined by [employer]. It has not been cleared or approved by the FDA. This assay has been validated pursuant to the CLIA regulations and is used for clinical purposes. [facility] [address] [place] [address],[address] [facility] [address] Mirna Cano MD, PhD Test Performed at: [facility] [address] [place] [address], [address] [place] [address] James Cano MD, PhD Blood Venous blood specimen / Unknown 12/03/2024 7:05 AM EDT 12/06/2024 12:04 PM EDT us Konrad Ivy MD LAB BLOOD ORDERABLES Final [place]ul [place] [address] * (ABNORMAL) CBC auto differential (12/03/2024 7:05 AM EDT) WBC 8.8 4.8 - 10.8 K/mcL LAB HEMETOLOGY METHOD 12/03/2024 8:47 AM EDT [facility] RBC 4.60 4.50 - 5.50 M/mcL LAB HEMETOLOGY METHOD 12/03/2024 8:47 AM [facility] Hemoglobin 13.8 13.5 - 17.5 g/dL LAB HEMETOLOGY METHOD 12/03/2024 8:47 AM [facility] Hematocrit 40.8(L) 42.0 - 54.0 % LAB HEMETOLOGY METHOD 12/03/2024 8:47 AM [facility] MCV 89.7 79.0 - 98.0 FL LAB HEMETOLOGY METHOD 12/03/2024 8:47 AM [facility] MCH 30.3 27.0 - 32.0 pcg LAB HEMETOLOGY METHOD 12/03/2024 8:47 AM [facility] MCHC 33.8 32.0 - 37.0 g/dL LAB HEMETOLOGY METHOD 12/03/2024 8:47 AM [facility] RDW 15.3(H) 11.0 - 15.0 % LAB HEMETOLOGY METHOD 12/03/2024 8:47 AM [facility] Platelets 225 130 - 400 K/mcL LAB HEMETOLOGY METHOD 12/03/2024 8:47 AM [facility] Comment:occ plt clump seen o n slide MPV 13.0(H) 7.0 - 11.0 FL LAB HEMETOLOGY METHOD 12/03/2024 8:47 AM [facility] NRBC 0.0 <1.0 % LAB HEMETOLOGY METHOD 12/03/2024 8:47 AM [facility] NRBC Absolute 0.00 <0.10 K/mcL LAB HEMETOLOGY METHOD 12/03/2024 8:47 AM [facility] Neutrophils Relative 48.3 % LAB HEMETOLOGY METHOD 12/03/2024 8:47 AM [facility] Comment:This is an appended report. These results have been appended to a previously preliminary verified report. Lymphocytes Relative 27.5 % LAB HEMETOLOGY METHOD 12/03/2024 8:47 AM [facility] Comment:This is an appended report. These results have been appended to a previously preliminary verified report. Monocytes Relative 21.0 % LAB HEMETOLOGY METHOD 12/03/2024 8:47 AM [facility] Comment:This is an appended report. These results have been appended to a previously preliminary verified report. Eosinophils Relative 2.0 % LAB HEMETOLOGY METHOD 12/03/2024 8:47 AM [facility] Comment:This is an appended report. These results have been appended to a previously preliminary verified report. Basophils Relative 1.1 % LAB HEMETOLOGY METHOD 12/03/2024 8:47 AM [facility] Comment:This is an appended report. These results have been appended to a previously preliminary verified report. Immature Granulocytes Relative 0.1 % LAB HEMETOLOGY METHOD 12/03/2024 8:47 AM [facility] Comment:This is an appended report. These results have been appended to a previously preliminary verified report. Neutrophils Absolute 4.26 1.50 - 7.00 K/mcL LAB HEMETOLOGY METHOD 12/03/2024 8:47 AM [facility] Comment:This is an appended report. These results have been appended to a previously preliminary verified report. Lymphocytes Absolute 2.43 1.00 - 5.00 K/mcL LAB HEMETOLOGY METHOD 12/03/2024 8:47 AM EDT [facility] Comment:This is an appended report. These results have been appended to a previously preliminary verified report. Monocytes Absolute 1.85(H) 0.20 - 1.00 K/[facility] 12/03/2024 8:47 AM EDT [facility] Comment:This is an appended report. These results have been appended to a previously preliminary verified report. Eosinophils Absolute 0.18 0.00 - 0.50 K/[facility] 12/03/2024 8:47 AM EDT [facility] Comment:This is an appended report. These results have been appended to a previously preliminary verified report. Basophils Absolute 0.10 0.00 - 0.20 K/[facility] LAB HEMETOLOGY METHOD 12/03/2024 8:47 AM EDT [facility] Comment:This is an appended report. These results have been appended to a previously preliminary verified report. Immature Granulocytes Absolute 0.01 0.00 - 0.03 K/[facility] 12/03/2024 8:47 AM EDT [facility] Comment:This is an appended report. These results have been appended to a previously preliminary verified report. Blood Venous blood specimen / Unknown 12/03/2024 7:05 AM EDT 12/03/2024 7:44 AM EDT us Konrad Ivy MD LAB BLOOD ORDERABLES Final Resul t [facility] [address] [place] [address], * Thyroid stimulating hormone (12/03/2024 7:05 AM EDT) TSH 1.04 0.40 - 4.00 mcIU/mL LAB CHEMISTRY METHOD 12/03/2024 10:58 AM EDT [facility] Blood Venous blood specimen / Unknown 12/03/2024 7:05 AM EDT 12/03/2024 7:44 AM EDT us Konrad Ivy MD LAB BLOOD ORDERABLES Final Resul t Performing Organization Address [facility]/ZIP Co de Phone Number [facility] [address] [place] [address], [place] [phone] * Oxcarbazepine level (12/03/2024 7:05 AM EDT) Oxcarbazepine 13.4 10 - 35 ug/mL 12/05/2024 1:46 PM EDT [facility] Comment: If applicable, any drug confirmation testing reported here was developed and the performance characteristics determined by [facility]. This confirmation testing has not been cleared or approved by the FDA. The laboratory is regulated under CLIA as qualified to perform high-complexity testing. This test is used for patient testing purposes. It should not be regarded as investigational or for research. Test performed at [facility], [address], [place] [address] Paris Brand MD, PhD - Die Tester Blood Venous blood specimen / Unknown 12/03/2024 7:05 AM EDT 12/03/2024 7:44 AM EDT us Konrad Ivy MD LAB BLOOD ORDERABLES Final Resul t Performing Organization Address City/[facility]/ZIP Co de Phone Number [facility] [address] [place] [address] * (ABNORMAL) Clobazam and metabolite (12/03/2024 7:05 AM EDT) Clobazam 117 30 - 300 ng/mL 12/09/2024 7:43 AM EDT [facility] Comment: INTERPRETIVE INFORMATION: Clobazam and Metabolite, [...] influenced by drug-drug interactions and by poor [id number] metabolism. The metabolite, N-desmethylclobazam has about 20% activity of clobazam. Adverse effects may include constipation, somnolence, sedation and skin rash. The concomitant use of clobazam with other central nervous system (QA AUTOMATION ARCHITECT) depressants may increase the risk of somnolence and sedation. Test developed and characteristics determined by [employer]. See Compliance Statement B: Z Plane/CS N-Desmethylclobazam 3375(H) 300 - 3000 ng/mL 12/09/2024 7:43 AM EDT [facility] Comment: Performed By: [facility] [address] [place] [address] Client Success Specialist: Emeka Granados MD, PhD CLIA Number: [id number] Blood Venous blood specimen / Unknown 12/03/2024 7:05 AM EDT 12/03/2024 7:44 AM EDT us Konrad Ivy MD LAB BLOOD ORDERABLES Final Resul t [facility] [address] [place] [address] * Lipid panel with reflex to direct LDL (12/03/2024 7:05 AM EDT) [facility] Cholesterol 156 0 - 200 mg/dL LAB CHEMISTRY METHOD 12/03/2024 8:55 AM EDT [facility] Triglycerides 67 0 - 150 mg/dL LAB CHEMISTRY METHOD 12/03/2024 8:55 AM EDT [facility] HDL 52 >=40 mg/dL LAB CHEMISTRY METHOD 12/03/2024 8:55 AM EDT [facility] LDL Calculated 91 0 - 100 mg/dL LAB CHEMISTRY METHOD 12/03/2024 8:55 AM EDT [facility] VLDL Cholesterol Adam 13.4 mg/dL LAB CHEMISTRY METHOD 12/03/2024 8:55 AM [facility] Non HDL Chol. (LDL+VLDL) 104 <145 mg/dL LAB CHEMISTRY METHOD 12/03/2024 8:55 AM T [facility] Chol/HDL Ratio 3.0 0.0 - 4.4 LAB CHEMISTRY METHOD 12/03/2024 8:55 AM [facility] Blood Venous blood specimen / Unknown 12/03/2024 7:05 AM EDT 12/03/2024 7:44 AM EDT us Konrad Ivy MD LAB BLOOD ORDERABLES Final Resul t [facility] [address] [place] [address], [place] [phone] * (ABNORMAL) Comprehensive metabolic panel (12/03/2024 7:05 AM EDT) Sodium 133 133 - 145 mmol/L LAB CHEMISTRY METHOD 12/03/2024 8:55 AM [facility] Potassium 4.3 3.5 - 5.5 mmol/L LAB CHEMISTRY METHOD 12/03/2024 8:55 AM [facility] Comment:Hemolysis present Chloride 101 96 - 110 mmol/L LAB CHEMISTRY METHOD 12/03/2024 8:55 AM [facility] CO2 25 21 - 32 mmol/L LAB CHEMISTRY METHOD 12/03/2024 8:55 AM [facility] Anion Gap 7 3 - 11 LAB CHEMISTRY METHOD 12/03/2024 8:55 AM [facility] Glucose 80 70 - 100 mg/dL LAB CHEMISTRY METHOD 12/03/2024 8:55 AM [facility] BUN 9 5 - 25 mg/dL LAB CHEMISTRY METHOD 12/03/2024 8:55 AM [facility] Creatinine 0.40(L) 0.70 - 1.30 mg/dL LAB CHEMISTRY METHOD 12/03/2024 8:55 AM [facility] eGFR 161 >=60 mL/min/1. 73m2 LAB CHEMISTRY METHOD 12/03/2024 8:55 AM [facility] Comment:Calculation based on the Chronic Kidney Disease Epidemiology Collaboration (CKD-EPI) equation refit without adjustment for race. BUN/Creatinine Ratio 22.5 LAB CHEMISTRY METHOD 12/03/2024 8:55 AM [facility] Calcium 9.4 8.5 - 10.5 mg/dL LAB CHEMISTRY METHOD 12/03/2024 8:55 AM [facility] AST (SGOT) 20 10 - 42 unit/L LAB CHEMISTRY METHOD 12/03/2024 8:55 AM [facility] Comment:Hemolysis present ALT (SGPT) 23 10 - 60 unit/L LAB CHEMISTRY METHOD 12/03/2024 8:55 AM [facility] Alkaline Phosphatase 144(H) 42 - 121 unit/L LAB CHEMISTRY METHOD 12/03/2024 8:55 AM [facility] Total Protein 6.7 6.0 - 8.0 g/dL LAB CHEMISTRY METHOD 12/03/2024 8:55 AM [facility] Albumin 3.5 3.2 - 5.0 g/dL LAB CHEMISTRY METHOD 12/03/2024 8:55 AM [facility] Total Bilirubin 0.3 0.0 - 1.4 mg/dL LAB CHEMISTRY METHOD 12/03/2024 8:55 AM [facility] Blood Venous blood specimen / Unknown 12/03/2024 7:05 AM EDT 12/03/2024 7:44 AM EDT Konrad Ivy MD LAB BLOOD ORDERABLES Final Resul t [facility] ([facility]) [facility] [address] [place] [address], documented in this encounter Visit Diagnoses Diagnosis Epilepsy, unspecified, not intractable, without status epilepticus (CMS/HCC V24, CMS/HCC V28) documented in this encounter Care Teams Truck Driver Teamster Relationship Specialty Start Date End Date Konrad Ivy MD [address] [place] [address] Dr [address] [place], [place] PCP - General Internal Medicine 12/03/24 documented as of this encounter
--- OUTSIDE RECORDS SUMMARY | 2025-07-23 13:56 | XMS_ITS | Encounter Summary ---
Author Organization [facility] Address [address] [place] [address] Care Team Providers Care Armored Car Guard Name Role Phone Konrad Ivy MD Primary Care Provider [phone] Encounter Details Date Type Department Care Team (Late st Contact Info) Description 05/29/2025 Lab Requisition [facility] [address] [place] [address] Konrad Ivy MD [address] [place] [address] Dr [address] [place], [place] Hypo-osmolality and hyponatremia Social History Tobacco [...] Associated Diagnosis Comments SODIUM, URINE, RANDOM Routine 05/29/2025 8:15 PM EDT Hypo-osmolality and hyponatremia documented in this encounter Results * Sodium, urine, random (05/29/2025 8:15 PM EDT) Sodium, Ur 41 mmol/L LAB CHEMISTRY METHOD 05/29/2025 11:19 PM EDT [facility] Urine Urine specimen obtained by clean catch procedure / Unknown 05/29/2025 8:15 PM EDT 05/29/2025 11:01 PM EDT us Konrad Ivy MD LAB URINE ORDERABLES Final Resul t [facility] [address] [place] [address], [place] [phone] documented in this encounter Visit Diagnoses Diagnosis Hypo-osmolality and hyponatremia documented in this encounter Care Teams Armored Car Guard Relationship Specialty Start Date End Date Konrad Ivy MD [address] [place] [address] Dr [address] [place] PCP - General Internal Medicine 12/03/24 documented as of this encounter
--- OUTSIDE RECORDS SUMMARY | 2025-07-23 13:56 | XMS_ITS | Clinical Summary ---
Author Organization [employer] [facility] Address [address] [facility] [address] [place] [address] Care Team Providers Care Marine Resource Economist Name Role Phone Unavailable Primary Care Provider Unavailabl e Allergies Active Allergy Reactions Criticality Noted Date Comments Cefepime 02/14/2025 Oztptw-Czohd-Dvaurbxsgnaf 02/14/2025 Allergic to adhesive tape Sulfadiazine 02/14/2025 [...] topically if needed for dry skin. Active Social History Tobacco Use Types Packs/Day Years [...] Care Team (Late st Contact Info) Description 07/29/2025 1:00 PM EST Office Visit [facility] [address] [place] [address] Cher Baer DDS [address] [place] [address] Health Maintenance Due Date Last Done Comments [...] 3-dose series) 10/08/2023 COVID-19 Vaccine (1 - 2024-2 6 season) 2025 Influenza Vaccine (#1) 2025 Dental [...] Procedure Name Priority Date/Time Associated Diagnosis Comments PROPHYLAXIS - ADULT Routine 02/14/2025 8 :15 AM EDT COMPREHENSIVE ORAL EVALUATION - NEW OR ESTABLISHED PATIENT Routine 02/14/2025 8:15 AM EDT from Last 3 Months or Most Recently Relevant to Health Maintenance Insurance [facility] MEDICAID STAND CHILD
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
== END 2025-07-23 14:24 | disposition home or self-care (01) ==
LOC: HO.HSM 13:53
PROVIDERS: Visit Provider Psychiatry & Neurology Neurology
DX: S06.9X5S Unspecified intracranial injury with loss of consciousness greater than 24 hours with return to pre-existing conscious level, sequela (principal); Z98.2 Presence of cerebrospinal fluid drainage device; G93.49 Other encephalopathy; G93.89 Other specified disorders of brain; G40.909 Epilepsy, unspecified, not intractable, without status epilepticus
CPT/HCPCS: 99215